=== PATIENT | male | born 1960 | race Caucasian/White ===

== ENCOUNTER 2017-05-03 15:09 | Inpatient (IN) ==
--- NOTE | 2017-05-03 16:19 | Emergency Department Note ---
Radha Dawson Hilary, am scribing for, and in the presence of, Tariq Donis MD 16: 00. Jewels Dawson James D, MD, personally performed the services described in this documentation, ascribed by Maria R Garcia in my presence, and it is both accurate and complete 618 . Arrival - Arrival Chief Complaint: Extremity Problem Stated Complaint: Both legs have blisters/can't walk ED Nursing Triage Note: c/o bilateral lower extremity pain and redness onset 2 weeks ago. Blisters noted to left lower leg. +pedal pulse right foot. Unable to palpate pulse left foot, + pulse left foot with doppler. Skin warm to touch to bilateral feet. Pain worse upon weight bearing. Mode of Arrival: Wheelchair Limitations: No Limitations Source: Patient, RN Notes Reviewed Time Seen by Provider: 05/03/17 15:46 - History of Present Illness HPI Narrative: Pt is a 57 y/o male presenting to the ED with c/o bilateral lower extremity pain and redness which onset 2 weeks ago. He confirms chronic SOB, cough and bilateral lower extremity pain but denies fever or chest pain. He reports being at [facility] this week and was told there was nothing more he could do for him. No other complaints or problems stated in the ED. Onset (ago): week(s) Consistency: constant Severity: severe Severity scale (1-10): 4 Quality: aching Allergies/Adverse Reactions: Allergies Allergy/AdvReac Type Severity Reaction Status Date / Time No Known Allergies Allergy Verified 05/03/17 15:26 Home Medications: Home Medications Medication Instructions Recorded Confirmed Type Digoxin Tab [Lanoxin Tab] 0.25 mg PO QAM 05/03/17 05/03/17 History Furosemide Tab [Lasix Tab] 40 mg PO BID DIURETIC 05/03/17 05/03/17 History Isosorbide Dinitrate 20 mg PO BID 05/03/17 05/03/17 History Lisinopril 40 mg PO DAILY 05/03/17 05/03/17 History Melatonin 10 mg PO BEDTIME 05/03/17 05/03/17 History Metoprolol Tartrate 100 mg PO BID W/MEALS 05/03/17 05/03/17 History Sitagliptin Phos/Metformin HCl 1 each PO BID 05/03/17 05/03/17 History [Janumet 50-1,000 mg Tablet] Warfarin [Coumadin] 5 mg PO BEDTIME 05/03/17 05/03/17 History dilTIAZem HCl [Diltiazem ER (24 360 mg PO DAILY 05/03/17 05/03/17 History hr)] Review of System - Review of System 12 point system: reviewed and no additional remarkable complaints except as stated - Review of System Constitutional: Absent: fever Cardiovascular: Absent: chest pain Gastrointestinal: Absent: abdominal pain Musculoskeletal: Present: leg pain Medical,Surgical,& Family Hx - Medical History Cardio: History of: Cardiac Dysrhythmia (a-fib), CHF, Hypertension Neurology: History of: Peripheral Neuropathy Endocrine: History of: Diabetes Mellitus (IDDM), Dyslipidemia Respiratory: History of: COPD - Surgical History Abdominal Surgeries: Surgical HX of: Hernia Repair - Social History Smoking Status: Current every day smoker Frequency of Alcohol Use: None Type of Drug Use: None Exam Physical Examination: GENERAL: This is a morbidly obese chronically ill-appearing white male in no apparent distress. VITAL SIGNS: Temperature: 97.3 Pulse: 62 Respiratory: 22 Blood Pressure: 127/ 69 O2 Sat: 96 HEENT: Head is normocephalic and atraumatic. Pupils are equally round and reactive to light. Extraocular movement are intact. Oropharynx is benign with moist mucous membranes. NECK: Neck is soft and supple without tenderness. There are no masses. There is no lymphadenopathy. LUNGS: Lungs are clear to auscultation bilaterally. Chest rises symmetrically. There is no chest wall tenderness. CV: Heart is regular rate and rhythm without murmurs, rubs, or gallops. ABDOMEN: Abdomen is soft, non-tender to palpation. There are no abnormal masses palpated. There is no organomegaly. Bowel sounds are present and active. SKIN: Skin is warm and dry. No rash. EXTREMITIES: Patient has full range of motion. There is 3+ pitting pedal edema with weeping vesicles of the pretibia areas, bilaterally. NEUROLOGIC: Awake, alert, and oriented x4. Cranial nerves II through XII are grossly intact. There are no motorsensory deficits. PSYCHIATRIC: Normal affect. Normal mood. Vital Signs: Vital Signs Temperature 97.3 F L 05/03/17 15:34 Pulse Rate 62 05/03/17 15:34 Respiratory Rate 22 05/03/17 15:34 Blood Pressure 127/69 05/03/17 15:34 O2 Sat by Pulse Oximetry 96 05/03/17 15:17 Course Course Narrative: Patient is obviously chronically ill and has been told repeatedly to discontinue cigarette smoking. The patient has also undergone polysomnogram and states that he could not get the machine because "my clinic could not afford it". Patient has recently been hospitalized at [facility] and was told that there was nothing else that can be done for him. The patient is also seen a doctor in [place] who apparently told him the same thing. - Consultations Consultation #1: Discussed with hospitalist. Patient will be seen by them in the emergency department. Time: 17:21 Results - Labs CBC & BMP: 05/03/17 16:16 05/03/17 16:16 Lab Results: I have reviewed the patients labs Labs: Laboratory Tests 05/03/17 05/03/17 16:16 16:55 ABG pH 7.469 H ABG pCO2 38.4 ABG pO2 74.2 L ABG HCO3 27.3 H ABG Total CO2 28.4 H ABG O2 Saturation 95.9 B-Natriuretic Peptide 91 - Diagnostic Findings Procedure: Chest x-ray: image reviewed by me (Cardiomegaly) Disposition Clinical Impression: Obstructive sleep apnea, Lower extremity edema, Nicotine addiction, Medical non -compliance, Skin ulcer of multiple sites of lower extremity, limited to breakdown of skin Case discussed with: patient Disposition: Still a Patient Condition: Stable Time of Disposition: 17:21
[2017-05-03 16:23] LABS: Basophils # 0.1 10*3/uL (0.0-0.2); Basophils % 1.2 % (0.0-0.8); Eosinophils # 0.3 10*3/uL (0.0-0.87); Eosinophils % 2.3 % (0.00-10.9); Hematocrit 44.1 VOL% (42.0-52.0); Hemoglobin 15.1 GM/DL (14.0-18.0); Immature Granulocytes % 0.7 %; Immature Granulocytes Absolute 0.08 #; Lymphocytes # 2.9 10*3/uL (1.4-4.0); Lymphocytes % 26.8 % (21.2-54.2); Mean Corpuscular HGB Conc 34.2 GM/DL (32-36); Mean Corpuscular Hemoglobin 28 PG (27-34); Mean Corpuscular Volume 80.8 FL (87-102); Mean Platelet Volume 10.8 FL (9.6-12.0); Monocytes # 0.7 10*3/uL (0.11-0.8); Monocytes % 6.8 % (1.7-12.7); Neutrophils # 6.7 10*3/uL (1.4-7.4); Neutrophils % 62.2 % (38.7-73.9); Platelet Count 213 T/CUMM (130-400); Red Blood Count 5.46 MC/CUMM (3.8-5.5); Red Cell Distribution Width 17.1 % (9.3-17.3); White Blood Count 10.8 T/CUMM (4-12)
--- NOTE | 2017-05-03 16:24 | XRay Report ---
2 view chest May 03, 2017 at 1610 hours Indication: Shortness of breath Comparison: Not available Findings: Heart size is enlarged. Low lung volumes. Faint central interstitial opacities, may represent atelectasis given poor inspiratory effort. No acute osseous abnormalities. Visualized upper abdomen demonstrates no acute pathology. Impression: Vague central interstitial opacities, representing atelectasis given poor inspiratory effort. Early interstitial edema not excluded. PROCEDURE INTERPRETED AT [facility] DEPARTMENT OF RADIOLOGY Final Report Signed by: Brandon Lomax
[2017-05-03 16:46] LABS: Albumin 3.2 G/DL (3.4-5.0); Bilirubin,Total 0.4 MG/DL (0.2-1.0); Calcium 9.1 MG/DL (8.5-10.1); Osmolality,Calculated 280.7 MOS/KG (273-304); Potassium 4.4 MMOL/L (3.5-5.1); Total Protein 7.4 G/DL (6.4-8.3)
[2017-05-03 17:07] LABS: ABG Base Excess 3.5 MMOL/L (-2.5-2.5); ABG HCO3 27.3 MMOL/L (20-26); ABG Oxygen Saturation 95.9 % (95-100); ABG PCO2 38.4 MM HG (35-48); ABG PH 7.469 (7.35-7.45); ABG PO2 74.2 MM HG (80-95); ABG TCO2 28.4 MMOL/L (23-27); Allen Test Positive; Pt O2 Delivery Device Room Air
--- NOTE | 2017-05-03 18:09 | Hospitalist History & Physical ---
Assessment and Plan - Time spent with patient Time spent with patient: Greater than 30 minutes (1) Blister of lower extremity without infection Status: Acute Assessment and plan: 57-year-old morbidly obese white male with congestive heart failure, diabetes, hypertension, A. fib on Coumadin, chronic lower extremity edema, untreated JOSE A admitted by the hospitalist service with shortness of breath, pulmonary hypertension, and bilateral lower extremity edema with cellulitis and open wounds. Patient will be admitted to a monitored bed and will begin diuresis. Consult Dr. Cronin in the morning for sleep medicine evaluation. Will restart patient's home medications and started him on sliding scale insulin for diabetes management. Will consult wound care nurse in the morning for wound management. Dr. Ladd has seen and examined patient and further recommendations to follow. Current Visit: Yes (2) Diabetes Status: Acute Current Visit: Yes (3) Hypertension Status: Acute Current Visit: Yes (4) A-fib Status: Acute Current Visit: Yes (5) Chronic anticoagulation Status: Acute Current Visit: Yes (6) Congestive heart failure Status: Acute Current Visit: Yes (7) Lower extremity edema Status: Acute Current Visit: Yes (8) Medical non-compliance Status: Acute Current Visit: Yes (9) Nicotine addiction Status: Acute Current Visit: Yes (10) Obstructive sleep apnea Status: Acute Current Visit: Yes History of Present Illness Chief complaint: Lower extremity pain and edema History of present illness: Mr. Montelongo is a 57 year old white male with history of diabetes, hypertension, A. fib on Coumadin, tobacco abuse, CHF, untreated JOSE A and CAD status post stents presenting to the ED with a 1 month history of progressive bilateral lower extremity swelling and pain. Patient states he has always had swelling in his legs with redness but a proximally 1 month ago it seemed to worsen. He was admitted to [facility] for 2 weeks for antibiotics and was recently released. Patient states the swelling worsened along with the redness and pain and he developed blisters that have popped. Patient also states he was admitted to [facility] in the past year where her heart cath with stents were done. They told him at that time he needed a heart bypass but would not do it due to his chronic smoking. Patient sees Dr. 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 Upon exam patient has conversational dyspnea with pitting edema to the knees of bilateral lower extremities with erythema and open blistering. He is afebrile vital signs are stable and his labs are relatively normal. Chest x-ray shows vague interstitial opacities with atelectasis and early interstitial edema. After discussion with Dr. Lino the ED physician and Dr. Ladd the admitting hospitalist, it was agreed patient would be admitted for further evaluation and treatment. Home Medications Medication Instructions Recorded Confirmed Type Digoxin Tab [Lanoxin Tab] 0.25 mg PO QAM 05/03/17 05/03/17 History Furosemide Tab [Lasix Tab] 40 mg PO BID DIURETIC 05/03/17 05/03/17 History Isosorbide Dinitrate 20 mg PO BID 05/03/17 05/03/17 History Lisinopril 40 mg PO DAILY 05/03/17 05/03/17 History Melatonin 10 mg PO BEDTIME 05/03/17 05/03/17 History Metoprolol Tartrate 100 mg PO BID W/MEALS 05/03/17 05/03/17 History Sitagliptin Phos/Metformin HCl 1 each PO BID 05/03/17 05/03/17 History [Janumet 50-1,000 mg Tablet] Warfarin [Coumadin] 5 mg PO BEDTIME 05/03/17 05/03/17 History dilTIAZem HCl [Diltiazem ER (24 360 mg PO DAILY 05/03/17 05/03/17 History hr)] Allergies Allergy/AdvReac Type Severity Reaction Status Date / Time No Known Allergies Allergy Verified 05/03/17 15:26 Medical,Surgical,& Family Hx - Medical History Cardio: History of: Cardiac Dysrhythmia (a-fib), CHF, Hypertension Neurology: History of: Peripheral Neuropathy Endocrine: History of: Diabetes Mellitus (IDDM), Dyslipidemia Respiratory: History of: COPD - Surgical History Cardiac Surgeries: Sugical HX of: Cardiac Catheterization Abdominal Surgeries: Surgical HX of: Hernia Repair - Family History Family History: Reports;: Family Heart Disease - Social History Smoking Status: Current every day smoker Frequency of Alcohol Use: None Type of Drug Use: None Marital Status: Legally Lives With:: Alone Functional capacity: independent ambulation 12 point system: reviewed and no additional remarkable complaints except as stated Exam - Constitutional Vitals: Period Temp Pulse Resp BP Sys/Pierre Pulse Ox Last 24 Hr 97.3 F-97.3 F 62-62 22-22 127-127/69-69 96 Exam: Constitutional System: No distress. [No] tremulousness. Head: Normocephalic, atraumatic. Ears, Nose and Throat System: No evidence of Otitis or Mastoiditis. No epistaxis or discharge Eyes System: Pupils equal, round, and reactive. Extraocular muscles intact. Neck: Supple, without adenopathy, [No] jugular venous distention. No thyromegaly , neck mass, or prior surgery apparent. Respiratory System: Chest [clear] to auscultation. Cardiovascular System: Heart with [regular] rate and rhythm. [No] murmur. GI System: Abdomen [soft], [non]tender, obese. [Normo]active bowel sounds present. Musculoskeletal System: limbs with +4 pitting edema to the knees, erythema, open draining blisters bilateral. Doppler distal pulses. Neurological System: [No discernable] sensory deficit. [No] aphasia Psychiatric System: Conversation is [rational] Results - Labs CBC & BMP: 05/03/17 16:16 05/03/17 16:16 Lab Results: I have reviewed the past 24 hour labs - Diagnostic Findings Procedure: Chest x-ray: report reviewed by me (Vague central interstitial opacities, representing atelectasis given poor inspiratory effort. Early interstitial edema not excluded)
[2017-05-03 18:30] LABS: INR 2.4
[2017-05-03 18:35] LABS: PT Patient Result 26.7 SECS
[2017-05-03] MEDS ORDERED: GLUCAGON 1 MG VIAL IM PRN (18:59)
[2017-05-03] MEDS ORDERED: ONDANSETRON 4 MG/2 ML VIAL IV PRN (18:59)
[2017-05-03] MEDS ORDERED: DEXTROSE 50% 25 GM/50 ML SYRINGE IV PRN (18:59)
[2017-05-03 19:01] LABS: Free T4 (Free Thyroxine) 0.99 NG/DL (0.76-1.46); Thyroid Stimulating Hormone 1.57 uIU/ml (0.358-3.74)
[2017-05-03] MEDS: FUROSEMIDE 40 MG/4 ML VIAL IV SCH (21:05)
[2017-05-03] MEDS: ISOSORBIDE DINITRATE 20 MG TABLET PO SCH (21:33)
[2017-05-03] MEDS: MELATONIN 3 MG TABLET PO SCH (21:33)
[2017-05-03] MEDS: INSULIN LISPRO 100 UNIT/ML SUBCUT SCH (21:33)
[2017-05-03] MEDS: sitaGLIPtin 25 MG TABLET PO SCH (21:34)
[2017-05-03] MEDS: metFORMIN 500 MG TABLET PO SCH (21:34)
[2017-05-03] MEDS: WARFARIN 5 MG TABLET PO SCH (21:35)
[2017-05-04] MEDS: FUROSEMIDE 40 MG/4 ML VIAL IV SCH ×4 (03:08→20:32)
[2017-05-04 04:16] LABS: Basophils # 0.1 10*3/uL (0.0-0.2); Basophils % 1.6 % (0.0-0.8); Eosinophils # 0.4 10*3/uL (0.0-0.87); Eosinophils % 4.3 % (0.00-10.9); Hematocrit 45.9 VOL% (42.0-52.0); Hemoglobin 15.4 GM/DL (14.0-18.0); Immature Granulocytes % 0.7 %; Immature Granulocytes Absolute 0.06 #; Lymphocytes # 2.9 10*3/uL (1.4-4.0); Lymphocytes % 34.4 % (21.2-54.2); Mean Corpuscular HGB Conc 33.6 GM/DL (32-36); Mean Corpuscular Hemoglobin 27 PG (27-34); Mean Corpuscular Volume 81.5 FL (87-102); Mean Platelet Volume 11.1 FL (9.6-12.0); Monocytes # 0.6 10*3/uL (0.11-0.8); Monocytes % 7.5 % (1.7-12.7); Neutrophils # 4.3 10*3/uL (1.4-7.4); Neutrophils % 51.5 % (38.7-73.9); Platelet Count 220 T/CUMM (130-400); Red Blood Count 5.63 MC/CUMM (3.8-5.5); Red Cell Distribution Width 17.9 % (9.3-17.3); White Blood Count 8.3 T/CUMM (4-12)
[2017-05-04 04:36] LABS: Hemoglobin A1C 8.1 % (4.2-6.3)
[2017-05-04 04:51] LABS: Calcium 8.9 MG/DL (8.5-10.1); Osmolality,Calculated 276.7 MOS/KG (273-304); Potassium 3.8 MMOL/L (3.5-5.1); Risk Ratio 7.53; VLDL CHOLESTEROL 90.4 MG/DL
--- NOTE | 2017-05-04 06:58 | EKG Report ---
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
[2017-05-04] MEDS ORDERED: POTASSIUM CHLORIDE RIDER 10 MEQ in PREMIX 1 EACH IV PRN (07:51)
[2017-05-04] MEDS ORDERED: MAGNESIUM SULF RIDER 4 GM in PREMIX 1 EACH IV PRN (07:51)
[2017-05-04] MEDS ORDERED: MAGNESIUM SULF RIDER 2 GM in PREMIX 1 EACH IV PRN (07:51)
[2017-05-04 08:13] LABS: Apearance,Urine CLEAR (Clear); Bilirubin,Urine Negative (Negative); Blood, Urine Negative (Negative); Glucose,Urine (UA) Negative (Negative); Ketones,Urine Negative (Negative); Mucus,Urine Occasional /LPF (Occasional); Nitrite,Urine Negative (Negative); Protein,Urine 30 MG/DL; RBC,Urine <1 /HPF (0-4); Squamous Epithelial Cell,Urine Occasional /HPF (0-10); Urine Color Yellow (Yellow); Urine Urobilinogen < 2.0 EU/DL (0.2-1.0); WBC,Urine <1 /HPF (0-6)
--- NOTE | 2017-05-04 08:55 | Hospitalist Progress Note ---
<Jackie Delucada - Last Filed: 05/04/17 08:52> Assessment and Plan (1) Chronic anticoagulation Status: Acute Assessment and plan: The patient is chronically coagulated with warfarin. No INR ordered for this morning, we will order stat INR and adjust Coumadin accordingly. Current Visit: Yes (2) Lower extremity edema Status: Acute Assessment and plan: The wounds to the bilateral lower extremities are chronic in nature. We will obtain a surgery consultation for recommendations for care. In addition, we will obtain wound culture and sent for analysis. Current Visit: Yes (3) Obstructive sleep apnea Status: Acute Assessment and plan: Sleep medicine consultation has been requested. Current Visit: Yes (4) Skin ulcer of multiple sites of lower extremity, limited to breakdown of skin Status: Acute Assessment and plan: We will obtain wound culture and consult surgery for further evaluation. We will continue empiric antibiotic as previously ordered. Current Visit: Yes (5) Hyperlipidemia Status: Acute Assessment and plan: Lipid panel obtained at the time of admission reported gross elevations in the patient's cholesterol panel including triglycerides at 452, cholesterol 226, and HDL cholesterol at 30. The patient reported that he had previously been on a lipid-lowering agent however he had run out of his medication. We will start pravastatin 40 mg nightly. Current Visit: Yes Hospitalist: Subjective Interval history: Patient seen and examined; chart reviewed. No significant overnight events reported per staff. Patient reported insomnia on last night. States "I just could not get it together" Exam - Constitutional Vitals: Period Temp Pulse Resp BP Sys/Pierre Pulse Ox Last 24 Hr 96.4 F-97.8 F 62-88 18-24 127-183/69-88 93-97 General appearance: no acute distress, over weight - Head Head exam: Present: normal inspection, normocephalic, atraumatic - Eye Eye exam: Present: EOMI. Absent: conjunctival injection Pupils: Present: NAT, normal accommodation - ENT ENT exam: Present: normal exam, normal external ear exam, normal oropharynx - Neck Neck exam: Present: normal inspection. Absent: lymphadenopathy, meningismus, tenderness, thyromegaly - Respiratory Respiratory exam: Present: clear to auscultation bilaterally. Absent: rales, rhonchi, stridor, wheezes - Cardiovascular Cardiovascular exam: Present: regular rate and rhythm. Absent: carotid bruit, diastolic murmur, gallop, JVD, rubs, systolic murmur - GI/Abdominal GI/Abdominal exam: Present: normal bowel sounds, soft - Extremities Exam Extremities exam: Present: edema (+4 pitting edema noted to bilateral lower extremities), other (Multiple open areas with serous colored fluid drainage appreciated.) - Back Exam Back exam: Present: normal inspection - Neurological Exam Neurological exam: Present: alert, oriented X3 - Psychiatric Psychiatric exam: Present: normal affect - Skin Skin exam: Present: normal color, warm, dry Results - Labs CBC & BMP: 05/04/17 03:30 05/04/17 03:30 Lab Results: I have reviewed the past 24 hour labs Quality Measures - VTE Contraindication to Pharmacological VTE Prophylaxis: Already on Theraputic Agent , No Prophylaxis Needed <Jayden Smith - Last Filed: 05/04/17 10:04> Hospitalist: Subjective Interval history: Patient was admitted to the hospital last night with bilateral lower extremities cellulitis and weeping vesicles. He will be treated with IV antibiotics. Wound Care and Surgery have been consulted. I, Jayden Smith MD have examined the patient and agree with the assessment and plans. Exam - Constitutional Vitals: Period Temp Pulse Resp BP Sys/Pierre Pulse Ox Last 24 Hr 96.4 F-97.8 F 62-92 18-24 127-183/69-88 93-97 Results - Labs CBC & BMP: 05/04/17 03:30 05/04/17 03:30
[2017-05-04] MEDS: sitaGLIPtin 25 MG TABLET PO SCH ×2 (09:34→20:33)
[2017-05-04] MEDS: DIGOXIN 0.25 MG TABLET PO SCH (09:35)
[2017-05-04] MEDS: LISINOPRIL 20 MG TABLET PO SCH (09:35)
[2017-05-04] MEDS: DILTIAZEM CD 180 MG CAPSULE PO SCH (09:35)
[2017-05-04] MEDS: ISOSORBIDE DINITRATE 20 MG TABLET PO SCH ×2 (09:36→20:33)
[2017-05-04] MEDS: METOPROLOL TARTRATE 100 MG TABLET PO SCH ×2 (09:36→17:16)
[2017-05-04] MEDS: metFORMIN 500 MG TABLET PO SCH ×2 (09:36→20:33)
[2017-05-04] MEDS: INSULIN LISPRO 100 UNIT/ML SUBCUT SCH ×4 (09:37→20:32)
[2017-05-04 10:12] LABS: INR 2.5
[2017-05-04 10:17] LABS: PT Patient Result 28.3 SECS
--- NOTE | 2017-05-04 12:43 | General Surgery Consult Note ---
Assessment and Plan - Time spent with patient Time spent with patient: Less than 30 minutes (1) Cellulitis Status: Acute Assessment and plan: The patient appears to have bilateral lower extremity cellulitis in the setting of chronic stasis dermatitis secondary to chronic edema of his lower extremities. It does not appear to involve an underlying abscess. This needs to be treated with antibiotics and compression therapy to hopefully limit the edema of his lower legs to allow the cellulitis to clear. This can be difficult to clear up because of the chronic changes of the skin and soft tissues of his lower leg. We can try culturing some of the fluid from the knee the bulla which appear to be limited to the epidermis. Current Visit: Yes Qualifiers: Site of cellulitis of extremity: lower extremity Laterality: unspecified laterality History of Present Illness Chief complaint: Infection both legs History of present illness: Mr. Montelongo is a 57 year old male Who for several months has had lower extremity edema and over the last month he has had swelling pain and erythema of both of his lower extremities. He is not having severe pain. He states that his legs have not really gotten better in the last couple of weeks despite the fact that he was hospitalized at [facility] for 2 weeks on IV antibiotics. I do not have these records and do not know what antibiotic they were using. The patient gives history of subjective fever but he has not had any here. He has had some blistering of several of these areas on both of his lower extremities and drained clear fluid. He has not had pus. Home Medications Medication Instructions Recorded Confirmed Type Digoxin Tab [Lanoxin Tab] 0.25 mg PO QAM 05/03/17 05/03/17 History Furosemide Tab [Lasix Tab] 40 mg PO BID DIURETIC 05/03/17 05/03/17 History Isosorbide Dinitrate 40 mg PO BID 05/03/17 05/03/17 History Lisinopril 40 mg PO DAILY 05/03/17 05/03/17 History Melatonin 10 mg PO BEDTIME 05/03/17 05/03/17 History Metoprolol Tartrate 100 mg PO BID W/MEALS 05/03/17 05/03/17 History Sitagliptin Phos/Metformin HCl 1 each PO BID 05/03/17 05/03/17 History [Janumet 50-1,000 mg Tablet] Warfarin [Coumadin] 5 mg PO BEDTIME 05/03/17 05/03/17 History dilTIAZem HCl [Diltiazem ER (24 360 mg PO DAILY 05/03/17 05/03/17 History hr)] Allergies Allergy/AdvReac Type Severity Reaction Status Date / Time No Known Allergies Allergy Verified 05/03/17 15:26 Medical,Surgical,& Family Hx - Medical History Cardio: History of: Cardiac Dysrhythmia (a-fib), CHF, Hypertension Neurology: History of: Peripheral Neuropathy Endocrine: History of: Diabetes Mellitus (IDDM), Dyslipidemia Respiratory: History of: Asthma, COPD - Surgical History Cardiac Surgeries: Sugical HX of: Cardiac Catheterization Abdominal Surgeries: Surgical HX of: Hernia Repair - Family History Family History: Reports;: Family Heart Disease - Social History Smoking Status: Current every day smoker Frequency of Alcohol Use: None Type of Drug Use: None - Constitutional Constitutional: Present: anorexia, chills, fever(s) - Cardiovascular Cardiovascular: Absent: chest pain at rest, chest pain with activity - Respiratory Respiratory: Present: dyspnea, dyspnea on exertion. Absent: hemoptysis - Gastrointestinal Gastrointestinal: Absent: abdominal pain - Musculoskeletal Musculoskeletal: Present: back pain - Neurological Neurological: Absent: focal weakness, syncope Exam - Constitutional Vitals: Period Temp Pulse Resp BP Sys/Pierre Pulse Ox Last 24 Hr 96.4 F-97.8 F 62-94 18-24 127-183/69-88 92-97 General appearance: no acute distress, morbidly obese - Head Head exam: Present: normocephalic - Eye Eye exam: Absent: scleral icterus - ENT Mouth exam: Present: normal voice - Neck Neck exam: Present: trachea midline - Respiratory Respiratory exam: Absent: accessory muscle use - GI/Abdominal GI/Abdominal exam: Present: soft. Absent: distended, tenderness - Extremities Exam Extremities exam: Present: edema, other (He has erythema and chronic skin change with stasis dermatitis of both of his lower extremities between the mid lower leg and his ankle. There are several small areas of epidermal lysis without purulence.). Absent: calf tenderness Quality Measures - VTE Contraindication to Pharmacological VTE Prophylaxis: Already on Theraputic Agent , No Prophylaxis Needed Results - Labs CBC & BMP: 05/04/17 03:30 05/04/17 03:30 Lab Results: I have reviewed the past 24 hour labs
[2017-05-04] MEDS: VANCOMYCIN INJ 2,250 MG in SODIUM CHLORIDE 0.9% 500 ML IV SCH (13:28)
--- NOTE | 2017-05-04 15:05 | Sleep Medicine Consult ---
Assessment and Plan (1) Obstructive sleep apnea Status: Chronic Assessment and plan: This patient does have a history of obstructive sleep apnea by previous evaluation in [facility]. We will need to confirm diagnosis and I am going to obtain home sleep testing on him tonight while hospitalized. Hopefully we can secure diagnosis that will allow us to prescribe CPAP for him. We will follow-up on those results tomorrow and schedule him for follow-up after initiation of treatment. Thank you for this consult. Current Visit: Yes (2) Hypertension Status: Chronic Assessment and plan: The prevalence rate for obstructive sleep apnea patients with hypertension is 35 %. That rate can be as high as 80% in patients who require 4 or more medications for blood pressure control. Current Visit: Yes (3) Diabetes Status: Chronic Assessment and plan: The prevalence rate for obstructive sleep apnea in patients with type 2 diabetes can be as high as 86%. Those patients with moderate to severe obstructive sleep apnea are at a greater risk for diabetic nephropathy and neuropathy. Compliance with CPAP therapy for these patients can lead to improvement in glycemic control and improvement in insulin sensitivity. Current Visit: Yes (4) A-fib Status: Chronic Assessment and plan: The prevalence for JOSE A in these patients is as high as 80% and treating the underlying sleep apnea can improve management of A. fib. Current Visit: Yes (5) Congestive heart failure Status: Acute Assessment and plan: Untreated sleep apnea can be a contributing factor to CHF exacerbations whether diastolic or systolic in origin. Current Visit: Yes History of Present Illness Chief complaint: Sleep apnea History of present illness: Mr. Montelongo is a 57 year old male with multiple medical problems admitted with congestive heart failure, atrial fib, and questionable diabetic leg ulcer. Sleep medicine was consulted to evaluate him. He apparently had been diagnosed with obstructive sleep apnea many years ago in [place], [place]. He was unable to afford CPAP at that time. He continues to have issues with snoring, abnormal breathing during sleep, frequent awakenings secondary to shortness of breath, nocturia, and witnessed apneas. He states that he knows his sleep apnea still severe but he just never has been able to be treated. He has an irregular sleep time. He basically has a chair to bathroom existence. He sits and sleeps in his chair and gets up to go to the bathroom multiple times. He awakens from sleep short of breath. He easily falls asleep while watching television. He currently lives in [place]. Home Medications Medication Instructions Recorded Confirmed Type Digoxin Tab [Lanoxin Tab] 0.25 mg PO QAM 05/03/17 05/03/17 History Furosemide Tab [Lasix Tab] 40 mg PO BID DIURETIC 05/03/17 05/03/17 History Isosorbide Dinitrate 40 mg PO BID 05/03/17 05/03/17 History Lisinopril 40 mg PO DAILY 05/03/17 05/03/17 History Melatonin 10 mg PO BEDTIME 05/03/17 05/03/17 History Metoprolol Tartrate 100 mg PO BID W/MEALS 05/03/17 05/03/17 History Sitagliptin Phos/Metformin HCl 1 each PO BID 05/03/17 05/03/17 History [Janumet 50-1,000 mg Tablet] Warfarin [Coumadin] 5 mg PO BEDTIME 05/03/17 05/03/17 History dilTIAZem HCl [Diltiazem ER (24 360 mg PO DAILY 05/03/17 05/03/17 History hr)] Allergies Allergy/AdvReac Type Severity Reaction Status Date / Time No Known Allergies Allergy Verified 05/03/17 15:26 Review of systems: Other than for his sleep-related symptoms, he does have issues with lower extremity swelling. He is unable to lie down in the bed due to dyspnea. Exam (Pulmonay) H&P - Constitutional Vitals: Period Temp Pulse Resp BP Sys/Pierre Pulse Ox Last 24 Hr 96.4 F-97.8 F 62-94 18-24 127-183/69-88 92-97 Exam: Patient is alert and oriented and pleasant. Pupils equal round reactive to light and accommodation. Extraocular movements intact. Oropharynx with a class IV Mallampati exam with dry oral mucosa. Neck is supple without adenopathy or thyromegaly. No supraclavicular adenopathy is noted. Chest with symmetrical breath sounds without focal wheeze, rhonchi, or rales. Cardiac exam reveals a regular rhythm without murmur or gallop. Abdomen obese nontender without palpable organomegaly or mass. Extremities with chronic venous insufficiency changes and trace edema. Neurologically, he is grossly intact. He answered all questions appropriately and moves all extremities with good strength. Medical,Surgical,& Family Hx - Medical History Cardio: History of: Cardiac Dysrhythmia (a-fib), CHF, Hypertension Neurology: History of: Peripheral Neuropathy Endocrine: History of: Diabetes Mellitus (IDDM), Dyslipidemia Respiratory: History of: Asthma, COPD - Surgical History Cardiac Surgeries: Sugical HX of: Cardiac Catheterization Abdominal Surgeries: Surgical HX of: Hernia Repair - Family History Family History: Reports;: Family Heart Disease - Social History Smoking Status: Current every day smoker Frequency of Alcohol Use: None Type of Drug Use: None Results - Labs CBC & BMP: 05/04/17 03:30 05/04/17 03:30 Lab Results: I have reviewed the past 24 hour labs Labs: TSH was within normal limits. Serum bicarb was only mildly elevated. Quality Measures - VTE Contraindication to Pharmacological VTE Prophylaxis: Already on Theraputic Agent , No Prophylaxis Needed
--- NOTE | 2017-05-04 20:08 | Cardiology Consult Note ---
I, Mayra Caballero RN, am scribing for, and in the presence of, Joshua Marte MD 20:07. Assessment and Plan - Time spent with patient Time spent with patient: Greater than 30 minutes (Due to assessment, planning, documentation, medication review) (1) Lower extremity edema Status: Acute Assessment and plan: Patient's A. fib rate is controlled His lower extremity edema and redness and weeping to me seems more consistent with venous disease of the legs and cellulitis. Differential diagnosis would include right heart failure, left heart failure, some intra-abdominal abnormality, low albumin, hypothyroidism. My plan/recommendation: Check echo/Doppler Consult Dr. Cronin regarding sleep apnea Sleep propped up if cannot afford the CPAP Continue Coumadin to help prevent blood clots Check BNP Check albumin Check TSH if not done Elevate legs above the level of heart 10 minutes twice a day, if can Agree with Lasix Prognosis is guarded if he is unable to use CPAP, lose some weight, and get more active. However, I do not think any of these will happen. Thank you for allowing me to participate in this patient's care Current Visit: Yes (2) A-fib Status: Chronic Current Visit: Yes (3) Chronic anticoagulation Status: Chronic Current Visit: Yes (4) Diabetes Status: Chronic Current Visit: Yes (5) Hyperlipidemia Status: Chronic Current Visit: Yes (6) Hypertension Status: Chronic Current Visit: Yes (7) Nicotine addiction Status: Chronic Current Visit: Yes (8) Obstructive sleep apnea Status: Chronic Current Visit: Yes (9) Skin ulcer of multiple sites of lower extremity, limited to breakdown of skin Status: Acute Current Visit: Yes History of Present Illness - Data of Consult Patient: new to practice Consult date: 05/04/17 Requesting Physician: Raymond Deluca - Consult Narrative Reason for consult: CHF 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 Steven at [place] Mr. Montelongo is a 57 year old male with a history of CAD, A. fib, hypertension, peripheral neuropathy, IDDM, COPD, and JOSE A. He reports he was diagnosed with sleep apnea several years ago but never got a CPAP machine because he cannot afford it. He is anticoagulated on warfarin for his atrial fibrillation. He reports having heart cath with stents in [place] several years ago. He told the admitting physician he had been admitted to [facility] and [facility] within the past year where he had heart cath with stents. He did not mention this to me. He has also had hernia repair and removal of salivary glands. He was orphaned as a child and does not know his family, he only knows his grandmother was diabetic and heart disease. He is a current everyday smoker, was smoking 2 packs a day, he is down to 2 cigars a day now. He presented to the emergency department [facility] yesterday because of a one half month history of progressive bilateral lower extremity edema, redness, and pain. He was treated [facility] with antibiotics and was recently released. After discharge from [facility], the edema and redness worsened and he developed blisters that have now burst. He reports having chest pain sometimes at night that he describes as an ache on the right side of his chest. He says the pain usually lasts for 2 minutes and usually goes away on its own. He rates it a 5 on a scale of 1-10. He has shortness of breath at rest, dyspnea on exertion, and orthopnea. He said these are not necessarily associated with the chest pain. His chest pain is not reproducible with palpation. His blood pressure was elevated last night, but his home medications been restarted this morning. Blood pressure this morning 137/79. Troponin was negative 1. He has been started on Lasix 40 mg IV every 6 hours. Potassium this morning was 3.8, this is been replaced per protocol. His triglycerides are elevated at 452 and cholesterol at 226, HDL is low at 30. Pravastatin 40 mg nightly has been started. BNP was 91. EKGs on admission showed atrial fibrillation with heart rates in the 60s. INR is 2.5. Chest x- ray showed vague central interstitial opacities. He is currently pain-free except for his lower extremities. Bilateral lower extremities noted with pitting edema as well as redness and open sores. He is not short of breath at this time. 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 CC: Jayden Smith - Home Medications and Allergies Home Medications: Home Medications Medication Instructions Recorded Confirmed Type Digoxin Tab [Lanoxin Tab] 0.25 mg PO QAM 05/03/17 05/03/17 History Furosemide Tab [Lasix Tab] 40 mg PO BID DIURETIC 05/03/17 05/03/17 History Isosorbide Dinitrate 40 mg PO BID 05/03/17 05/03/17 History Lisinopril 40 mg PO DAILY 05/03/17 05/03/17 History Melatonin 10 mg PO BEDTIME 05/03/17 05/03/17 History Metoprolol Tartrate 100 mg PO BID W/MEALS 05/03/17 05/03/17 History Sitagliptin Phos/Metformin HCl 1 each PO BID 05/03/17 05/03/17 History [Janumet 50-1,000 mg Tablet] Warfarin [Coumadin] 5 mg PO BEDTIME 05/03/17 05/03/17 History dilTIAZem HCl [Diltiazem ER (24 360 mg PO DAILY 05/03/17 05/03/17 History hr)] Allergies/Adverse Reactions: Allergies Allergy/AdvReac Type Severity Reaction Status Date / Time No Known Allergies Allergy Verified 05/03/17 15:26 - Constitutional Constitutional: Present: as per HPI - EENT Eyes: Present: requires corrective lense Ears: Present: decreased hearing. Absent: tinnitus Nose, mouth and throat: Absent: epistaxis, headache(s), neck pain - Cardiovascular Cardiovascular: Present: chest pain at rest, dyspnea, dyspnea on exertion, edema , orthopnea. Absent: diaphoresis, radiating jaw, neck or arm pain, lightheadedness, palpitations - Respiratory Respiratory: Present: cough, dyspnea, dyspnea on exertion. Absent: hemoptysis, wheezing - Gastrointestinal Gastrointestinal: Absent: abdominal pain, constipation, diarrhea, hematemesis, hematochezia, melena, nausea, vomiting - Genitourinary Genitourinary: Absent: dysuria, hematuria - Musculoskeletal Musculoskeletal: Present: limited range of motion, muscle weakness. Absent: back pain - Neurological Neurological: Present: abnormal gait. Absent: confusion, dizziness, frequent falls, headache(s) - Psychiatric Psychiatric: Absent: anxiety, depression - Endocrine Endocrine: Present: fatigue - Hematologic/Lymphatic Hematologic/Lymphatic: Present: easy bruising. Absent: easy bleeding Medical,Surgical,& Family Hx - Medical History Cardio: History of: Cardiac Dysrhythmia (a-fib), CAD, Hypertension Neurology: History of: Peripheral Neuropathy Endocrine: History of: Diabetes Mellitus (IDDM), Dyslipidemia Respiratory: History of: Asthma, COPD - Surgical History Cardiac Surgeries: Sugical HX of: Cardiac Catheterization Abdominal Surgeries: Surgical HX of: Hernia Repair Additional Surgical History: Removal of salivary glands - Family History Family History: Reports;: Family Diabetes (Grandmother), Family Heart Disease ( Grandmother) - Social History Smoking Status: Current every day smoker Have you smoked in the last 12 months: Yes Time spent discussing smoking cessation with patient: 3 to 10 minutes Frequency of Alcohol Use: None Type of Drug Use: None Marital Status: Single Lives With:: Alone Functional capacity: uses cane/walker Physical Examination Vital Signs Temp Pulse Resp BP Pulse Ox 97.3 F L 62 22 127/69 96 05/03/17 15:17 05/03/17 15:17 05/03/17 15:17 05/03/17 15:17 05/03/17 15:17 General: Present: Appears Well, No Apparent Distress HEENT: Present: PERRL, Mucus Membranes Moist Neck: Present: Supple Neck, Midline Trachea, No Bruit Cardiac: Present: Irregularly Regular, No Murmur Lungs: Present: Normal Breath Sounds, No Wheeze, Rales, Rhonchi Neuro: Absent: Resting Tremor, Essential Tremor Abdomen: Present: Soft, Active Bowel Sounds, Non-Tender. Absent: Distended Skin: Present: Other (Bilateral lower extremities below the knee with redness and open draining blisters) Musculoskeletal: Present: Decreased Range of Motion, Pain in Joint Gait: Present: Poor Gait Extremities: Present: Normal Upper Extr. Pulses, +4 Edema (Bilateral lower extremities). Absent: Normal Gait, Normal Lower Extr. Pulses (Diminished pulses bilaterally) Result/EKG - Labs CBC & BMP: 05/04/17 03:30 05/04/17 03:30 Lab Results: I have reviewed the past 24 hour labs Labs: Laboratory Results - last 24 hr 05/03/17 05/03/17 05/03/17 16:16 16:16 16:16 WBC 10.8 RBC 5.46 Hgb 15.1 Hct 44.1 MCV 80.8 L MCH 28 MCHC 34.2 RDW 17.1 Plt Count 213 MPV 10.8 Neut % (Auto) 62.2 Lymph % (Auto) 26.8 [place] % (Auto) 6.8 Eos % (Auto) 2.3 Baso % (Auto) 1.2 H Neut # (Auto) 6.7 Lymph # (Auto) 2.9 [place] # (Auto) 0.7 Eos # (Auto) 0.3 Baso # (Auto) 0.1 Immature Gran % 0.7 Nucleated RBC % 0.0 Immature Gran # 0.08 Nucleated RBCs # 0.00 Immature Plt Fraction 0.0 INR PT Patient/Control Mix ABG pH ABG pCO2 ABG pO2 ABG HCO3 ABG Total CO2 ABG O2 Saturation ABG Base Excess FiO2 Sodium 138 Potassium 4.4 Chloride 101 Carbon Dioxide 29 Anion Gap 12.4 BUN 14 Creatinine 0.90 GFR Calculation 143 BUN/Creatinine Ratio 15.00 Glucose 186 H POC Glucose Hemoglobin A1c Calculated Osmolality 280.7 Calcium 9.1 Total Bilirubin 0.40 AST 20 ALT 19 Alkaline Phosphatase 82 Troponin I B-Natriuretic Peptide 91 Total Protein 7.4 Albumin 3.2 L Globulin 4.2 H Albumin/Globulin Ratio 0.7 L Triglycerides Cholesterol LDL Cholesterol VLDL Cholesterol HDL Cholesterol Heart Disease Risk Ratio Free T4 TSH 3rd Generation Urine Color Urine Appearance Urine pH Ur Specific Clark Urine Protein Urine Glucose (UA) Urine Ketones Urine Blood Urine Nitrate Urine Bilirubin Urine Urobilinogen Urine Leukocytes Urine RBC Urine WBC Ur Squamous Epith Cells Urine Mucus Ur Culture Indicated? Digoxin 05/03/17 05/03/17 05/03/17 16:18 16:18 16:18 WBC RBC Hgb Hct MCV MCH MCHC RDW Plt Count MPV Neut % (Auto) Lymph % (Auto) Gal[place] % (Auto) Eos % (Auto) Baso % (Auto) Neut # (Auto) Lymph # (Auto) [place] # (Auto) Eos # (Auto) Baso # (Auto) Immature Gran % Nucleated RBC % Immature Gran # Nucleated RBCs # Immature Plt Fraction INR 2.4 PT Patient/Control Mix 26.7 ABG pH ABG pCO2 ABG pO2 ABG HCO3 ABG Total CO2 ABG O2 Saturation ABG Base Excess FiO2 Sodium Potassium Chloride Carbon Dioxide Anion Gap BUN Creatinine GFR Calculation BUN/Creatinine Ratio Glucose POC Glucose Hemoglobin A1c Calculated Osmolality Calcium Total Bilirubin AST ALT Alkaline Phosphatase Troponin I < 0.015 B-Natriuretic Peptide Total Protein Albumin Globulin Albumin/Globulin Ratio Triglycerides Cholesterol LDL Cholesterol VLDL Cholesterol HDL Cholesterol Heart Disease Risk Ratio Free T4 0.99 TSH 3rd Generation 1.570 Urine Color Urine Appearance Urine pH Ur Specific Clark Urine Protein Urine Glucose (UA) Urine Ketones Urine Blood Urine Nitrate Urine Bilirubin Urine Urobilinogen Urine Leukocytes Urine RBC Urine WBC Ur Squamous Epith Cells Urine Mucus Ur Culture Indicated? Digoxin 0905/03/17 05/03/17 16:55 18:25 21:21 WBC RBC Hgb Hct MCV MCH MCHC RDW Plt Count MPV Neut % (Auto) Lymph % (Auto) Galax % (Auto) Eos % (Auto) Baso % (Auto) Neut # (Auto) Lymph # (Auto) [place] # (Auto) Eos # (Auto) Baso # (Auto) Immature Gran % Nucleated RBC % Immature Gran # Nucleated RBCs # Immature Plt Fraction INR PT Patient/Control Mix ABG pH 7.469 H ABG pCO2 38.4 ABG pO2 74.2 L ABG HCO3 27.3 H ABG Total CO2 28.4 H ABG O2 Saturation 95.9 ABG Base Excess 3.5 H FiO2 21.00 Sodium Potassium Chloride Carbon Dioxide Anion Gap BUN Creatinine GFR Calculation BUN/Creatinine Ratio Glucose POC Glucose 127 H 163 H Hemoglobin A1c Calculated Osmolality Calcium Total Bilirubin AST ALT Alkaline Phosphatase Troponin I B-Natriuretic Peptide Total Protein Albumin Globulin Albumin/Globulin Ratio Triglycerides Cholesterol LDL Cholesterol VLDL Cholesterol HDL Cholesterol Heart Disease Risk Ratio Free T4 TSH 3rd Generation Urine Color Urine Appearance Urine pH Ur Specific Clark Urine Protein Urine Glucose (UA) Urine Ketones Urine Blood Urine Nitrate Urine Bilirubin Urine Urobilinogen Urine Leukocytes Urine RBC Urine WBC Ur Squamous Epith Cells Urine Mucus Ur Culture Indicated? Digoxin 05/04/17 05/04/17 05/04/17 03:30 03:30 03:30 WBC 8.3 RBC 5.63 H Hgb 15.4 Hct 45.9 MCV 81.5 L MCH 27 MCHC 33.6 RDW 17.9 H Plt Count 220 MPV 11.1 Neut % (Auto) 51.5 Lymph % (Auto) 34.4 [place]ax % (Auto) 7.5 Eos % (Auto) 4.3 Baso % (Auto) 1.6 H Neut # (Auto) 4.3 Lymph # (Auto) 2.9 [place] # (Auto) 0.6 Eos # (Auto) 0.4 Baso # (Auto) 0.1 Immature Gran % 0.7 Nucleated RBC % 0.0 Immature Gran # 0.06 Nucleated RBCs # 0.00 Immature Plt Fraction 0.0 INR PT Patient/Control Mix ABG pH ABG pCO2 ABG pO2 ABG HCO3 ABG Total CO2 ABG O2 Saturation ABG Base Excess FiO2 Sodium 138 Potassium 3.8 Chloride 100 Carbon Dioxide 31 Anion Gap 10.8 BUN 11 Creatinine 0.80 GFR Calculation 150 BUN/Creatinine Ratio 13.00 Glucose 149 H POC Glucose Hemoglobin A1c 8.1 H Calculated Osmolality 276.7 Calcium 8.9 Total Bilirubin AST ALT Alkaline Phosphatase Troponin I B-Natriuretic Peptide Total Protein Albumin Globulin Albumin/Globulin Ratio Triglycerides 452 H Cholesterol 226 H LDL Cholesterol 134.0 VLDL Cholesterol 90.4 HDL Cholesterol 30 L Heart Disease Risk Ratio 7.53 Free T4 TSH 3rd Generation Urine Color Urine Appearance Urine pH Ur Specific Clark Urine Protein Urine Glucose (UA) Urine Ketones Urine Blood Urine Nitrate Urine Bilirubin Urine Urobilinogen Urine Leukocytes Urine RBC Urine WBC Ur Squamous Epith Cells Urine Mucus Ur Culture Indicated? Digoxin 0.80 L 05/04/17 05/04/17 05/04/17 07:00 07:09 09:28 WBC RBC Hgb Hct MCV MCH MCHC RDW Plt Count MPV Neut % (Auto) Lymph % (Auto) [place] % (Auto) Eos % (Auto) Baso % (Auto) Neut # (Auto) Lymph # (Auto) [place] # (Auto) Eos # (Auto) Baso # (Auto) Immature Gran % Nucleated RBC % Immature Gran # Nucleated RBCs # Immature Plt Fraction INR 2.5 PT Patient/Control Mix 28.3 ABG pH ABG pCO2 ABG pO2 ABG HCO3 ABG Total CO2 ABG O2 Saturation ABG Base Excess FiO2 Sodium Potassium Chloride Carbon Dioxide Anion Gap BUN Creatinine GFR Calculation BUN/Creatinine Ratio Glucose POC Glucose 174 H Hemoglobin A1c Calculated Osmolality Calcium Total Bilirubin AST ALT Alkaline Phosphatase Troponin I B-Natriuretic Peptide Total Protein Albumin Globulin Albumin/Globulin Ratio Triglycerides Cholesterol LDL Cholesterol VLDL Cholesterol HDL Cholesterol Heart Disease Risk Ratio Free T4 TSH 3rd Generation Urine Color Yellow Urine Appearance Clear Urine pH 5.0 Ur Specific Clark 1.010 Urine Protein 30 Urine Glucose (UA) Negative Urine Ketones Negative Urine Blood Negative Urine Nitrate Negative Urine Bilirubin Negative Urine Urobilinogen < 2.0 H Urine Leukocytes Negative Urine RBC <1 Urine WBC <1 Ur Squamous Epith Cells Occasional Urine Mucus Occasional Ur Culture Indicated? Not indicated Digoxin - Diagnostic Findings Procedure: Chest x-ray: report reviewed by me - EKG EKG results: interpreted by me EKG shows: atrial fibrillation Quality Measures - VTE Contraindication to Pharmacological VTE Prophylaxis: Already on Theraputic Agent , No Prophylaxis Needed IRosanna Dale, MD, personally performed the services described in this documentation, ascribed by Caballero,Mayra, RN in my presence, and it is both accurate and complete .
[2017-05-04] MEDS: WARFARIN 5 MG TABLET PO SCH (20:32)
[2017-05-04] MEDS: MELATONIN 3 MG TABLET PO SCH (20:33)
[2017-05-04] MEDS: PRAVASTATIN 40 MG TABLET PO SCH (20:35)
[2017-05-05] MEDS: FUROSEMIDE 40 MG/4 ML VIAL IV SCH ×4 (00:29→18:08)
[2017-05-05] MEDS: VANCOMYCIN INJ 2,250 MG in SODIUM CHLORIDE 0.9% 500 ML IV SCH ×2 (00:29→13:34)
[2017-05-05 06:35] LABS: Basophils # 0.1 10*3/uL (0.0-0.2); Basophils % 1.3 % (0.0-0.8); Eosinophils # 0.4 10*3/uL (0.0-0.87); Hematocrit 43.8 VOL% (42.0-52.0); Hemoglobin 14.7 GM/DL (14.0-18.0); Immature Granulocytes % 0.8 %; Immature Granulocytes Absolute 0.08 #; Lymphocytes # 2.6 10*3/uL (1.4-4.0); Lymphocytes % 25.3 % (21.2-54.2); Mean Corpuscular HGB Conc 33.6 GM/DL (32-36); Mean Corpuscular Hemoglobin 28 PG (27-34); Mean Corpuscular Volume 82.2 FL (87-102); Mean Platelet Volume 10.6 FL (9.6-12.0); Monocytes # 0.7 10*3/uL (0.11-0.8); Monocytes % 7.1 % (1.7-12.7); Neutrophils # 6.2 10*3/uL (1.4-7.4); Neutrophils % 61.5 % (38.7-73.9); Platelet Count 202 T/CUMM (130-400); Red Blood Count 5.33 MC/CUMM (3.8-5.5); Red Cell Distribution Width 16.9 % (9.3-17.3); White Blood Count 10.1 T/CUMM (4-12)
[2017-05-05 06:55] LABS: INR 2.6
[2017-05-05 07:01] LABS: PT Patient Result 29.8 SECS
[2017-05-05 07:03] LABS: Calcium 8.1 MG/DL (8.5-10.1); Osmolality,Calculated 279.8 MOS/KG (273-304); Potassium 4.1 MMOL/L (3.5-5.1)
[2017-05-05 07:06] LABS: Bilirubin,Total 0.7 MG/DL (0.2-1.0); Calcium 8.2 MG/DL (8.5-10.1); Magnesium 1.5 MG/DL (1.8-2.4); Osmolality,Calculated 281.7 MOS/KG (273-304); Phosphorous 3.9 MG/DL (2.5-4.9); Potassium 4.2 MMOL/L (3.5-5.1); Total Protein 6.7 G/DL (6.4-8.3)
[2017-05-05] MEDS ORDERED: MAGNESIUM SULF RIDER 4 GM in PREMIX 1 EACH IV PRN (07:29)
[2017-05-05] MEDS: INSULIN LISPRO 100 UNIT/ML SUBCUT SCH ×4 (08:44→20:35)
[2017-05-05] MEDS: DIGOXIN 0.25 MG TABLET PO SCH (08:45)
[2017-05-05] MEDS: LISINOPRIL 20 MG TABLET PO SCH (08:46)
[2017-05-05] MEDS: sitaGLIPtin 25 MG TABLET PO SCH ×2 (08:46→20:34)
[2017-05-05] MEDS: ISOSORBIDE DINITRATE 20 MG TABLET PO SCH ×2 (08:46→20:34)
[2017-05-05] MEDS: DILTIAZEM CD 180 MG CAPSULE PO SCH (08:46)
[2017-05-05] MEDS: metFORMIN 500 MG TABLET PO SCH ×2 (08:47→20:34)
[2017-05-05] MEDS: METOPROLOL TARTRATE 100 MG TABLET PO SCH ×2 (08:47→17:05)
--- NOTE | 2017-05-05 09:00 | Hospitalist Progress Note ---
<Jackie Delucada - Last Filed: 05/05/17 08:58> Assessment and Plan (1) Chronic anticoagulation Status: Chronic Assessment and plan: The patient is chronically coagulated with warfarin. No INR ordered for this morning, we will order stat INR and adjust Coumadin accordingly. 05/05-INR noted at 2.5 on yesterday and 2.6 today. Pharmacy has been consulted to assist in the management of the patient's anticoagulation. We will recheck INR in a.m. Current Visit: Yes (2) Lower extremity edema Status: Acute Assessment and plan: The wounds to the bilateral lower extremities are chronic in nature. We will obtain a surgery consultation for recommendations for care. In addition, we will obtain wound culture and sent for analysis. 05/05-compression dressings applied to the bilateral lower extremities yesterday per surgery recommendation. We appreciate the input. We will continue compression dressings as ordered. Current Visit: Yes (3) Obstructive sleep apnea Status: Chronic Assessment and plan: Sleep medicine consultation has been requested. 05/05-patient was seen and evaluated by sleep medicine on yesterday. Sleep study was scheduled overnight. We will await sleep study results and proposed recommendations per sleep medicine. Current Visit: Yes (4) Skin ulcer of multiple sites of lower extremity, limited to breakdown of skin Status: Acute Assessment and plan: We will obtain wound culture and consult surgery for further evaluation. We will continue empiric antibiotic as previously ordered. 05/05-patient was seen and evaluated by surgery on yesterday. Bilateral compression dressings were applied. We will continue empiric antibiotic coverage and await culture sensitivity report. Current Visit: Yes (5) Hyperlipidemia Status: Chronic Assessment and plan: Lipid panel obtained at the time of admission reported gross elevations in the patient's cholesterol panel including triglycerides at 452, cholesterol 226, and HDL cholesterol at 30. The patient reported that he had previously been on a lipid-lowering agent however he had run out of his medication. We will start pravastatin 40 mg nightly. Current Visit: Yes Hospitalist: Subjective Interval history: Patient seen and examined; chart reviewed. No significant overnight events reported per staff. The patient was seen and evaluated by sleep medicine on yesterday. We will await sleep study results for further recommendations. Exam - Constitutional Vitals: Period Temp Pulse Resp BP Sys/Pierre Pulse Ox Last 24 Hr 96.2 F-97.4 F 70-94 18-24 107-138/58-89 84-97 General appearance: no acute distress, morbidly obese - Head Head exam: Present: normal inspection, normocephalic, atraumatic - Eye Eye exam: Present: EOMI. Absent: conjunctival injection Pupils: Present: NAT, normal accommodation - ENT ENT exam: Present: normal exam, normal external ear exam, normal oropharynx - Neck Neck exam: Present: normal inspection. Absent: lymphadenopathy, meningismus, tenderness, thyromegaly - Respiratory Respiratory exam: Present: clear to auscultation bilaterally. Absent: rales, rhonchi, stridor, wheezes - Cardiovascular Cardiovascular exam: Present: regular rate and rhythm. Absent: carotid bruit, diastolic murmur, gallop, JVD, rubs, systolic murmur - GI/Abdominal GI/Abdominal exam: Present: normal bowel sounds, soft - Extremities Exam Extremities exam: Present: normal inspection, edema (+2 edema noted to bilateral lower extreme), other (Compression dressings noted to bilateral lower extremities) - Back Exam Back exam: Present: normal inspection - Neurological Exam Neurological exam: Present: alert, oriented X3, CN II-XII intact - Psychiatric Psychiatric exam: Present: normal affect, normal mood - Skin Skin exam: Present: normal color, warm, dry Results - Labs CBC & BMP: 05/05/17 05:41 05/05/17 05:41 Lab Results: I have reviewed the past 24 hour labs Quality Measures - VTE Contraindication to Pharmacological VTE Prophylaxis: Already on Theraputic Agent , No Prophylaxis Needed <Jayden Smith - Last Filed: 05/05/17 09:30> Hospitalist: Subjective Interval history: Patient was seen in consultation yesterday by wound care and general surgery. He continues on empirical antibiotics with local care to the cellulitis. I will continue his present antibiotics and make appropriate changes as necessary when sensitivities become available. Exam - Constitutional Vitals: Period Temp Pulse Resp BP Sys/Pierre Pulse Ox Last 24 Hr 96.2 F-97.4 F 70-94 18-24 107-138/58-89 84-97 Results - Labs CBC & BMP: 05/05/17 05:41 05/05/17 05:41
--- NOTE | 2017-05-05 12:24 | Sleep Medicine Progress Note ---
Assessment and Plan (1) Obstructive sleep apnea Status: Chronic Assessment and plan: Patient does have severe sleep apnea with an apnea popping index of 58. We will initiateCPAP therapy tonight with auto titration from 5-20 cm and follow- up results. Current Visit: Yes (2) Hypertension Status: Chronic Current Visit: Yes (3) Diabetes Status: Chronic Current Visit: Yes (4) A-fib Status: Chronic Current Visit: Yes (5) Congestive heart failure Status: Acute Current Visit: Yes Sleep Medicine Subjective Interval history: Mr. Montelongo underwent home sleep testing last night while sitting in his bedside recliner. He had evidence of severe sleep apnea with an overall respiratory event index of 58. He had O2 desaturation to 74% and had an average O2 sat of 89%. He did have a component of central sleep apnea as well as what appear to be obstructive respiratory events. He most likely has a significant obstructive component to his sleep apnea. We will go ahead and initiate auto titration CPAP therapy tonight and follow up his response. I think he has potential for great benefit from therapy. Exam (Progress Note) - Constitutional Vitals: Period Temp Pulse Resp BP Sys/Pierre Pulse Ox Last 24 Hr 96.2 F-97.4 F 64-84 18-24 107-138/56-89 84-97 Exam: He is alert and responsive in no acute distress. Oropharynx with a class IV Mallampati exam. Neck is supple without adenopathy. Chest with good air movement and no focal wheeze or rhonchi. Cardiac exam reveals a regular rhythm without murmur or gallop. Abdomen obese nontender extremities with clean dry dressings on his lower extremities. Neurologically, he is grossly intact. Results - Labs CBC & BMP: 05/05/17 05:41 05/05/17 05:41 Lab Results: I have reviewed the past 24 hour labs
[2017-05-05] MEDS: oxyCODONE/ACETAMINOPHEN 5-325 MG TABLET PO PRN ×2 (12:30→20:34)
--- NOTE | 2017-05-05 17:59 | ECHO Report ---
Andrew Montelongo 05/05/2017 Exam Date: 08:49 Referring Physician: Christine Torrez Technologist: CEDRIC Age: 57 Ht (in): 71 Wt (lb): 333 MExam Location: [facility] [place] Gender: Echo [id number]: A fib, HTN, hyperlipidemia, chronicIndications:anticoagulation, DM, JOSE A, lower ext. edema BP: 11 / 67 HR: 79 SinusRhythm: Technically difficult studyTechnical Quality: IMPRESSIONS Mildly increased left ventricular cavity size. Mild concentric left ventricular hypertrophy with diastolic dysfunction. Left ventricular ejection fraction is estimated at > 55 %. Mildly increased right ventricular size. The right atrium is mildly enlarged. The left atrium is mildly enlarged. Mildly thickened mitral valve with mild mitral regurgitation. Trace tricuspid valve regurgitation. Tricuspid regurgitation velocities suggest a PAP of 16.6 mmHg + RAP. MEASUREMENTS (Male / Female) Normal Values 2D ECHO LV Diastolic Diameter PLAX 5.4 cm 4.2 - 5.9 / 3.9 - 5.3 cm LV Systolic Diameter PLAX 3.9 cm IVS Diastolic Thickness 1.4 cm 0.6 - 1.0 / 0.6 - 0.9 cm LVPW Diastolic Thickness 1.2 cm 0.6 - 1.0 / 0.6 - 0.9 cm RV Internal Dim ED PLAX 3.0 cm Aortic Root Diameter 3.3 cm LA Systolic Diameter LX 4.5 cm 3.0 - 4.0 / 2.7 - 3.8 cm DOPPLER TR Peak Velocity 204.0 cm/s TR Peak Gradient 16.6 mmHg FINDINGS Left Ventricle Mildly increased left ventricular cavity size. Mild concentric left ventricular hypertrophy with diastolic dysfunction. Left ventricular ejection fraction is estimated at > 55 %. Right Ventricle Mildly increased right ventricular size. Right Atrium The right atrium is mildly enlarged. Left Atrium The left atrium is mildly enlarged. Mitral Valve Mildly thickened mitral valve with mild mitral regurgitation. Aortic Valve The aortic valve is trileaflet and has normal motion. Tricuspid Valve Morphologically normal tricuspid valve. Trace tricuspid valve regurgitation. Tricuspid regurgitation velocities suggest a PAP of 16.6 mmHg + RAP. Pulmonic Valve Pulmonic valve not well visualized. Pericardium No pericardial effusion. Aorta Normal size aortic root and proximal ascending aorta. Joshua Marte MD (Electronically Signed) 05 May 2017 Final Date: 17:58
--- NOTE | 2017-05-05 19:52 | Cardiology Progress Note ---
I, Mayra Caballero RN, am scribing for, and in the presence of, Joshua Marte MD 19:52. Assessment and Plan (1) A-fib Status: Chronic Assessment and plan: Initial assessment and plan May 04, 2017: Patient's A. fib rate is controlled His lower extremity edema and redness and weeping to me seems more consistent with venous disease of the legs and cellulitis. Differential diagnosis would include right heart failure, left heart failure, some intra-abdominal abnormality, low albumin, hypothyroidism. My plan/recommendation: Check echo/Doppler Consult Dr. Cronin regarding sleep apnea Sleep propped up if cannot afford the CPAP Continue Coumadin to help prevent blood clots Check BNP Check albumin Check TSH if not done Elevate legs above the level of heart 10 minutes twice a day, if can Agree with Lasix Prognosis is guarded if he is unable to use CPAP, lose some weight, and get more active. However, I do not think any of these will happen. Assessment and plan May 05, 2017: Edema continues A surgeon and started wraps of his legs His echo today revealed good LVEF and not much pulmonary hypertension It was suggest that the edema of his legs is not due to right heart failure, left heart failure but most likely due to his untreated obstructive sleep apnea , his obesity, venous insufficiency of the legs, and low albumin. We will try to "fix what we can fix" Continue diuresis Agree with CPAP Elevate legs Prognosis remains guarded. Current Visit: Yes (2) Chronic anticoagulation Status: Chronic Current Visit: Yes (3) Diabetes Status: Chronic Current Visit: Yes (4) Hyperlipidemia Status: Chronic Current Visit: Yes (5) Hypertension Status: Chronic Current Visit: Yes (6) Lower extremity edema Status: Acute Current Visit: Yes (7) Nicotine addiction Status: Chronic Current Visit: Yes (8) Obstructive sleep apnea Status: Chronic Current Visit: Yes (9) Skin ulcer of multiple sites of lower extremity, limited to breakdown of skin Status: Acute Current Visit: Yes Cardiology - PN: Subj Interval history: Cash Posting Representative: Dr. Steven at [place] Summary: Mr. Montelongo is a 57 year old male with a history of CAD, A. fib, hypertension, peripheral neuropathy, IDDM, COPD, and JOSE A. He reports he was diagnosed with sleep apnea several years ago but never got a CPAP machine because he cannot afford it. He is anticoagulated on warfarin for his atrial fibrillation. He reports having heart cath with stents in [place] several years ago. He told the admitting physician he had been admitted to [facility] and [facility] within the past year where he had heart cath with stents. He did not mention this to me. He has also had hernia repair and removal of salivary glands. He was orphaned as a child and does not know his family history, he only knows his grandmother was diabetic and heart disease. He is a current everyday smoker, was smoking 2 packs a day, he is down to 2 cigars a day now. He presented to the emergency department [facility] May 03 because of a one half month history of progressive bilateral lower extremity edema, redness, and pain. He was treated [facility] with antibiotics and was recently released. After discharge from [facility], the edema and redness worsened and he developed blisters that have now burst. He reports having chest pain sometimes at night that he describes as an ache on the right side of his chest. He has shortness of breath at rest, dyspnea on exertion, and orthopnea. He said these are not necessarily associated with the chest pain. Troponin was negative 1. He has been started on Lasix 40 mg IV every 6 hours. Chest x-ray showed vague central interstitial opacities. May 05, 2017: Mr. Montelongo was seen this morning sitting up in chair. His bilateral lower extremities have been dressed. He denies any chest pain or shortness of breath at this time. Vital signs were stable throughout the night. monitoring manager currently shows atrial fibrillation with heart rates in the 70s. INR this morning is 2.6. Potassium was replaced yesterday, this morning it is 4.1. His magnesium is low at 1.5, this is being replaced intravenously. Preliminary culture from his right leg grew out gram-negative rods and gram-positive cocci. He is on IV vancomycin. He had sleep study evaluation done last night, we will await these results. An echocardiogram has been ordered, this will be reviewed after completed. Exam (Progress Note) - Constitutional Vitals: Period Temp Pulse Resp BP Sys/Pierre Pulse Ox Last 24 Hr 96.2 F-97.4 F 70-94 18-24 107-138/58-89 84-97 Exam: General: Present: Appears Well, No Apparent Distress HEENT: Present: PERRL, Mucus Membranes Moist Neck: Present: Supple Neck, Midline Trachea, No Bruit Cardiac: Present: Irregularly Regular, No Murmur Lungs: Present: Normal Breath Sounds, No Wheeze, Rales, Rhonchi Neuro: Absent: Resting Tremor, Essential Tremor Abdomen: Present: Soft, Active Bowel Sounds, Non-Tender. Absent: Distended Skin: Present: Warm, dry Musculoskeletal: Present: Decreased Range of Motion, Pain in Joint Gait: Present: Poor Gait Extremities: Present: Normal Upper Extr. Pulses, unable to assess lower extremities due to dressings Result/EKG - Labs CBC & BMP: 05/05/17 05:41 05/05/17 05:41 Lab Results: I have reviewed the past 24 hour labs Labs: Laboratory Results - last 24 hr 05/04/17 05/04/17 05/04/17 11:08 15:18 20:10 WBC RBC Hgb Hct MCV MCH MCHC RDW Plt Count MPV Neut % (Auto) Lymph % (Auto) Owen % (Auto) Eos % (Auto) Baso % (Auto) Neut # (Auto) Lymph # (Auto) Owen # (Auto) Eos # (Auto) Baso # (Auto) Immature Gran % Nucleated RBC % Immature Gran # Nucleated RBCs # Immature Plt Fraction INR PT Patient/Control Mix Sodium Potassium Chloride Carbon Dioxide Anion Gap BUN Creatinine GFR Calculation BUN/Creatinine Ratio Glucose POC Glucose 206 H 173 H 195 H Calculated Osmolality Calcium Phosphorus Magnesium Total Bilirubin AST ALT Alkaline Phosphatase Total Protein Albumin Globulin Albumin/Globulin Ratio Digoxin 05/05/17 05/05/17 05/05/17 05:41 05:41 05:41 WBC 10.1 RBC 5.33 Hgb 14.7 Hct 43.8 MCV 82.2 L MCH 28 MCHC 33.6 RDW 16.9 Plt Count 202 MPV 10.6 Neut % (Auto) 61.5 Lymph % (Auto) 25.3 Owen % (Auto) 7.1 Eos % (Auto) 4.0 Baso % (Auto) 1.3 H Neut # (Auto) 6.2 Lymph # (Auto) 2.6 Owen # (Auto) 0.7 Eos # (Auto) 0.4 Baso # (Auto) 0.1 Immature Gran % 0.8 Nucleated RBC % 0.0 Immature Gran # 0.08 Nucleated RBCs # 0.00 Immature Plt Fraction 0.0 INR 2.6 PT Patient/Control Mix 29.8 Sodium Potassium Chloride Carbon Dioxide Anion Gap BUN Creatinine GFR Calculation BUN/Creatinine Ratio Glucose POC Glucose Calculated Osmolality Calcium Phosphorus Magnesium Total Bilirubin AST ALT Alkaline Phosphatase Total Protein Albumin Globulin Albumin/Globulin Ratio Digoxin 0.90 05/05/17 05/05/17 05/05/17 05:41 05:41 07:06 WBC RBC Hgb Hct MCV MCH MCHC RDW Plt Count MPV Neut % (Auto) Lymph % (Auto) Owen % (Auto) Eos % (Auto) Baso % (Auto) Neut # (Auto) Lymph # (Auto) Owen # (Auto) Eos # (Auto) Baso # (Auto) Immature Gran % Nucleated RBC % Immature Gran # Nucleated RBCs # Immature Plt Fraction INR PT Patient/Control Mix Sodium 138 137 Potassium 4.2 4.1 Chloride 100 100 Carbon Dioxide 32 32 Anion Gap 10.2 9.1 BUN 21 H 21 H Creatinine 1.10 1.20 GFR Calculation 112 101 BUN/Creatinine Ratio 19.00 17.00 Glucose 177 H 174 H POC Glucose 170 H Calculated Osmolality 281.7 279.8 Calcium 8.2 L 8.1 L Phosphorus 3.9 Magnesium 1.5 L Total Bilirubin 0.70 AST 10 ALT 18 Alkaline Phosphatase 77 Total Protein 6.7 Albumin 3.0 L Globulin 3.7 H Albumin/Globulin Ratio 0.8 L Digoxin - Diagnostic Findings Procedure: Chest x-ray: report reviewed by me - EKG EKG results: interpreted by me EKG shows: atrial fibrillation Quality Measures - VTE Contraindication to Pharmacological VTE Prophylaxis: Already on Theraputic Agent , No Prophylaxis Needed IRosanna Dale, MD, personally performed the services described in this documentation, ascribed by Mayra Caballero RN in my presence, and it is both accurate and complete [id number] .
[2017-05-05] MEDS: MELATONIN 3 MG TABLET PO SCH (20:34)
[2017-05-05] MEDS: PRAVASTATIN 40 MG TABLET PO SCH (20:34)
[2017-05-05] MEDS: WARFARIN 5 MG TABLET PO SCH (20:35)
[2017-05-06] MEDS: oxyCODONE/ACETAMINOPHEN 5-325 MG TABLET PO PRN ×4 (00:21→20:42)
[2017-05-06] MEDS: VANCOMYCIN INJ 2,250 MG in SODIUM CHLORIDE 0.9% 500 ML IV SCH ×2 (00:22→11:33)
[2017-05-06] MEDS: FUROSEMIDE 40 MG/4 ML VIAL IV SCH ×4 (00:22→18:20)
[2017-05-06] MEDS: ACETAMINOPHEN 325 MG TABLET PO PRN ×2 (03:15→22:59)
[2017-05-06 07:07] LABS: Basophils # 0.1 10*3/uL (0.0-0.2); Basophils % 1.1 % (0.0-0.8); Eosinophils # 0.4 10*3/uL (0.0-0.87); Eosinophils % 3.6 % (0.00-10.9); Hematocrit 42.8 VOL% (42.0-52.0); Hemoglobin 14.1 GM/DL (14.0-18.0); Immature Granulocytes % 0.7 %; Immature Granulocytes Absolute 0.07 #; Lymphocytes # 2.9 10*3/uL (1.4-4.0); Lymphocytes % 28.3 % (21.2-54.2); Mean Corpuscular HGB Conc 32.9 GM/DL (32-36); Mean Corpuscular Hemoglobin 28 PG (27-34); Mean Corpuscular Volume 83.4 FL (87-102); Monocytes # 0.8 10*3/uL (0.11-0.8); Monocytes % 7.4 % (1.7-12.7); Neutrophils % 58.9 % (38.7-73.9); Platelet Count 220 T/CUMM (130-400); Red Blood Count 5.13 MC/CUMM (3.8-5.5); Red Cell Distribution Width 16.9 % (9.3-17.3); White Blood Count 10.2 T/CUMM (4-12)
[2017-05-06 08:52] LABS: Calcium 8.4 MG/DL (8.5-10.1); Osmolality,Calculated 280.8 MOS/KG (273-304); Potassium 4.6 MMOL/L (3.5-5.1)
[2017-05-06 09:07] LABS: Albumin 3.1 G/DL (3.4-5.0); Bilirubin,Total 0.4 MG/DL (0.2-1.0); Calcium 8.3 MG/DL (8.5-10.1); Magnesium 1.9 MG/DL (1.8-2.4); Osmolality,Calculated 283.7 MOS/KG (273-304); Phosphorous 3.8 MG/DL (2.5-4.9); Potassium 4.6 MMOL/L (3.5-5.1); Total Protein 6.8 G/DL (6.4-8.3)
[2017-05-06] MEDS: INSULIN LISPRO 100 UNIT/ML SUBCUT SCH ×4 (09:22→21:21)
[2017-05-06] MEDS: METOPROLOL TARTRATE 100 MG TABLET PO SCH ×2 (09:23→17:36)
[2017-05-06] MEDS: DILTIAZEM CD 180 MG CAPSULE PO SCH (09:23)
[2017-05-06] MEDS: metFORMIN 500 MG TABLET PO SCH ×2 (09:25→20:43)
[2017-05-06] MEDS: ISOSORBIDE DINITRATE 20 MG TABLET PO SCH ×2 (09:25→20:43)
[2017-05-06] MEDS: DIGOXIN 0.25 MG TABLET PO SCH (09:26)
[2017-05-06] MEDS: sitaGLIPtin 25 MG TABLET PO SCH ×2 (09:26→20:42)
[2017-05-06] MEDS: LISINOPRIL 20 MG TABLET PO SCH (09:27)
--- NOTE | 2017-05-06 09:35 | Hospitalist Progress Note ---
<Raymond Deluca - Last Filed: 05/06/17 09:27> Assessment and Plan (1) Chronic anticoagulation Status: Chronic Assessment and plan: The patient is chronically coagulated with warfarin. No INR ordered for this morning, we will order stat INR and adjust Coumadin accordingly. 05/05-INR noted at 2.5 on yesterday and 2.6 today. Pharmacy has been consulted to assist in the management of the patient's anticoagulation. We will recheck INR in a.m. 05/06-INR not available. We will order stat INR. Pharmacy to manage Coumadin. Current Visit: Yes (2) Lower extremity edema Status: Acute Assessment and plan: The wounds to the bilateral lower extremities are chronic in nature. We will obtain a surgery consultation for recommendations for care. In addition, we will obtain wound culture and sent for analysis. 05/05-compression dressings applied to the bilateral lower extremities yesterday per surgery recommendation. We appreciate the input. We will continue compression dressings as ordered. 05/06-continue compression dressings to bilateral lower extremities per surgery recommendation. Current Visit: Yes (3) Obstructive sleep apnea Status: Chronic Assessment and plan: Sleep medicine consultation has been requested. 05/05-patient was seen and evaluated by sleep medicine on yesterday. Sleep study was scheduled overnight. We will await sleep study results and proposed recommendations per sleep medicine. Current Visit: Yes (4) Skin ulcer of multiple sites of lower extremity, limited to breakdown of skin Status: Acute Assessment and plan: We will obtain wound culture and consult surgery for further evaluation. We will continue empiric antibiotic as previously ordered. 05/05-patient was seen and evaluated by surgery on yesterday. Bilateral compression dressings were applied. We will continue empiric antibiotic coverage and await culture sensitivity report. 05/06-culture sensitivity report significant for gram-negative rods and gram- positive cocci. We will consult infectious disease to evaluate and assist in the management of the patient's antibiotic regimen. Current Visit: Yes (5) Hyperlipidemia Status: Chronic Assessment and plan: Lipid panel obtained at the time of admission reported gross elevations in the patient's cholesterol panel including triglycerides at 452, cholesterol 226, and HDL cholesterol at 30. The patient reported that he had previously been on a lipid-lowering agent however he had run out of his medication. We will start pravastatin 40 mg nightly. Current Visit: Yes Hospitalist: Subjective Interval history: Patient seen and examined; chart reviewed. No significant overnight events reported. Sleep study was significant for apnea popping index at 58. In addition, wound cultures were significant for the presence of gram-negative rods and gram-positive cocci. We will consult infectious disease today to assist in antibiotic management. Exam - Constitutional Vitals: Period Temp Pulse Resp BP Sys/Pierre Pulse Ox Last 24 Hr 97 F-98.8 F 57-78 20-24 96-125/56-77 92-99 General appearance: no acute distress, over weight - Head Head exam: Present: normal inspection, normocephalic, atraumatic - Eye Eye exam: Present: EOMI. Absent: conjunctival injection Pupils: Present: NAT, normal accommodation - ENT ENT exam: Present: normal exam, normal external ear exam, normal oropharynx - Neck Neck exam: Present: normal inspection. Absent: lymphadenopathy, meningismus, tenderness, thyromegaly - Respiratory Respiratory exam: Present: clear to auscultation bilaterally. Absent: rales, rhonchi, stridor, wheezes - Cardiovascular Cardiovascular exam: Present: regular rate and rhythm. Absent: carotid bruit, diastolic murmur, gallop, JVD, rubs, systolic murmur - GI/Abdominal GI/Abdominal exam: Present: normal bowel sounds, soft - Extremities Exam Extremities exam: Present: normal inspection, normal capillary refill, full ROM , edema (+2 edema noted to bilateral lower extremities; compression dressings intact.) - Back Exam Back exam: Present: normal inspection - Neurological Exam Neurological exam: Present: alert, oriented X3, CN II-XII intact - Psychiatric Psychiatric exam: Present: normal affect - Skin Skin exam: Present: normal color, warm, dry Results - Labs CBC & BMP: 05/06/17 05:43 05/06/17 05:43 Lab Results: I have reviewed the past 24 hour labs Quality Measures - VTE Contraindication to Pharmacological VTE Prophylaxis: Already on Theraputic Agent , No Prophylaxis Needed <Jayden Smith - Last Filed: 05/06/17 09:49> Hospitalist: Subjective Interval history: Patient appears stable today. Sleep apnea study demonstrated evidence of severe sleep apnea for which he is being treated with CPAP. He is presently on intravenous antibiotics and receiving wound care to his lower extremities. I am attempting to make arrangements for outpatient wound care, home intravenous antibiotics, and a CPAP machine on discharge. As soon as these arrangements have been finalized, he will be discharged. Exam - Constitutional Vitals: Period Temp Pulse Resp BP Sys/Pierre Pulse Ox Last 24 Hr 97 F-98.8 F 57-78 20-24 96-125/56-77 92-99 Results - Labs CBC & BMP: 05/06/17 05:43 05/06/17 05:43
--- NOTE | 2017-05-06 10:00 | General Surgery Progress Note ---
Assessment and Plan (1) Cellulitis Status: Acute Assessment and plan: The patient appears to have bilateral lower extremity cellulitis in the setting of chronic stasis dermatitis secondary to chronic edema of his lower extremities. It does not appear to involve an underlying abscess. This needs to be treated with antibiotics and compression therapy to hopefully limit the edema of his lower legs to allow the cellulitis to clear. This can be difficult to clear up because of the chronic changes of the skin and soft tissues of his lower leg. We can try culturing some of the fluid from the knee the bulla which appear to be limited to the epidermis. 05/06: Overall I think he has a little bit less edema and erythema. I debrided away the bullous areas that he had before and this is really unchanged. There was not purulent material and the bulla. His cultures are growing multiple organisms. I do not see evidence of abscess to drain. I will get an opinion from Dr. Chavez from wound care to see if he has any other ideas managing this for the long-term. This is going to be a challenge to prevent infections in the future. A lot of his skin change appears to be chronic and not acute. Current Visit: Yes Qualifiers: Site of cellulitis of extremity: lower extremity Laterality: unspecified laterality Subjective Patient reports: Present: feels better, pain is less. Absent: fever Exam - Constitutional Vitals: Period Temp Pulse Resp BP Sys/Pierre Pulse Ox Last 24 Hr 97 F-98.8 F 57-78 20-24 96-125/56-77 92-99 General appearance: no acute distress, morbidly obese - Respiratory Respiratory exam: Absent: accessory muscle use - Extremities Exam Extremities exam: Present: edema, other (Decreased erythema). Absent: calf tenderness Results - Labs CBC & BMP: 05/06/17 05:43 05/06/17 05:43 Lab Results: I have reviewed the past 24 hour labs Quality Measures - VTE Contraindication to Pharmacological VTE Prophylaxis: Already on Theraputic Agent , No Prophylaxis Needed
[2017-05-06 10:46] LABS: PT Patient Result 34.1 SECS
--- NOTE | 2017-05-06 12:22 | Infectious Disease Consult ---
Assessment and Plan (1) Cellulitis Status: Acute Assessment and plan: Cellulitis to both lower extremities which is a result of skin breaks from chronic severe edema. He has shallow ulcerations on both legs. Recommendations: 1. Given the worsening renal function since admission I am going to discontinue vancomycin and instead given linezolid 600 mg p.o. twice a day 2. Add Zosyn for the gram-negative, in case of a resistant organism since the patient has been in and out of hospital 3. Blood cultures for completeness sake 4. Follow cultures and adjust antibiotics accordingly Thank you very much for the consult. Will follow. Current Visit: Yes Qualifiers: Site of cellulitis of extremity: lower extremity Laterality: unspecified laterality (2) Congestive heart failure Status: Acute Current Visit: Yes (3) A-fib Status: Chronic Current Visit: Yes (4) Diabetes Status: Chronic Current Visit: Yes (5) Hyperlipidemia Status: Chronic Current Visit: Yes (6) Hypertension Status: Chronic Current Visit: Yes (7) Obstructive sleep apnea Status: Chronic Current Visit: Yes (8) Acute renal insufficiency Status: Acute Assessment and plan: Because probably multifactorial including diuresis and vancomycin. I am stopping the vancomycin. Continue to monitor and adjust antibiotics further if necessary. Current Visit: Yes History of Present Illness Chief complaint: Bilateral lower extremity cellulitis History of present illness: Mr. Montelongo is a 57 year old male who is morbidly obese and has multiple comorbidities including CHF with chronic edema both legs. He says he has had worsening edema for the past month with increasing redness and pain in the legs. When the pain became unbearable he decided to come to the hospital for medical attention. He said this is the first time he is having cellulitis this year, he had 2 episodes of cellulitis last year. He has been in and out of hospital this year because of competitions related to the CHF. He also has sleep apnea. On admission he was noted to have significant redness of the leg some draining wounds. Culture positive for 2 different organisms. I am asked to assist with antibiotic management. Home Medications Medication Instructions Recorded Confirmed Type Digoxin Tab [Lanoxin Tab] 0.25 mg PO QAM 05/03/17 05/03/17 History Furosemide Tab [Lasix Tab] 40 mg PO BID DIURETIC 05/03/17 05/03/17 History Isosorbide Dinitrate 40 mg PO BID 05/03/17 05/03/17 History Lisinopril 40 mg PO DAILY 05/03/17 05/03/17 History Melatonin 10 mg PO BEDTIME 05/03/17 05/03/17 History Metoprolol Tartrate 100 mg PO BID W/MEALS 05/03/17 05/03/17 History Sitagliptin Phos/Metformin HCl 1 each PO BID 05/03/17 05/03/17 History [Janumet 50-1,000 mg Tablet] Warfarin [Coumadin] 5 mg PO BEDTIME 05/03/17 05/03/17 History dilTIAZem HCl [Diltiazem ER (24 360 mg PO DAILY 05/03/17 05/03/17 History hr)] Allergies Allergy/AdvReac Type Severity Reaction Status Date / Time No Known Allergies Allergy Verified 05/03/17 15:26 12 point system: reviewed and no additional remarkable complaints except as stated (Per HPI) Medical,Surgical,& Family Hx - Medical History Cardio: History of: Cardiac Dysrhythmia (a-fib), CHF, CAD, Hypertension Neurology: History of: Peripheral Neuropathy Endocrine: History of: Diabetes Mellitus (IDDM), Dyslipidemia Respiratory: History of: Asthma, COPD - Surgical History Cardiac Surgeries: Sugical HX of: Cardiac Catheterization Abdominal Surgeries: Surgical HX of: Hernia Repair - Family History Family History: Reports;: Family Diabetes (Grandmother), Family Heart Disease ( Grandmother) - Social History Smoking Status: Current every day smoker Frequency of Alcohol Use: None Type of Drug Use: None Infectious Disease Exam H&P - Constitutional Vitals: Vital Signs Temp Pulse Resp BP Pulse Ox 97.6 F 73 18 124/71 93 L 05/06/17 12:00 05/06/17 12:00 05/06/17 12:00 05/06/17 12:00 05/06/17 12:00 Intake and Output 05/05/17 05/06/17 05/06/17 23:59 07:59 15:59 Intake Total 500 / 500 500 / 500 Balance 500 / 500 500 / 500 Intake: IV 500 / 500 500 / 500 Vancomycin Inj 1,000 mg 500 / 500 500 / 500 In Ns 500 ml @ 250 mls/hr IV Q12H DARIUSZ Rx#: [id number] Other: Voiding Method Toilet Toilet # Voids 3 3 # Bowel Movements 1 Weight 152.77 kg Patient Weight 09/08/17 23:59 Weight 152.77 kg Exam: General: Patient relatively comfortable sitting in chair HEENT: Mucous membranes pink and moist, anicteric acyanotic, NAT, no oral exudates Neck: Supple, no thyroid gland enlargement Respiratory system: Breath sounds vesicular, no crepitations or wheezes Cardiovascular: Normal S1 and S2, no murmurs appreciated Abdomen: Normal bowel sounds, soft nontender throughout, no organomegaly or mass Genitourinary: No CVA tenderness Extremities: Severe pitting edema both legs, blistering and weeping of the skin , shallow ulceration to the lateral aspect of right leg distally with sloughing material, there is significant edema both legs extending to the feet with hyperemia Skin: No rash Reports - Labs CBC & BMP: 05/06/17 05:43 05/06/17 05:43 Labs: Laboratory Results - last 24 hr 05/05/17 05/05/17 05/06/17 15:33 20:12 05:43 WBC RBC Hgb Hct MCV MCH MCHC RDW Plt Count MPV Neut % (Auto) Lymph % (Auto) [place] % (Auto) Eos % (Auto) Baso % (Auto) Neut # (Auto) Lymph # (Auto) [place] # (Auto) Eos # (Auto) Baso # (Auto) Immature Gran % Nucleated RBC % Immature Gran # Nucleated RBCs # Immature Plt Fraction INR PT Patient/Control Mix Sodium 137 Potassium 4.6 Chloride 100 Carbon Dioxide 30 Anion Gap 11.6 BUN 25 H Creatinine 1.30 GFR Calculation 92 BUN/Creatinine Ratio 19.00 Glucose 171 H POC Glucose 160 H 211 H Calculated Osmolality 280.8 Calcium 8.4 L Phosphorus Magnesium 2.0 Total Bilirubin AST ALT Alkaline Phosphatase Total Protein Albumin Globulin Albumin/Globulin Ratio 05/06/17 05/06/17 05/06/17 05:43 05:43 07:17 WBC 10.2 RBC 5.13 Hgb 14.1 Hct 42.8 MCV 83.4 L MCH 28 MCHC 32.9 RDW 16.9 Plt Count 220 MPV 11.0 Neut % (Auto) 58.9 Lymph % (Auto) 28.3 [place] % (Auto) 7.4 Eos % (Auto) 3.6 Baso % (Auto) 1.1 H Neut # (Auto) 6.0 Lymph # (Auto) 2.9 [place] # (Auto) 0.8 Eos # (Auto) 0.4 Baso # (Auto) 0.1 Immature Gran % 0.7 Nucleated RBC % 0.0 Immature Gran # 0.07 Nucleated RBCs # 0.00 Immature Plt Fraction 0.0 INR PT Patient/Control Mix Sodium 138 Potassium 4.6 Chloride 100 Carbon Dioxide 33 H Anion Gap 9.6 BUN 26 H Creatinine 1.40 H GFR Calculation 84 BUN/Creatinine Ratio 18.00 Glucose 168 H POC Glucose 170 H Calculated Osmolality 283.7 Calcium 8.3 L Phosphorus 3.8 Magnesium 1.9 Total Bilirubin 0.40 AST 10 ALT 20 Alkaline Phosphatase 84 Total Protein 6.8 Albumin 3.1 L Globulin 3.7 H Albumin/Globulin Ratio 0.8 L 05/06/17 05/06/17 10:12 11:33 WBC RBC Hgb Hct MCV MCH MCHC RDW Plt Count MPV Neut % (Auto) Lymph % (Auto) [place] % (Auto) Eos % (Auto) Baso % (Auto) Neut # (Auto) Lymph # (Auto) [place] # (Auto) Eos # (Auto) Baso # (Auto) Immature Gran % Nucleated RBC % Immature Gran # Nucleated RBCs # Immature Plt Fraction INR 3.0 PT Patient/Control Mix 34.1 Sodium Potassium Chloride Carbon Dioxide Anion Gap BUN Creatinine GFR Calculation BUN/Creatinine Ratio Glucose POC Glucose 238 H Calculated Osmolality Calcium Phosphorus Magnesium Total Bilirubin AST ALT Alkaline Phosphatase Total Protein Albumin Globulin Albumin/Globulin Ratio - Reports Microbiology: Microbiology 05/05/17 15:00 Wound Culture - Preliminary Leg - Left Lower Gram Negative Rods Gram Positive Cocci 05/04/17 09:45 Abscess Culture - Preliminary Leg - Right Gram Negative Rods Gram Positive Cocci
--- NOTE | 2017-05-06 12:34 | General Surgery Consult Note ---
Assessment and Plan - Time spent with patient Time spent with patient: Greater than 30 minutes (1) Cellulitis Status: Acute Assessment and plan: Impression: Cellulitis of both lower extremities right greater than left secondary to chronic his edema and blistering. Plan: We will continue present antibiotics at this point time as well as local wound care Current Visit: Yes Qualifiers: Site of cellulitis of extremity: lower extremity Laterality: unspecified laterality (2) Chronic venous insufficiency Status: Acute Assessment and plan: Impression: Chronic venous stasis insufficiency with ulceration and blistering and cellulitis Plan: Good wound care with compressive therapy. Current Visit: Yes (3) Obesity Status: Acute Assessment and plan: Impression: Obesity complicating his present cardiopulmonary and leg problems Current Visit: Yes Qualifiers: Obesity type: due to excess calories Obesity classification: adult class 3 (BMI >= 40) (4) Obstructive sleep apnea Status: Chronic Assessment and plan: Impression: Obstructive pulmonary disease Plan: Try to improve the general pulmonary function as this and his obesity is causing him to set up a great deal with the legs hanging down aggravating the presents stasis disease of his lower extremities. Have spoken to him encouraged him the importance of keeping it up at this time. Current Visit: Yes (5) Diabetes Status: Chronic Assessment and plan: Impression: Diabetes adult onset Plan medical management Current Visit: Yes (6) Congestive heart failure Status: Acute Assessment and plan: Impression: History of congestive heart failure. Plan: Medical management Current Visit: Yes History of Present Illness Chief complaint: Cellulitis with blistering and ulceration in both lower extremities. History of present illness: Mr. Montelongo is a 57 year old male white obese who has been admitted for cellulitis of the lower extremities. He has had significant swelling and erythematous changes of both lower extremities with chronic venous stasis changes and dermatitis associated with it. Patient has chronic obstructive pulmonary disease and he does sit up a lot with the legs hanging down creating a lot of problems with edematous changes present. These blisters and ulcerations are present on the dorsum of each leg at this time. There is an ulcer on the dorsum of the right leg laterally that had some fluid underneath it that opened up and cultured at this time. We were asked to see him see if we can add and improve his status at this point. We did see him he was sitting up the legs hanging down and a dressing was not very firm more secure at this point. Will try to modify his wound care and his activities and get him some physical therapy and try to get him into some fair wraps and attempt to give him some long-term chronic improvement. Home Medications Medication Instructions Recorded Confirmed Type Digoxin Tab [Lanoxin Tab] 0.25 mg PO QAM 05/03/17 05/03/17 History Furosemide Tab [Lasix Tab] 40 mg PO BID DIURETIC 05/03/17 05/03/17 History Isosorbide Dinitrate 40 mg PO BID 05/03/17 05/03/17 History Lisinopril 40 mg PO DAILY 05/03/17 05/03/17 History Melatonin 10 mg PO BEDTIME 05/03/17 05/03/17 History Metoprolol Tartrate 100 mg PO BID W/MEALS 05/03/17 05/03/17 History Sitagliptin Phos/Metformin HCl 1 each PO BID 05/03/17 05/03/17 History [Janumet 50-1,000 mg Tablet] Warfarin [Coumadin] 5 mg PO BEDTIME 05/03/17 05/03/17 History dilTIAZem HCl [Diltiazem ER (24 360 mg PO DAILY 05/03/17 05/03/17 History hr)] Allergies Allergy/AdvReac Type Severity Reaction Status Date / Time No Known Allergies Allergy Verified 05/03/17 15:26 Medical,Surgical,& Family Hx - Medical History Cardio: History of: Cardiac Dysrhythmia (a-fib), CHF, CAD, Hypertension Neurology: History of: Peripheral Neuropathy Endocrine: History of: Diabetes Mellitus (IDDM), Dyslipidemia Respiratory: History of: Asthma, COPD - Surgical History Cardiac Surgeries: Sugical HX of: Cardiac Catheterization Abdominal Surgeries: Surgical HX of: Hernia Repair - Family History Family History: Reports;: Family Diabetes (Grandmother), Family Heart Disease ( Grandmother) - Social History Smoking Status: Current every day smoker Frequency of Alcohol Use: None Type of Drug Use: None 12 point system: reviewed and no additional remarkable complaints except as stated Exam - Constitutional Vitals: Period Temp Pulse Resp BP Sys/Pierre Pulse Ox Last 24 Hr 97 F-98.8 F 57-78 18-24 96-125/59-77 93-99 General appearance: mild distress - Head Head exam: Present: normal inspection - ENT ENT exam: Present: normal exam - Neck Neck exam: Present: normal inspection - Respiratory Respiratory exam: Present: rales, rhonchi - Cardiovascular Cardiovascular exam: Present: RRR - GI/Abdominal GI/Abdominal exam: Present: hypoactive bowel sounds, soft, other (There are rotund and obese with large panniculus). Absent: tenderness - Extremities Exam Extremities exam: Present: edema (Extensive 4+ pitting edema both lower extremities with blister), other (There is erythematous changes on the two thirds of the dorsum of both legs at this time with continued swelling of the ankles and the feet. There is an ulcer on the dorsum of the left leg that is going to be 4 cm x 3.5 cm with us know the one on the medial aspect of the leg the skin to be 2 x 2.5 cm in size. The right leg has ulcers on the lateral aspect of the leg on the upper part it is difficult to measure because is still some loose skin there and some drainage but seems to be about 2 x 1.5 cm in size. There is another ulcer on the dorsum of the pretibial area on the right skin are measured 2 x 3 cm in size. They are fairly superficial with granulating base is present at this time.) - Back Exam Back exam: Present: normal inspection - Neurological Exam Neurological exam: Present: alert, oriented X3, altered - Skin Skin exam: Present: normal color, warm Quality Measures - VTE Contraindication to Pharmacological VTE Prophylaxis: Already on Theraputic Agent , No Prophylaxis Needed Results - Labs CBC & BMP: 05/06/17 05:43 05/06/17 05:43 Lab Results: I have reviewed the past 24 hour labs
[2017-05-06] MEDS ORDERED: CHLORHEXIDINE 4% SOLN 118 ML BOTTLE TOP ONE (12:46)
--- NOTE | 2017-05-06 12:47 | Sleep Medicine Progress Note ---
Assessment and Plan (1) Obstructive sleep apnea Status: Chronic Assessment and plan: Continue with auto titration CPAP with follow-up in the sleep clinic for compliance after discharge. Current Visit: Yes (2) Hypertension Status: Chronic Current Visit: Yes (3) Diabetes Status: Chronic Current Visit: Yes (4) A-fib Status: Chronic Current Visit: Yes (5) Congestive heart failure Status: Acute Current Visit: Yes Sleep Medicine Subjective Interval history: Patient is sleep with CPAP auto titration last night but for less than 2 hours. He did have good results when he did use it. As long as he is here in the hospital, we will continue to utilize auto titration CPAP for his severe obstructive sleep apnea. We will have a prescription written for him to be set up with CPAP after discharge and he will be scheduled for follow-up in the sleep clinic. Thank you for this consult. Exam (Progress Note) - Constitutional Vitals: Period Temp Pulse Resp BP Sys/Pierre Pulse Ox Last 24 Hr 97 F-98.8 F 57-78 18-24 96-125/59-77 93-99 Exam: He is alert and responsive in no acute distress. Oropharynx with a class IV Mallampati exam. Neck is supple without adenopathy. Chest with good air movement and no focal wheeze or rhonchi. Cardiac exam reveals a regular rhythm without murmur or gallop. Abdomen obese nontender extremities with clean dry dressings on his lower extremities. Neurologically, he is grossly intact. Results - Labs CBC & BMP: 05/06/17 05:43 05/06/17 05:43 Lab Results: I have reviewed the past 24 hour labs
[2017-05-06] MEDS: PIPERACILLIN/TAZOBACTAM 3,375 MG in SODIUM CHLORIDE 0.9% 100 ML IV SCH (16:32)
[2017-05-06] MEDS: SKIN HEALING OINT (AQUAPHOR) 50 GM TUBE TOP PRN (16:34)
--- NOTE | 2017-05-06 18:21 | Cardiology Progress Note ---
I, Mayra Caballero RN, am scribing for, and in the presence of, Joshua Marte MD 18:21. Assessment and Plan (1) A-fib Status: Chronic Assessment and plan: Initial assessment and plan May 04, 2017: Patient's A. fib rate is controlled His lower extremity edema and redness and weeping to me seems more consistent with venous disease of the legs and cellulitis. Differential diagnosis would include right heart failure, left heart failure, some intra-abdominal abnormality, low albumin, hypothyroidism. My plan/recommendation: Check echo/Doppler Consult Dr. Cronin regarding sleep apnea Sleep propped up if cannot afford the CPAP Continue Coumadin to help prevent blood clots Check BNP Check albumin Check TSH if not done Elevate legs above the level of heart 10 minutes twice a day, if can Agree with Lasix Prognosis is guarded if he is unable to use CPAP, lose some weight, and get more active. However, I do not think any of these will happen. Assessment and plan May 05, 2017: Edema continues A surgeon and started wraps of his legs His echo today revealed good LVEF and not much pulmonary hypertension It was suggest that the edema of his legs is not due to right heart failure, left heart failure but most likely due to his untreated obstructive sleep apnea , his obesity, venous insufficiency of the legs, and low albumin. We will try to "fix what we can fix" Continue diuresis Agree with CPAP Elevate legs Prognosis remains guarded. Assessment and plan May 06, 2017: The swelling of the legs is not much better, per patient I agree with infectious disease to cover her cellulitis with antibiotics Continue diuresis Creatinine is increasing, we need to continue to watch that finding as he may be getting slightly intravascularly depleted. I encouraged him to continue to use his CPAP while in the hospital and afterwards. Current Visit: Yes (2) Chronic anticoagulation Status: Chronic Current Visit: Yes (3) Diabetes Status: Chronic Current Visit: Yes (4) Hyperlipidemia Status: Chronic Current Visit: Yes (5) Hypertension Status: Chronic Current Visit: Yes (6) Lower extremity edema Status: Acute Current Visit: Yes (7) Nicotine addiction Status: Chronic Current Visit: Yes (8) Obstructive sleep apnea Status: Chronic Current Visit: Yes (9) Skin ulcer of multiple sites of lower extremity, limited to breakdown of skin Status: Acute Current Visit: Yes Cardiology - PN: Subj Interval history: Corporate Legal Intern: Dr. Steven at [facility] Summary: Mr. Montelongo is a 57 year old male with a history of CAD, A. fib, hypertension, peripheral neuropathy, IDDM, COPD, and JOSE A. He reports he was diagnosed with sleep apnea several years ago but never got a CPAP machine because he cannot afford it. He is anticoagulated on warfarin for his atrial fibrillation. He reports having heart cath with stents in [place] several years ago. He told the admitting physician he had been admitted to [facility] and [facility] within the past year where he had heart cath with stents. He did not mention this to me. He has also had hernia repair and removal of salivary glands. He was orphaned as a child and does not know his family history, he only knows his grandmother was diabetic and heart disease. He is a current everyday smoker, was smoking 2 packs a day, he is down to 2 cigars a day now. He presented to the emergency department [facility] May 03 because of a one half month history of progressive bilateral lower extremity edema, redness, and pain. He was treated [facility] with antibiotics and was recently released. After discharge from [facility], the edema and redness worsened and he developed blisters that have now burst. He reports having chest pain sometimes at night that he describes as an ache on the right side of his chest. He has shortness of breath at rest, dyspnea on exertion, and orthopnea. He said these are not necessarily associated with the chest pain. Troponin was negative 1. He has been started on Lasix 40 mg IV every 6 hours. Chest x-ray showed vague central interstitial opacities. May 05, 2017: Mr. Montelongo was seen this morning sitting up in chair. His bilateral lower extremities have been dressed. He denies any chest pain or shortness of breath at this time. Vital signs were stable throughout the night. senior graduate advisor currently shows atrial fibrillation with heart rates in the 70s. INR this morning is 2.6. Potassium was replaced yesterday, this morning it is 4.1. His magnesium is low at 1.5, this is being replaced intravenously. Preliminary culture from his right leg grew out gram-negative rods and gram-positive cocci. He is on IV vancomycin. He had sleep study evaluation done last night, we will await these results. An echocardiogram has been ordered, this will be reviewed after completed. May 06, 2017: Mr. galloway is seen this morning without complaint of chest pain or shortness of breath. He does continue to have pain to his lower extremities. Bilateral lower extremities have dressings. He reports he slept under CPAP last night and tolerated this well. Vital signs been stable throughout the night. His magnesium was replaced intravenously yesterday, this morning magnesium is 1.9. His kidney function is slowly rising, this morning his BUN is 26 and creatinine is 1.4. senior graduate advisor currently shows atrial fibrillation with heart rates in the 110s during the night he did have periods where his heart rates were in the 50s and 60s. Echocardiogram with ejection fraction greater than 55%. Exam (Progress Note) - Constitutional Vitals: Period Temp Pulse Resp BP Sys/Pierre Pulse Ox Last 24 Hr 97 F-98.8 F 57-78 20-24 96-125/56-77 92-99 Exam: General: Present: Appears Well, No Apparent Distress HEENT: Present: PERRL, Mucus Membranes Moist Neck: Present: Supple Neck, Midline Trachea, No Bruit Cardiac: Present: Irregularly Regular, No Murmur Lungs: Present: Normal Breath Sounds, No Wheeze, Rales, Rhonchi Neuro: Absent: Resting Tremor, Essential Tremor Abdomen: Present: Soft, Active Bowel Sounds, Non-Tender. Absent: Distended Skin: Present: Warm, dry Musculoskeletal: Present: Decreased Range of Motion, Pain in Joint Gait: Present: Poor Gait Extremities: Present: Normal Upper Extr. Pulses, unable to assess lower extremities due to dressings Result/EKG - Labs CBC & BMP: 05/06/17 05:43 05/06/17 05:43 Lab Results: I have reviewed the past 24 hour labs Labs: Laboratory Results - last 24 hr 05/05/17 05/05/17 05/05/17 11:11 15:33 20:12 WBC RBC Hgb Hct MCV MCH MCHC RDW Plt Count MPV Neut % (Auto) Lymph % (Auto) Stearns % (Auto) Eos % (Auto) Baso % (Auto) Neut # (Auto) Lymph # (Auto) Stearns # (Auto) Eos # (Auto) Baso # (Auto) Immature Gran % Nucleated RBC % Immature Gran # Nucleated RBCs # Immature Plt Fraction Sodium Potassium Chloride Carbon Dioxide Anion Gap BUN Creatinine GFR Calculation BUN/Creatinine Ratio Glucose POC Glucose 215 H 160 H 211 H Calculated Osmolality Calcium Phosphorus Magnesium Total Bilirubin AST ALT Alkaline Phosphatase Total Protein Albumin Globulin Albumin/Globulin Ratio 05/06/17 05/06/17 05/06/17 05:43 05:43 05:43 WBC 10.2 RBC 5.13 Hgb 14.1 Hct 42.8 MCV 83.4 L MCH 28 MCHC 32.9 RDW 16.9 Plt Count 220 MPV 11.0 Neut % (Auto) 58.9 Lymph % (Auto) 28.3 Stearns % (Auto) 7.4 Eos % (Auto) 3.6 Baso % (Auto) 1.1 H Neut # (Auto) 6.0 Lymph # (Auto) 2.9 Stearns # (Auto) 0.8 Eos # (Auto) 0.4 Baso # (Auto) 0.1 Immature Gran % 0.7 Nucleated RBC % 0.0 Immature Gran # 0.07 Nucleated RBCs # 0.00 Immature Plt Fraction 0.0 Sodium 137 138 Potassium 4.6 4.6 Chloride 100 100 Carbon Dioxide 30 33 H Anion Gap 11.6 9.6 BUN 25 H 26 H Creatinine 1.30 1.40 H GFR Calculation 92 84 BUN/Creatinine Ratio 19.00 18.00 Glucose 171 H 168 H POC Glucose Calculated Osmolality 280.8 283.7 Calcium 8.4 L 8.3 L Phosphorus 3.8 Magnesium 2.0 1.9 Total Bilirubin 0.40 AST 10 ALT 20 Alkaline Phosphatase 84 Total Protein 6.8 Albumin 3.1 L Globulin 3.7 H Albumin/Globulin Ratio 0.8 L 05/06/17 07:17 WBC RBC Hgb Hct MCV MCH MCHC RDW Plt Count MPV Neut % (Auto) Lymph % (Auto) Stearns % (Auto) Eos % (Auto) Baso % (Auto) Neut # (Auto) Lymph # (Auto) Stearns # (Auto) Eos # (Auto) Baso # (Auto) Immature Gran % Nucleated RBC % Immature Gran # Nucleated RBCs # Immature Plt Fraction Sodium Potassium Chloride Carbon Dioxide Anion Gap BUN Creatinine GFR Calculation BUN/Creatinine Ratio Glucose POC Glucose 170 H Calculated Osmolality Calcium Phosphorus Magnesium Total Bilirubin AST ALT Alkaline Phosphatase Total Protein Albumin Globulin Albumin/Globulin Ratio - Diagnostic Findings Procedure: Chest x-ray: report reviewed by me - EKG EKG results: interpreted by me EKG shows: atrial fibrillation Quality Measures - VTE Contraindication to Pharmacological VTE Prophylaxis: Already on Theraputic Agent , No Prophylaxis Needed IRosanna Dale, MD, personally performed the services described in this documentation, ascribed by Mayra Caballero RN in my presence, and it is both accurate and complete 821 .
[2017-05-06] MEDS: PRAVASTATIN 40 MG TABLET PO SCH (20:42)
[2017-05-06] MEDS: MELATONIN 3 MG TABLET PO SCH (20:42)
[2017-05-06] MEDS: LINEZOLID 600 MG TABLET PO SCH (20:42)
[2017-05-06] MEDS: WARFARIN 5 MG TABLET PO SCH (20:43)
[2017-05-06] MEDS: MUPIROCIN 2% OINT 22 GM TUBE TOP SCH (20:47)
[2017-05-07] MEDS: FUROSEMIDE 40 MG/4 ML VIAL IV SCH ×4 (01:12→18:37)
[2017-05-07] MEDS: PIPERACILLIN/TAZOBACTAM 3,375 MG in SODIUM CHLORIDE 0.9% 100 ML IV SCH ×3 (01:12→17:28)
[2017-05-07] MEDS: oxyCODONE/ACETAMINOPHEN 5-325 MG TABLET PO PRN ×4 (02:08→20:46)
[2017-05-07 06:29] LABS: INR 3.2
[2017-05-07 06:45] LABS: Albumin 3.2 G/DL (3.4-5.0); Bilirubin,Total 1.3 MG/DL (0.2-1.0); Calcium 8.8 MG/DL (8.5-10.1); Magnesium 1.9 MG/DL (1.8-2.4); Osmolality,Calculated 279.8 MOS/KG (273-304); Phosphorous 3.2 MG/DL (2.5-4.9); Potassium 4.2 MMOL/L (3.5-5.1); Total Protein 7.2 G/DL (6.4-8.3)
[2017-05-07] MEDS: INSULIN LISPRO 100 UNIT/ML SUBCUT SCH ×4 (08:24→20:46)
[2017-05-07] MEDS: DILTIAZEM CD 180 MG CAPSULE PO SCH (08:25)
[2017-05-07] MEDS: METOPROLOL TARTRATE 100 MG TABLET PO SCH ×2 (08:25→17:27)
[2017-05-07] MEDS: LISINOPRIL 20 MG TABLET PO SCH (08:27)
[2017-05-07] MEDS: metFORMIN 500 MG TABLET PO SCH ×2 (08:27→20:45)
[2017-05-07] MEDS: DIGOXIN 0.25 MG TABLET PO SCH (08:28)
[2017-05-07] MEDS: ISOSORBIDE DINITRATE 20 MG TABLET PO SCH ×2 (08:28→20:45)
[2017-05-07] MEDS: sitaGLIPtin 25 MG TABLET PO SCH ×2 (08:28→20:45)
[2017-05-07] MEDS: LINEZOLID 600 MG TABLET PO SCH ×2 (08:29→20:46)
--- NOTE | 2017-05-07 10:51 | General Surgery Progress Note ---
Assessment and Plan (1) Cellulitis Status: Acute Assessment and plan: The patient appears to have bilateral lower extremity cellulitis in the setting of chronic stasis dermatitis secondary to chronic edema of his lower extremities. It does not appear to involve an underlying abscess. This needs to be treated with antibiotics and compression therapy to hopefully limit the edema of his lower legs to allow the cellulitis to clear. This can be difficult to clear up because of the chronic changes of the skin and soft tissues of his lower leg. We can try culturing some of the fluid from the knee the bulla which appear to be limited to the epidermis. 05/06: Overall I think he has a little bit less edema and erythema. I debrided away the bullous areas that he had before and this is really unchanged. There was not purulent material and the bulla. His cultures are growing multiple organisms. I do not see evidence of abscess to drain. I will get an opinion from Dr. Chavez from wound care to see if he has any other ideas managing this for the long-term. This is going to be a challenge to prevent infections in the future. A lot of his skin change appears to be chronic and not acute. 05/07: He seems to have a bit less edema with compressive therapy. Dr. Chavez has seen him and has changed the compression to Covan dressings. I defer to Dr. Hickman's judgment on this since he is a physician specialist. I feel that this will be a slow process to resolve. It will never completely resolved since he has such chronic changes of his skin. Current Visit: Yes Qualifiers: Site of cellulitis of extremity: lower extremity Laterality: unspecified laterality Subjective Patient reports: Present: feels better. Absent: still having pain, fever Exam - Constitutional Vitals: Period Temp Pulse Resp BP Sys/Pierre Pulse Ox Last 24 Hr 97.2 F-98.3 F 52-73 16-22 100-124/55-71 90-98 General appearance: no acute distress, morbidly obese - Respiratory Respiratory exam: Absent: accessory muscle use - Extremities Exam Extremities exam: Present: edema. Absent: calf tenderness Results - Labs CBC & BMP: 05/06/17 05:43 05/07/17 05:32 Quality Measures - VTE Contraindication to Pharmacological VTE Prophylaxis: Already on Theraputic Agent , No Prophylaxis Needed
--- NOTE | 2017-05-07 12:41 | Hospitalist Progress Note ---
Assessment and Plan (1) Obstructive sleep apnea Status: Chronic Assessment and plan: He is undergoing evaluation by sleep medicine. He will need to undergo a sleep study post discharge. Current Visit: Yes (2) Skin ulcer of multiple sites of lower extremity, limited to breakdown of skin Status: Acute Assessment and plan: He underwent debridement yesterday. The nurses report there are no remaining blisters of his lower extremities. Current Visit: Yes (3) Cellulitis Status: Acute Assessment and plan: He has been seen in consultation by infectious disease. He is presently being treated with intravenous linezolid and Zosyn. Current Visit: Yes Qualifiers: Site of cellulitis of extremity: lower extremity Laterality: unspecified laterality (4) Acute renal insufficiency Status: Acute Assessment and plan: His BUN and creatinine have decreased to 22 and 1.2. His acute renal failure appears resolved. Current Visit: Yes (5) Chronic venous insufficiency Status: Acute Current Visit: Yes Hospitalist: Subjective Interval history: Patient has been seen in consultation by infectious diseases, general surgery, sleep medicine, and wound care. He underwent debridement of the lower extremities. His antibiotics were changed by infectious disease to linezolid and Zosyn. Exam - Constitutional Vitals: Period Temp Pulse Resp BP Sys/Pierre Pulse Ox Last 24 Hr 97.2 F-98.3 F 52-68 16-22 100-118/55-71 90-98 General appearance: no acute distress - Head Head exam: Present: normal inspection - Neck Neck exam: Present: normal inspection - Respiratory Respiratory exam: Present: clear to auscultation bilaterally - Cardiovascular Cardiovascular exam: Present: regular rate and rhythm - GI/Abdominal GI/Abdominal exam: Present: normal bowel sounds, soft, other (Nontender with no palpable masses or hepatosplenomegaly.) - Extremities Exam Extremities exam: Present: other (Both legs are wrapped with Nico bandages at the present time. The nurses report that, following the debridement, they look significantly improved.) - Neurological Exam Neurological exam: Present: alert, oriented X3 - Skin Skin exam: Present: normal color, warm, intact Results - Labs CBC & BMP: 05/06/17 05:43 05/07/17 05:32 Quality Measures - VTE Contraindication to Pharmacological VTE Prophylaxis: Already on Theraputic Agent , No Prophylaxis Needed
--- NOTE | 2017-05-07 14:41 | Cardiology Progress Note ---
Assessment and Plan (1) A-fib Status: Chronic Assessment and plan: Initial assessment and plan May 04, 2017: Patient's A. fib rate is controlled His lower extremity edema and redness and weeping to me seems more consistent with venous disease of the legs and cellulitis. Differential diagnosis would include right heart failure, left heart failure, some intra-abdominal abnormality, low albumin, hypothyroidism. My plan/recommendation: Check echo/Doppler Consult Dr. Cronin regarding sleep apnea Sleep propped up if cannot afford the CPAP Continue Coumadin to help prevent blood clots Check BNP Check albumin Check TSH if not done Elevate legs above the level of heart 10 minutes twice a day, if can Agree with Lasix Prognosis is guarded if he is unable to use CPAP, lose some weight, and get more active. However, I do not think any of these will happen. Assessment and plan May 05, 2017: Edema continues A surgeon and started wraps of his legs His echo today revealed good LVEF and not much pulmonary hypertension It was suggest that the edema of his legs is not due to right heart failure, left heart failure but most likely due to his untreated obstructive sleep apnea , his obesity, venous insufficiency of the legs, and low albumin. We will try to "fix what we can fix" Continue diuresis Agree with CPAP Elevate legs Prognosis remains guarded. Assessment and plan May 06, 2017: The swelling of the legs is not much better, per patient I agree with infectious disease to cover her cellulitis with antibiotics Continue diuresis Creatinine is increasing, we need to continue to watch that finding as he may be getting slightly intravascularly depleted. I encouraged him to continue to use his CPAP while in the hospital and afterwards. 05/07/17 Edema of the legs is being addressed-predominately venous disease and cellulitis Low heart rate on monitor at night is noted. We will discontinue the digoxin. He is on metoprolol and Cardizem CD which may be adequate to control his heart rate I conferred care with his nurse Current Visit: Yes (2) Chronic anticoagulation Status: Chronic Current Visit: Yes (3) Diabetes Status: Chronic Current Visit: Yes (4) Hyperlipidemia Status: Chronic Current Visit: Yes (5) Hypertension Status: Chronic Current Visit: Yes (6) Lower extremity edema Status: Acute Assessment and plan: Patient's A. fib rate is controlled His lower extremity edema and redness and weeping to me seems more consistent with venous disease of the legs and cellulitis. Differential diagnosis would include right heart failure, left heart failure, some intra-abdominal abnormality, low albumin, hypothyroidism. My plan/recommendation: Check echo/Doppler Consult Dr. Cronin regarding sleep apnea Sleep propped up if cannot afford the CPAP Continue Coumadin to help prevent blood clots Check BNP Check albumin Check TSH if not done Elevate legs above the level of heart 10 minutes twice a day, if can Agree with Lasix Prognosis is guarded if he is unable to use CPAP, lose some weight, and get more active. However, I do not think any of these will happen. Thank you for allowing me to participate in this patient's care Current Visit: Yes (7) Nicotine addiction Status: Chronic Current Visit: Yes (8) Obstructive sleep apnea Status: Chronic Current Visit: Yes (9) Skin ulcer of multiple sites of lower extremity, limited to breakdown of skin Status: Acute Current Visit: Yes Cardiology - PN: Subj Interval history: No chest pain or shortness of breath. Edema of the legs being treated. Exam (Progress Note) - Constitutional Vitals: Period Temp Pulse Resp BP Sys/Pierre Pulse Ox Last 24 Hr 97.2 F-98.3 F 52-70 16-22 100-118/55-71 90-98 Exam: General: Present: Appears Well, No Apparent Distress HEENT: Present: PERRL, Mucus Membranes Moist Neck: Present: Supple Neck, Midline Trachea, No Bruit Cardiac: Present: Irregularly Regular, No Murmur Lungs: Present: Normal Breath Sounds, No Wheeze, Rales, Rhonchi Neuro: Absent: Resting Tremor, Essential Tremor Abdomen: Present: Soft, Active Bowel Sounds, Non-Tender. Absent: Distended Skin: Present: Warm, dry Musculoskeletal: Present: Decreased Range of Motion, Pain in Joint Gait: Present: Poor Gait Extremities: Present: Normal Upper Extr. Pulses, unable to assess lower extremities due to dressings Result/EKG - Labs CBC & BMP: 05/06/17 05:43 05/07/17 05:32 Labs: Laboratory Results - last 24 hr 05/06/17 05/06/17 05/07/17 16:38 19:46 05:32 INR 3.2 PT Patient/Control Mix 37.0 Sodium Potassium Chloride Carbon Dioxide Anion Gap BUN Creatinine GFR Calculation BUN/Creatinine Ratio Glucose POC Glucose 171 H 177 H Calculated Osmolality Calcium Phosphorus Magnesium Total Bilirubin AST ALT Alkaline Phosphatase Total Protein Albumin Globulin Albumin/Globulin Ratio 05/07/17 05/07/17 05/07/17 05:32 07:39 12:28 INR PT Patient/Control Mix Sodium 137 Potassium 4.2 Chloride 100 Carbon Dioxide 30 Anion Gap 11.2 BUN 22 H Creatinine 1.20 GFR Calculation 101 BUN/Creatinine Ratio 18.00 Glucose 165 H POC Glucose 178 H 225 H Calculated Osmolality 279.8 Calcium 8.8 Phosphorus 3.2 Magnesium 1.9 Total Bilirubin 1.30 H AST 15 ALT 21 Alkaline Phosphatase 85 Total Protein 7.2 Albumin 3.2 L Globulin 4.0 H Albumin/Globulin Ratio 0.8 L - EKG EKG shows: bradycardia (On monitoring, while he is asleep, his heart rate drops to about 40 bpm. During the day, it is 60-70 bpm) Quality Measures - VTE Contraindication to Pharmacological VTE Prophylaxis: Already on Theraputic Agent , No Prophylaxis Needed
[2017-05-07] MEDS: MUPIROCIN 2% OINT 22 GM TUBE TOP SCH ×2 (14:42→20:47)
[2017-05-07] MEDS: SKIN HEALING OINT (AQUAPHOR) 50 GM TUBE TOP PRN (14:43)
[2017-05-07] MEDS: MELATONIN 3 MG TABLET PO SCH (20:45)
[2017-05-07] MEDS: PRAVASTATIN 40 MG TABLET PO SCH (20:46)
[2017-05-08] MEDS: PIPERACILLIN/TAZOBACTAM 3,375 MG in SODIUM CHLORIDE 0.9% 100 ML IV SCH ×3 (00:55→17:07)
[2017-05-08] MEDS: FUROSEMIDE 40 MG/4 ML VIAL IV SCH ×4 (00:55→18:34)
[2017-05-08] MEDS: oxyCODONE/ACETAMINOPHEN 5-325 MG TABLET PO PRN ×4 (05:42→20:24)
[2017-05-08 07:16] LABS: INR 3.2
[2017-05-08 07:27] LABS: Albumin 3.1 G/DL (3.4-5.0); Bilirubin,Total 0.7 MG/DL (0.2-1.0); Calcium 8.5 MG/DL (8.5-10.1); Osmolality,Calculated 279.8 MOS/KG (273-304); Potassium 4.2 MMOL/L (3.5-5.1); Total Protein 6.8 G/DL (6.4-8.3)
--- NOTE | 2017-05-08 08:39 | Hospitalist Progress Note ---
<Jackie Delucada - Last Filed: 05/08/17 08:36> Assessment and Plan (1) Chronic anticoagulation Status: Chronic Assessment and plan: The patient is chronically coagulated with warfarin. No INR ordered for this morning, we will order stat INR and adjust Coumadin accordingly. 05/05-INR noted at 2.5 on yesterday and 2.6 today. Pharmacy has been consulted to assist in the management of the patient's anticoagulation. We will recheck INR in a.m. 05/06-INR not available. We will order stat INR. Pharmacy to manage Coumadin. 05/07-INR noted at 3.2. Pharmacy to manage Coumadin. 05/08-PT/INR noted at 32/37.0. Pharmacy to manage Coumadin. Current Visit: Yes (2) Lower extremity edema Status: Acute Assessment and plan: The wounds to the bilateral lower extremities are chronic in nature. We will obtain a surgery consultation for recommendations for care. In addition, we will obtain wound culture and sent for analysis. 05/05-compression dressings applied to the bilateral lower extremities yesterday per surgery recommendation. We appreciate the input. We will continue compression dressings as ordered. 05/06-continue compression dressings to bilateral lower extremities per surgery recommendation. 05/08-continue compression dressings to bilateral lower extremities per surgery recommendation. Current Visit: Yes (3) Obstructive sleep apnea Status: Chronic Assessment and plan: Sleep medicine consultation has been requested. 05/05-patient was seen and evaluated by sleep medicine on yesterday. Sleep study was scheduled overnight. We will await sleep study results and proposed recommendations per sleep medicine. Current Visit: Yes (4) Skin ulcer of multiple sites of lower extremity, limited to breakdown of skin Status: Acute Assessment and plan: We will obtain wound culture and consult surgery for further evaluation. We will continue empiric antibiotic as previously ordered. 05/05-patient was seen and evaluated by surgery on yesterday. Bilateral compression dressings were applied. We will continue empiric antibiotic coverage and await culture sensitivity report. 05/06-culture sensitivity report significant for gram-negative rods and gram- positive cocci. We will consult infectious disease to evaluate and assist in the management of the patient's antibiotic regimen. Current Visit: Yes (5) Hyperlipidemia Status: Chronic Assessment and plan: Lipid panel obtained at the time of admission reported gross elevations in the patient's cholesterol panel including triglycerides at 452, cholesterol 226, and HDL cholesterol at 30. The patient reported that he had previously been on a lipid-lowering agent however he had run out of his medication. We will start pravastatin 40 mg nightly. Current Visit: Yes (6) Cellulitis Status: Acute Assessment and plan: Wound culture of the bilateral lower extremities significant for Klebsiella pneumoniae, gram-positive cocci, Staphylococcus hemolyticus. Infectious disease has been consulted and is managing antibiotic therapy. Current Visit: Yes Qualifiers: Site of cellulitis of extremity: lower extremity Laterality: unspecified laterality Hospitalist: Subjective Interval history: Patient seen and examined; chart review. No significant overnight events reported per staff. Patient reports the overwhelming urge to smoke this morning. Discussed in great detail the merits associated with small cessitation ; will order nicotine patch for remaining portion of the admission. Exam - Constitutional Vitals: Period Temp Pulse Resp BP Sys/Pierre Pulse Ox Last 24 Hr 96.5 F-97.8 F 52-70 16-20 105-133/56-73 93-98 General appearance: morbidly obese - Head Head exam: Present: normal inspection, normocephalic, atraumatic - Eye Eye exam: Present: EOMI. Absent: conjunctival injection Pupils: Present: NAT, normal accommodation - ENT ENT exam: Present: normal exam, normal external ear exam, normal oropharynx - Neck Neck exam: Present: normal inspection. Absent: lymphadenopathy, meningismus, tenderness, thyromegaly - Respiratory Respiratory exam: Present: clear to auscultation bilaterally. Absent: rales, rhonchi, stridor, wheezes - Cardiovascular Cardiovascular exam: Present: regular rate and rhythm. Absent: carotid bruit, diastolic murmur, gallop, JVD, rubs, systolic murmur - GI/Abdominal GI/Abdominal exam: Present: normal bowel sounds, soft - Extremities Exam Extremities exam: Present: edema (+3 edema noted to bilateral lower extreme) - Back Exam Back exam: Present: normal inspection - Neurological Exam Neurological exam: Present: alert, oriented X3, CN II-XII intact - Psychiatric Psychiatric exam: Present: normal affect, normal mood - Skin Skin exam: Present: normal color, warm, dry Results - Labs CBC & BMP: 05/06/17 05:43 05/08/17 06:10 Lab Results: I have reviewed the past 24 hour labs Quality Measures - VTE Contraindication to Pharmacological VTE Prophylaxis: Already on Theraputic Agent , No Prophylaxis Needed <Jayden Smith - Last Filed: 05/08/17 09:46> Assessment and Plan (1) Obstructive sleep apnea Status: Chronic Current Visit: Yes (2) Skin ulcer of multiple sites of lower extremity, limited to breakdown of skin Status: Acute Current Visit: Yes (3) Cellulitis Status: Acute Current Visit: Yes Qualifiers: Site of cellulitis of extremity: lower extremity Laterality: unspecified laterality (4) Acute renal insufficiency Status: Acute Current Visit: Yes (5) Chronic venous insufficiency Status: Acute Current Visit: Yes Hospitalist: Subjective Interval history: Patient is doing well. He continues on intravenous antibiotics and local wound care for his lower extremities. I have consulted case management to arrange for outpatient wound care and antibiotics. Exam - Constitutional Vitals: Period Temp Pulse Resp BP Sys/Pierre Pulse Ox Last 24 Hr 96.5 F-97.8 F 52-74 16-20 105-133/56-73 93-98 Results - Labs CBC & BMP: 05/06/17 05:43 05/08/17 06:10
[2017-05-08] MEDS: INSULIN LISPRO 100 UNIT/ML SUBCUT SCH ×4 (08:48→21:26)
[2017-05-08] MEDS: METOPROLOL TARTRATE 100 MG TABLET PO SCH ×2 (08:49→17:07)
[2017-05-08] MEDS: MUPIROCIN 2% OINT 22 GM TUBE TOP SCH ×2 (08:49→21:27)
[2017-05-08] MEDS: SKIN HEALING OINT (AQUAPHOR) 50 GM TUBE TOP PRN (08:49)
[2017-05-08] MEDS: metFORMIN 500 MG TABLET PO SCH ×2 (08:50→21:25)
[2017-05-08] MEDS: DILTIAZEM CD 180 MG CAPSULE PO SCH (08:50)
[2017-05-08] MEDS: LISINOPRIL 20 MG TABLET PO SCH (08:51)
[2017-05-08] MEDS: sitaGLIPtin 25 MG TABLET PO SCH ×2 (08:51→21:25)
[2017-05-08] MEDS: ISOSORBIDE DINITRATE 20 MG TABLET PO SCH ×2 (08:51→21:25)
[2017-05-08] MEDS: LINEZOLID 600 MG TABLET PO SCH ×2 (08:53→21:26)
--- NOTE | 2017-05-08 14:25 | Cardiology Progress Note ---
Assessment and Plan (1) A-fib Status: Chronic Assessment and plan: Initial assessment and plan May 04, 2017: Patient's A. fib rate is controlled His lower extremity edema and redness and weeping to me seems more consistent with venous disease of the legs and cellulitis. Differential diagnosis would include right heart failure, left heart failure, some intra-abdominal abnormality, low albumin, hypothyroidism. My plan/recommendation: Check echo/Doppler Consult Dr. Cronin regarding sleep apnea Sleep propped up if cannot afford the CPAP Continue Coumadin to help prevent blood clots Check BNP Check albumin Check TSH if not done Elevate legs above the level of heart 10 minutes twice a day, if can Agree with Lasix Prognosis is guarded if he is unable to use CPAP, lose some weight, and get more active. However, I do not think any of these will happen. Assessment and plan May 05, 2017: Edema continues A surgeon and started wraps of his legs His echo today revealed good LVEF and not much pulmonary hypertension It was suggest that the edema of his legs is not due to right heart failure, left heart failure but most likely due to his untreated obstructive sleep apnea , his obesity, venous insufficiency of the legs, and low albumin. We will try to "fix what we can fix" Continue diuresis Agree with CPAP Elevate legs Prognosis remains guarded. Assessment and plan May 06, 2017: The swelling of the legs is not much better, per patient I agree with infectious disease to cover her cellulitis with antibiotics Continue diuresis Creatinine is increasing, we need to continue to watch that finding as he may be getting slightly intravascularly depleted. I encouraged him to continue to use his CPAP while in the hospital and afterwards. 05/07/17 Edema of the legs is being addressed-predominately venous disease and cellulitis Low heart rate on monitor at night is noted. We will discontinue the digoxin. He is on metoprolol and Cardizem CD which may be adequate to control his heart rate I conferred care with his nurse 05/08/17: Assessment/plan/recommendation: Heart rate seems better off the digoxin Edema of the legs continues He says he did not use his CPAP last night. I encouraged him to use it each night while asleep He complains of leg pain. Maybe it is her neuropathy. Maybe it is mechanical related to his weight are as positioned in the chair. He might consider a trial of Lyrica or gabapentin or consulting pain specialist. Current Visit: Yes (2) Chronic anticoagulation Status: Chronic Current Visit: Yes (3) Diabetes Status: Chronic Current Visit: Yes (4) Hyperlipidemia Status: Chronic Current Visit: Yes (5) Hypertension Status: Chronic Current Visit: Yes (6) Lower extremity edema Status: Acute Assessment and plan: Patient's A. fib rate is controlled His lower extremity edema and redness and weeping to me seems more consistent with venous disease of the legs and cellulitis. Differential diagnosis would include right heart failure, left heart failure, some intra-abdominal abnormality, low albumin, hypothyroidism. My plan/recommendation: Check echo/Doppler Consult Dr. Cronin regarding sleep apnea Sleep propped up if cannot afford the CPAP Continue Coumadin to help prevent blood clots Check BNP Check albumin Check TSH if not done Elevate legs above the level of heart 10 minutes twice a day, if can Agree with Lasix Prognosis is guarded if he is unable to use CPAP, lose some weight, and get more active. However, I do not think any of these will happen. Thank you for allowing me to participate in this patient's care Current Visit: Yes (7) Nicotine addiction Status: Chronic Current Visit: Yes (8) Obstructive sleep apnea Status: Chronic Current Visit: Yes (9) Skin ulcer of multiple sites of lower extremity, limited to breakdown of skin Status: Acute Current Visit: Yes Cardiology - PN: Subj Interval history: No chest pain or shortness of breath. Leg edema continues. Exam (Progress Note) - Constitutional Vitals: Period Temp Pulse Resp BP Sys/Pierre Pulse Ox Last 24 Hr 96.5 F-97.8 F 52-74 16-20 111-133/63-73 92-98 Exam: General: Present: Appears Well, No Apparent Distress HEENT: Present: PERRL, Mucus Membranes Moist Neck: Present: Supple Neck, Midline Trachea, No Bruit Cardiac: Present: Irregularly Regular, No Murmur Lungs: Present: Normal Breath Sounds, No Wheeze, Rales, Rhonchi Neuro: Absent: Resting Tremor, Essential Tremor Abdomen: Present: Soft, Active Bowel Sounds, Non-Tender. Absent: Distended Skin: Present: Warm, dry Musculoskeletal: Present: Decreased Range of Motion, Pain in Joint Gait: Present: Poor Gait Extremities: Present: Normal Upper Extr. Pulses, unable to assess lower extremities due to dressings Result/EKG - Labs CBC & BMP: 05/06/17 05:43 05/08/17 06:10 Lab Results: I have reviewed the past 24 hour labs Labs: Laboratory Results - last 24 hr 05/07/17 05/07/17 05/08/17 15:13 19:47 06:10 INR PT Patient/Control Mix Sodium 137 Potassium 4.2 Chloride 102 Carbon Dioxide 29 Anion Gap 10.2 BUN 19 H Creatinine 1.10 GFR Calculation 113 BUN/Creatinine Ratio 17.00 Glucose 192 H POC Glucose 171 H 185 H Calculated Osmolality 279.8 Calcium 8.5 Total Bilirubin 0.70 AST 9 ALT 21 Alkaline Phosphatase 82 Total Protein 6.8 Albumin 3.1 L Globulin 3.7 H Albumin/Globulin Ratio 0.8 L 05/08/17 05/08/17 05/08/17 06:10 07:44 11:27 INR 3.2 PT Patient/Control Mix 37.0 Sodium Potassium Chloride Carbon Dioxide Anion Gap BUN Creatinine GFR Calculation BUN/Creatinine Ratio Glucose POC Glucose 179 H 176 H Calculated Osmolality Calcium Total Bilirubin AST ALT Alkaline Phosphatase Total Protein Albumin Globulin Albumin/Globulin Ratio - EKG EKG results: interpreted by me Quality Measures - VTE Contraindication to Pharmacological VTE Prophylaxis: Already on Theraputic Agent , No Prophylaxis Needed
[2017-05-08] MEDS ORDERED: WARFARIN 4 MG TABLET PO SCH (18:00)
[2017-05-08] MEDS: MELATONIN 3 MG TABLET PO SCH (21:25)
[2017-05-08] MEDS: PRAVASTATIN 40 MG TABLET PO SCH (21:26)
[2017-05-09] MEDS: FUROSEMIDE 40 MG/4 ML VIAL IV SCH ×3 (00:55→14:30)
[2017-05-09] MEDS: PIPERACILLIN/TAZOBACTAM 3,375 MG in SODIUM CHLORIDE 0.9% 100 ML IV SCH ×2 (01:03→09:59)
[2017-05-09] MEDS: oxyCODONE/ACETAMINOPHEN 5-325 MG TABLET PO PRN ×2 (01:04→05:04)
[2017-05-09 06:09] LABS: INR 2.4
[2017-05-09 06:14] LABS: PT Patient Result 26.8 SECS
[2017-05-09 06:51] LABS: Albumin 3.3 G/DL (3.4-5.0); Bilirubin,Total 0.7 MG/DL (0.2-1.0); Calcium 8.7 MG/DL (8.5-10.1); Osmolality,Calculated 280.7 MOS/KG (273-304); Potassium 4.1 MMOL/L (3.5-5.1)
[2017-05-09] MEDS: LISINOPRIL 20 MG TABLET PO SCH (09:57)
[2017-05-09] MEDS: sitaGLIPtin 25 MG TABLET PO SCH (09:58)
[2017-05-09] MEDS: LINEZOLID 600 MG TABLET PO SCH (09:58)
[2017-05-09] MEDS: metFORMIN 500 MG TABLET PO SCH (09:58)
[2017-05-09] MEDS: DILTIAZEM CD 180 MG CAPSULE PO SCH (09:58)
[2017-05-09] MEDS: ISOSORBIDE DINITRATE 20 MG TABLET PO SCH (09:58)
--- NOTE | 2017-05-09 10:30 | Discharge Summary ---
Hospital Course - Hospital Course Hospital Course: Mr. Montelongo is a 57 year old white male with history of diabetes, hypertension, A. fib on Coumadin, tobacco abuse, CHF, untreated JOSE A and CAD status post stents presenting to the ED with a 1 month history of progressive bilateral lower extremity swelling and pain. Patient states he has always had swelling in his legs with redness but a proximally 1 month ago it seemed to worsen. He was admitted to [facility] for 2 weeks for antibiotics and was recently released. Patient states the swelling worsened along with the redness and pain and he developed blisters that have popped. Patient also states he was admitted to [facility] and [facility] in the past year where her heart cath with stents were done. They told him at that time he needed a heart bypass but would not do it due to his chronic smoking. Patient sees Dr. 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 Key at [facility] as his respiratory therapist. Upon exam patient has conversational dyspnea with pitting edema to the knees of bilateral lower extremities with erythema and open blistering. He is afebrile vital signs are stable and his labs are relatively normal. Chest x-ray shows vague interstitial opacities with atelectasis and early interstitial edema. Mr. Montelongo was admitted to the hospital with cellulitis and chronic lymphedema of both lower extremities. He was seen in consultation by surgery who performed debridement of some of the areas of blistering of his lower extremities. Cultures of his lower extremities demonstrated Klebsiella pneumonia, Staphylococcus epidermidis, and Staphylococcus hemolytic. He was treated in the hospital with linezolid and Zosyn. He was seen in consultation by wound care will continue treatment of his lower extremities during his hospitalization. At the time of his discharge she was stable with no complaints. Diagnosis - Discharge Diagnosis (1) Obstructive sleep apnea Status: Chronic (2) Skin ulcer of multiple sites of lower extremity, limited to breakdown of skin Status: Chronic (3) Cellulitis Status: Acute (4) Acute renal insufficiency Status: Acute (5) Chronic venous insufficiency Status: Chronic (6) Lymphedema of both lower extremities Status: Chronic (7) Obesity Status: Chronic Discharge Plan - Discharge Data Disposition: Home Health Service Condition at Discharge: Stable Discharge Diet: advance to your usual diet Activity: resume usual activities as tolerated Wound / Dressing Care Instructions: Clean and wrap both lower extremities - Discharge Medications New Linezolid Tab [Zyvox Tab] 600 mg PO Q12HR #28 tablet Pravastatin [Pravachol] 40 mg PO BEDTIME tablet Warfarin [Coumadin] 4 mg PO DAILY@1800 #30 tablet metFORMIN [Glucophage] 1,000 mg PO BID tablet sitaGLIPtin [Januvia] 50 mg PO BID tablet Ciprofloxacin Tab [Cipro Tab] 500 mg PO BID #28 tablet Skin Healing Oint (Aquaphor) [Aquaphor] 1 applic TOP PRN PRN #1 applic PRN Reason: Dry Skin Continue dilTIAZem HCl [Diltiazem ER (24 hr)] 360 mg PO DAILY Warfarin [Coumadin] 5 mg PO BEDTIME Isosorbide Dinitrate 40 mg PO BID Furosemide Tab [Lasix Tab] 40 mg PO BID DIURETIC Sitagliptin Phos/Metformin HCl [Janumet 50-1,000 mg Tablet] 1 each PO BID Metoprolol Tartrate 100 mg PO BID W/MEALS Digoxin Tab [Lanoxin Tab] 0.25 mg PO QAM Lisinopril 40 mg PO DAILY Melatonin 10 mg PO BEDTIME - Follow Up or Referral - Forms/Instructions Exam - Constitutional Vitals: Period Temp Pulse Resp BP Sys/Pierre Pulse Ox Last 24 Hr 96.5 F-98 F 58-91 16-20 121-149/54-76 94-97 Discharge Results Procedures and tests throughout hospitalization: Pending Orders 05/06/17 12:51 Blood Culture Stat 05/11/17 04:00 Prothrombin Time INR IN AM Labs on day of discharge: Labs from last 24 hours 05/09/17 05/09/17 05/09/17 07:30 05:03 05:03 INR 2.4 PT Patient/Control Mix 26.8 D Sodium 138 Potassium 4.1 Chloride 103 Carbon Dioxide 30 Anion Gap 9.1 BUN 20 H Creatinine 1.20 GFR Calculation 101 BUN/Creatinine Ratio 16.00 Glucose 146 H POC Glucose 174 H Calculated Osmolality 280.7 Calcium 8.7 Total Bilirubin 0.70 AST 13 ALT 23 Alkaline Phosphatase 86 Total Protein 7.0 Albumin 3.3 L Globulin 3.7 H Albumin/Globulin Ratio 0.8 L 05/08/17 05/08/17 05/08/17 20:23 15:32 11:27 INR PT Patient/Control Mix Sodium Potassium Chloride Carbon Dioxide Anion Gap BUN Creatinine GFR Calculation BUN/Creatinine Ratio Glucose POC Glucose 210 H 190 H 176 H Calculated Osmolality Calcium Total Bilirubin AST ALT Alkaline Phosphatase Total Protein Albumin Globulin Albumin/Globulin Ratio Preliminary micro results at discharge 05/06/17 12:51 Blood Culture - Preliminary Blood No growth at 1 day 05/06/17 12:51 Blood Culture - Preliminary Blood No growth at 1 day DS: Provider Date of admission: 05/03/17 17:30 Primary care physician: . No PCP Attending physician on admission: Hammad Ladd MD Consults: 05/03/17 18:59 Consult to Physician [CONS] Routine Comment: prob sleep apnea Consulting Provider: La Cronin Consult Notification Comment: ELOPOLDO IS NOT HERE TODAY PER [facility] Consult to Wound Care [facility] [CONS] Routine Reason for Wound Care: Wound Care Management Consult Comment: BLE edema w cellulitis and blistering 05/04/17 08:55 Consult to Physician [CONS] Routine Comment: Consulting Provider: Zeyad Stewart III. When should Consulting Provider be notified: Now Person Notified: UTE Date Notified: 05/04/17 Time Notified: 09:20 05/04/17 08:56 Consult to Physician [CONS] Routine Comment: Consulting Provider: Ute Higuera When should Consulting Provider be notified: Now Person Notified: BARBARA Date Notified: 05/04/17 Time Notified: 09:09 05/04/17 09:07 Consult to Pharmacy [CONS] Routine Reason for Pharmacy Consult: Other Comment: Coumadin mangement 05/04/17 10:05 Consult to Pharmacy [CONS] Routine Reason for Pharmacy Consult: Dose/Manage Vancomycin 05/05/17 10:39 Consult to Wound Care [facility] [CONS] Routine Reason for Wound Care: Wound Care Management 05/05/17 15:53 Consult to Case Mgmt/Social Srvs [CONS] Routine Reason for Case Mgmt/Social Srvs: Discharge Planning Consult Comment: Home IV antibiotics and wound care 05/06/17 09:20 Consult to Case Mgmt/Social Srvs [CONS] Routine Reason for Case Mgmt/Social Srvs: Discharge Planning Consult Comment: Home IV antibiotics, wound care, CPAP. Discharge as soon as arranged. 05/06/17 09:37 Consult to Physician [CONS] Routine Comment: Consulting Provider: Lyndsay Mahajan When should Consulting Provider be notified: Now 05/06/17 10:00 Consult to Physician [CONS] Routine Comment: Lower extremity cellulitis Consulting Provider: Amador Hickman When should Consulting Provider be notified: Now Person Notified: ELMIRA SIBLEY Date Notified: 05/06/17 Time Notified: 10:05 Consult Notification Comment: I CALLED ELMIRA ON HER CELL THE OFFICE WAS CLOSED 05/06/17 11:02 Consult to Physical Therapy [CONS] Routine Reason for Physical Therapy: Gait Training Consult Comment: Dr. Hickman wants him to walk with a walker and take one home. 05/06/17 11:03 Consult to Case Mgmt/Social Srvs [CONS] Routine Reason for Case Mgmt/Social Srvs: Discharge Planning Consult Comment: pt needs walker to go home with. 05/06/17 13:29 Consult to Case Mgmt/Social Srvs [CONS] Routine Reason for Case Mgmt/Social Srvs: Discharge Planning Consult Comment: farrow wraps for both legs and feet Discharging clinician: Jayden Smith
[2017-05-09] MEDS: INSULIN LISPRO 100 UNIT/ML SUBCUT SCH ×2 (10:37→11:34)
[2017-05-09] MEDS: METOPROLOL TARTRATE 100 MG TABLET PO SCH (10:38)
[2017-05-09] MEDS: MUPIROCIN 2% OINT 22 GM TUBE TOP SCH (10:38)
--- NOTE | 2017-05-09 11:26 | General Surgery Progress Note ---
Assessment and Plan - Time spent with patient Time spent with patient: Less than 30 minutes (1) Cellulitis Status: Acute Assessment and plan: Impression: Cellulitis of both lower extremities right greater than left secondary to chronic his edema and blistering. Plan: We will continue present antibiotics at this point time as well as local wound care 05/09/2017. Cellulitis of the lower extremities has pretty much cleared up even though we still have some ulcerations that are fairly superficial and still need to be dealt with. These wounds need continued care and daily dressing changes as well as compressive therapy or to keep this process under control. 2 the patient's pulmonary problems and obesity we will run into some problems with him taking care of these wounds as far as being able to do it himself. Will seek home health to see if they can help him somewhat with this and hopefully with the fair wraps and will give him an opportunity to get some compressive therapy in place a little bit easier than trying to wrap him. Patient is completely unable to wrap his legs himself and so we can run and some chronic problems. I have discussed with the patient about the fact that he should not try to sit the legs hanging down. He has some recliners and I have encouraged him that when he is home he needs to keep him up as much as possible try to keep the swelling under control. He states he is unable to get into bed because of his long problems that makes him a panicky whenever he gets his head down too far. I suspect would not have continued problems with his because of his obesity and his long problems with him probably completely continually and get him down. I will can do is encourage him explained to him what situation is what he must do to get better and whether not he can be able to comply that is unclear at this time. Current Visit: Yes Qualifiers: Site of cellulitis of extremity: lower extremity Laterality: unspecified laterality (2) Chronic venous insufficiency Status: Chronic Assessment and plan: Impression: Chronic venous stasis insufficiency with ulceration and blistering and cellulitis Plan: Good wound care with compressive therapy. Current Visit: Yes (3) Obesity Status: Acute Assessment and plan: Impression: Obesity complicating his present cardiopulmonary and leg problems Current Visit: Yes Qualifiers: Obesity type: due to excess calories Obesity classification: adult class 3 (BMI >= 40) (4) Obstructive sleep apnea Status: Chronic Assessment and plan: Impression: Obstructive pulmonary disease Plan: Try to improve the general pulmonary function as this and his obesity is causing him to set up a great deal with the legs hanging down aggravating the presents stasis disease of his lower extremities. Have spoken to him encouraged him the importance of keeping it up at this time. Current Visit: Yes (5) Diabetes Status: Chronic Assessment and plan: Impression: Diabetes adult onset Plan medical management Current Visit: Yes (6) Congestive heart failure Status: Acute Assessment and plan: Impression: History of congestive heart failure. Plan: Medical management Current Visit: Yes Subjective Patient reports: Present: feels better, afebrile Exam - Constitutional Vitals: Period Temp Pulse Resp BP Sys/Pierre Pulse Ox Last 24 Hr 96.5 F-98 F 58-91 16-20 121-149/54-76 94-97 General appearance: mild distress - Head Head exam: Present: normal inspection - ENT ENT exam: Present: normal exam - Neck Neck exam: Present: normal inspection - Respiratory Respiratory exam: Present: rales - Cardiovascular Cardiovascular exam: Present: RRR - GI/Abdominal GI/Abdominal exam: Present: hypoactive bowel sounds, soft - Extremities Exam Extremities exam: Present: other (Both lower extremities swelling is somewhat improved and the ulcers of both legs remained fairly superficial and clean. There remains some degree of drainage at this time.) - Back Exam Back exam: Present: normal inspection - Neurological Exam Neurological exam: Present: alert, oriented X3, CN II-XII intact - Skin Skin exam: Present: normal color, warm, dry Results - Labs CBC & BMP: 05/06/17 05:43 05/09/17 05:03 Lab Results: I have reviewed the past 24 hour labs Quality Measures - VTE Contraindication to Pharmacological VTE Prophylaxis: Already on Theraputic Agent , No Prophylaxis Needed Specialty Discharge - Follow Up or Referrals Follow up with: Amador Hickman MD [Physician] - 05/24/17 (At the wound healing center)
[2017-05-09 12:10] VITALS: BP 134/69
--- NOTE | 2017-05-09 13:20 | Infectious Disease Progress ---
Assessment and Plan (1) Cellulitis Status: Acute Assessment and plan: Cellulitis to both lower extremities which is a result of skin breaks from chronic severe edema. The cellulitis has significantly improved since 3 days ago. Recommendations: Based on the isolated organisms I agree with sending of the patient on oral linezolid with ciprofloxacin. Patient to continue wound care and leg elevation, along with optimization of his medical conditions including the CHF. Discussed with Dr. Smith Current Visit: Yes Qualifiers: Site of cellulitis of extremity: lower extremity Laterality: unspecified laterality (2) Congestive heart failure Status: Acute Current Visit: Yes (3) A-fib Status: Chronic Current Visit: Yes (4) Diabetes Status: Chronic Current Visit: Yes (5) Hyperlipidemia Status: Chronic Current Visit: Yes (6) Hypertension Status: Chronic Current Visit: Yes (7) Obstructive sleep apnea Status: Chronic Current Visit: Yes (8) Acute renal insufficiency Status: Acute Current Visit: Yes Infectious Disease - PN: Subj Interval history: Patient doing fairly okay, he admits that his legs are improved in terms of redness and pain. He has not had any fever or other problems over the weekend. Infectious Disease Exam (PN) - Constitutional Vitals: Temp Pulse Resp BP Pulse Ox 97.5 F L 81 20 134/69 95 05/09/17 12:00 05/09/17 12:00 05/09/17 12:00 05/09/17 12:00 05/09/17 12:00 General appearance: mild distress Exam: General appearance: no acute distress, sitting in chair with legs hanging down - Eye Eye exam: Present: EOMI. no icterus Pupils: Present: NAT - ENT ENT exam: no oral exudates - GI/Abdominal GI/Abdominal exam: normal bowel sounds, soft, non-tender, no organomegaly or mass - Extremities Exam Extremities exam: Still with severe bilateral lower extremity edema but this has improved since last Tuesday, the erythema has also decreased, shallow ulcers with bullae were deroofed. Serous drainage. - Skin Skin exam: no rash Results - Labs CBC & BMP: 05/06/17 05:43 05/09/17 05:03 Lab Results: I have reviewed the past 24 hour labs (Klebsiella, MRShemolyticus, and MRSE cultured from leg wounds) Quality Measures - VTE Contraindication to Pharmacological VTE Prophylaxis: Already on Theraputic Agent , No Prophylaxis Needed Specialty Discharge - Follow Up or Referrals Follow up with: Amador Hickman MD [Physician] - 06/14/17 8:30 am (At the wound healing center for any questions please call [phone])
== END 2017-05-09 14:00 | disposition home health service (06) | DRG 383 ==
LOC: N.ED 15:09 → N.EDINP 17:30 → SUATTDRO 17:30 → N.2E 18:08
PROVIDERS: ADMIT Hospitalist

== ENCOUNTER 2017-05-15 10:35 | Inpatient (IN) ==
[2017-05-15] MEDS ORDERED: CLINDAMYCIN INJ 900 MG in PREMIX 1 EACH IV STA (10:59)
[2017-05-15] MEDS ORDERED: methylPREDNISolone SOD SUC 125 MG/2 ML VIAL IV STA (10:59)
[2017-05-15] MEDS ORDERED: ONDANSETRON 4 MG/2 ML VIAL IV STA (10:59)
[2017-05-15] MEDS ORDERED: FUROSEMIDE 100 MG/10 ML VIAL IV STA (10:59)
[2017-05-15] MEDS ORDERED: KETOROLAC 30 MG/1 ML VIAL IV STA (10:59)
[2017-05-15] MEDS ORDERED: ALBUTEROL/IPRATROPIUM 3 ML NEB RESP TX STA (11:02)
--- NOTE | 2017-05-15 11:08 | Emergency Department Note ---
Arrival - Arrival Chief Complaint: Extremity Problem Stated Complaint: leg pain ED Nursing Triage Note: bilateral leg pain has swelling open sores and weeping fluid chronic leg pain having trouble healing and unable to walk without severe pain and shortness of breath Mode of Arrival: Stretcher Limitations: No Limitations Source: Patient Time Seen by Provider: 05/15/17 10:59 - History of Present Illness HPI Narrative: This 57-year-old white male presents with multiple problems much of which had span months and years. His most significant problem is worsening of his stasis dermatitis over the last month as well as increasing shortness of breath, persistent wheeze, and dry cough over the same timeframe. The patient likewise complains bitterly of advancing DJD of the knees which has been progressive over the past 5 years. Associated with these problems has been very labile blood sugars as well. As with any respiratory situation this patient also has complaints of intermittent chest pain retrosternally and does have a history of ischemic heart disease and congestive failure. Likewise in regard to his cardiac status he is treated for atrial fibrillation and is on chronic anticoagulation. Although he describes years of respiratory problems., He has never been diagnosed with asthma or any significant respiratory problem. The patient complains of significant dyspnea on exertion but is limited in any exertion because of the condition of his legs. At this time he denies chills, fever, nausea, or vomiting. Currently, the patient appears uncomfortable and audibly wheezing. Onset (ago): year(s) (Patient presents with years of problems.) Allergies/Adverse Reactions: Allergies Allergy/AdvReac Type Severity Reaction Status Date / Time No Known Allergies Allergy Verified 05/03/17 15:26 Home Medications: Home Medications Medication Instructions Recorded Confirmed Type Digoxin Tab [Lanoxin Tab] 0.25 mg PO QAM 05/03/17 05/15/17 History Isosorbide Dinitrate 40 mg PO BID 05/03/17 05/15/17 History Lisinopril 40 mg PO QAM 05/03/17 05/15/17 History Melatonin 10 mg PO BEDTIME 05/03/17 05/15/17 History Metoprolol Tartrate 100 mg PO BID W/MEALS 05/03/17 05/15/17 History Sitagliptin Phos/Metformin HCl 1 each PO BID 05/03/17 05/15/17 History [Janumet 50-1,000 mg Tablet] Warfarin [Coumadin] 5 mg PO SUTUTHSA 05/03/17 05/15/17 History dilTIAZem HCl [Diltiazem ER (24 360 mg PO QAM 05/03/17 05/15/17 History hr)] sitaGLIPtin [Januvia] 50 mg PO BID tablet 05/09/17 05/15/17 Rx Insulin Detemir [Levemir] 125 units SUBCUT QAM 05/15/17 05/15/17 History Lovastatin 20 mg PO BEDTIME 05/15/17 05/15/17 History Warfarin [Coumadin] 7.5 mg PO MOWEFR 05/15/17 05/15/17 History Medical,Surgical,& Family Hx - Medical History Cardio: History of: Cardiac Dysrhythmia (a-fib), CHF, CAD, Hypertension Neurology: History of: Peripheral Neuropathy Endocrine: History of: Diabetes Mellitus (IDDM), Dyslipidemia Respiratory: History of: Asthma, COPD - Surgical History Cardiac Surgeries: Sugical HX of: Cardiac Catheterization Abdominal Surgeries: Surgical HX of: Hernia Repair - Family History Family History: Reports;: Family Diabetes (Grandmother), Family Heart Disease ( Grandmother) - Social History Smoking Status: Current every day smoker Exam Physical Examination: GENERAL: Morbidly obese white male in no acute distress. HEENT: Normocephalic. No trauma. Moist mucous membranes. EOMI. PERRLA. ENT NML NECK: Supple. No adenopathy. CARDIAC: Iregular. No murmurs. Heart rate 93 CHEST: Diffuse anterior expiratory wheezing. No respiratory distress. O2 sat 98% ABDOMEN: Soft. Nontender. Active bowel sounds. EXTREMITIES: No trauma. Crepitation pain on range of motion of both knees. Bilateral stasis dermatitis with superficial cellulitis and early skin breakdown on the left ankle as well as significant calf tenderness and soft Homans sign bilaterally.. SKIN: No diaphoresis. No rash. NEURO: Alert. Neuro intact no focal deficits. Vital Signs: Vital Signs Temperature 98.0 F 05/15/17 10:43 Pulse Rate 95 H 05/15/17 11:08 Respiratory Rate 22 05/15/17 11:08 Blood Pressure 155/93 05/15/17 10:43 O2 Sat by Pulse Oximetry 98 05/15/17 11:08 Course Course Narrative: Upon checking upon the patient's response to medications the patient did not know who I was after after earlier during my interview and exam. This reason he underwent CT scanning. This was after he just had peed on the floor in the exam room. - Reevaluation(s) Reevaluation #1: Advised patient of wisdom of hospitalization to clear up his multiple problems and also address his significant elevation in ammonia - Consultations Consultation #1: Discussed with hospitalist service who will admit for further evaluation treatment. Results - Labs CBC & BMP: 05/15/17 11:35 05/15/17 11:35 Labs: I have reviewed the laboratory and noted the gross normality including the BMP; however, he does demonstrate a severely elevated ammonia. - Impressions EKG atrial fibrillation 94 with normal QRS duration. Right ventricular hypertrophy with nonspecific ST changes with no acute injury pattern noted evidence of old anterior septal ID noted. - Diagnostic Findings Procedure: Chest x-ray: image reviewed by me, report reviewed by me ( Cardiomegaly with pulmonary venous hypertension), CT: image reviewed by me, report reviewed by me (Head: Severe microvascular disease with evidence of old right MCA distribution infarct), Ultrasound: image reviewed by me, report reviewed by me (Bilateral ultrasound reveals no DVT.) Disposition Clinical Impression: Exacerbation asthma, Stasis cellulitis, Elevated ammonia, Morbid obesity Case discussed with: patient Disposition: Still a Patient Condition: Guarded Time of Disposition: 14:51
--- NOTE | 2017-05-15 11:26 | EKG Report ---
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
[2017-05-15] MEDS ORDERED: CLINDAMYCIN INJ 50 ML IV ONE (11:45)
[2017-05-15] MEDS ORDERED: ONDANSETRON 4 MG/2 ML VIAL ONE (11:45)
[2017-05-15] MEDS ORDERED: FUROSEMIDE 20 MG/2 ML VIAL ONE (11:45)
[2017-05-15] MEDS ORDERED: TERBUTALINE 1 MG/1 ML VIAL SUBCUT ONE (11:45)
[2017-05-15] MEDS ORDERED: FUROSEMIDE 40 MG/4 ML VIAL ONE (11:45)
[2017-05-15] MEDS ORDERED: KETOROLAC 30 MG/1 ML VIAL ONE (11:46)
[2017-05-15] MEDS ORDERED: methylPREDNISolone SOD SUC 125 MG/2 ML VIAL ONE (11:46)
[2017-05-15 11:48] LABS: Basophils # 0.1 10*3/uL (0.0-0.2); Basophils % 1.4 % (0.0-0.8); Eosinophils # 0.2 10*3/uL (0.0-0.87); Eosinophils % 2.2 % (0.00-10.9); Hematocrit 45.7 VOL% (42.0-52.0); Hemoglobin 15.3 GM/DL (14.0-18.0); Immature Granulocytes % 0.9 %; Immature Granulocytes Absolute 0.09 #; Mean Corpuscular HGB Conc 33.5 GM/DL (32-36); Mean Corpuscular Hemoglobin 28 PG (27-34); Mean Corpuscular Volume 82.8 FL (87-102); Monocytes # 0.6 10*3/uL (0.11-0.8); Monocytes % 6.1 % (1.7-12.7); Neutrophils # 6.6 10*3/uL (1.4-7.4); Neutrophils % 68.4 % (38.7-73.9); Platelet Count 214 T/CUMM (130-400); Red Blood Count 5.52 MC/CUMM (3.8-5.5); Red Cell Distribution Width 17.3 % (9.3-17.3); White Blood Count 9.6 T/CUMM (4-12)
--- NOTE | 2017-05-15 12:05 | XRay Report ---
2 view chest. Indication: Shortness of breath. The cardiac silhouette is enlarged. The pulmonary vasculature is prominent. There is mild blunting of the left costophrenic angle. Degenerative changes are present within the spinal column. Impression: Mild scarring at the left costophrenic angle. Cardiomegaly with venous congestion. PROCEDURE INTERPRETED AT [facility] DEPARTMENT OF RADIOLOGY Final Report Signed by: Dr. Mary Ortiz
[2017-05-15 12:09] LABS: Apearance,Urine CLEAR (Clear); Bilirubin,Urine Negative (Negative); Blood, Urine Negative (Negative); Glucose,Urine (UA) >=500 mg/dL (Negative); Ketones,Urine Negative (Negative); Mucus,Urine Occasional /LPF (Occasional); Nitrite,Urine Negative (Negative); Protein,Urine 100 MG/DL; RBC,Urine 1 /HPF (0-4); Squamous Epithelial Cell,Urine Occasional /HPF (0-10); Urine Color Yellow (Yellow); Urine Specific Gravity 1.014 (1.001-1.035); Urine Urobilinogen < 2.0 EU/DL (0.2-1.0); WBC,Urine <1 /HPF (0-6)
[2017-05-15 12:12] LABS: Alanine Aminotransferase 35 U/L (16-61); Albumin 3.4 G/DL (3.4-5.0); Alkaline Phosphatase 89 U/L (45-117); Aspartate Amino Transferase 12 U/L (0-37); Blood Urea Nitrogen 12 MG/DL (7-18); Calcium 9.3 MG/DL (8.5-10.1); Glucose 197 MG/DL (74-106); Osmolality,Calculated 283.4 MOS/KG (273-304); Potassium 4.4 MMOL/L (3.5-5.1); Sodium 140 MMOL/L (136-145); Total Protein 7.6 G/DL (6.4-8.3); Troponin I Only < 0.015 NG/ML (0.00-0.045)
--- NOTE | 2017-05-15 12:20 | Ultrasound Report ---
Bilateral lower extremity venous Doppler with bunch scale, Spectral Doppler and color-flow analysis performed and interpreted. Indication: Leg pain and swelling. Scanning over both common femoral veins, superficial femoral veins, greater saphenous veins and popliteal veins demonstrates normal compressibility, color flow, and augmentation. Impression: No evidence of DVT seen in either lower extremity. The Ultrasound images were captured and stored. PROCEDURE INTERPRETED AT [facility] DEPARTMENT OF RADIOLOGY Final Report Signed by: Dr. Mary Ortiz
[2017-05-15 12:22] LABS: INR 1.2; PT Patient Result 12.5 SECS; Partial Thromboplastin Time 31.5 SECS (0-40)
[2017-05-15] MEDS: TERBUTALINE 1 MG/1 ML VIAL SUBCUT SCH ×5 (12:25→18:28)
--- NOTE | 2017-05-15 13:58 | CT Report ---
CT of the head without contrast. Indication: Confusion. There is generalized prominence of the ventricles and sulci consistent with atrophy. There is calcific plaque within the vertebral arteries and intracranial internal carotid arteries. There is a remote infarct in the right MCA distribution. There are findings of low density in the periventricular white matter, moderately severe, most suggestive of chronic microvascular ischemia. No mass effect or midline shift. No evidence of acute hemorrhage. The calvarium is intact. There is mucosal thickening within the ethmoid sinuses. Impression: 1. Generalized atrophy. 2. Remote right MCA infarct. 3. Moderately severe findings of chronic microvascular ischemia. 4. Sinus disease. The CT exam was performed using one or more of the following dose reduction techniques: Automated exposure control, adjustment of the mA and/or kV according to patient size, or use of iterative reconstruction technique. PROCEDURE INTERPRETED AT [facility] DEPARTMENT OF RADIOLOGY Final Report Signed by: Dr. Mary Ortiz
[2017-05-15 14:37] LABS: ABG Base Excess -0.1 MMOL/L (-2.5-2.5); ABG HCO3 24.3 MMOL/L (20-26); ABG Oxygen Saturation 93.8 % (95-100); ABG PCO2 44.7 MM HG (35-48); ABG PH 7.367 (7.35-7.45); ABG PO2 70.7 MM HG (80-95)
[2017-05-15] MEDS ORDERED: LACTULOSE 20 GM/30 ML UDCUP PO STA (15:52)
[2017-05-15] MEDS ORDERED: METOPROLOL TARTRATE 5 MG/5 ML VIAL IV STA (16:07)
--- NOTE | 2017-05-15 16:16 | Hospitalist History & Physical ---
Assessment and Plan (1) Cellulitis Status: Acute Assessment and plan: Admit as inpatient. Consult wound care. Start IV antibiotics. Wound cultures. CBC daily. Blood cultures obtained. Current Visit: Yes Qualifiers: Site of cellulitis of extremity: lower extremity Laterality: unspecified laterality (2) Obesity Status: Chronic Current Visit: No (3) A-fib Status: Chronic Assessment and plan: EKG shows afib. Restart home meds. Pt. is on blood thinner. Check pt.inr in am. Current Visit: No (4) Diabetes Status: Acute Assessment and plan: Accuchecks achs. SSI. Current Visit: No (5) Medical non-compliance Status: Acute Current Visit: No (6) Congestive heart failure Status: Acute Assessment and plan: BNP 91 Current Visit: No History of Present Illness Chief complaint: leg pain History of present illness: Mr. Montelongo is a 57 year old white male with history of CHF, hypertension, CAD with stents, failure, diabetes, dyslipidemia, asthma, COPD, JOSE A, and peripheral neuropathy that comes into the ED today with complaints of bilateral leg pain and increasing shortness of breath on exertion. Pt. was recently discharged from our service on 05/09/17 after a 6 day stay for the same complaint. During that stay, patient was treated and evaluated by multiple services including infectious disease. Pt was discharged home with on linezolid and ciprofloxacin. Pt. states he felt better initially but then his legs "got bad". Pt. reports being seen by someone at a clinic and reports that home health was supposed to come but he never got a visit. Pt. denies fever, chills, or nausea/vomiting. Pt. does complain of increasing shortness of breath. On exam in ED, pt noted to have elevated ammonia level. Cardiomegaly with venous congestion revealed on CXR. Pt is also in afib and hypertensive. Pt.'s case was discussed with ER physician and Dr. Beltran hospitalist and the patient was accepted onto our service. Home meds have been reviewed and reconciled. Home Medications Medication Instructions Recorded Confirmed Type Digoxin Tab [Lanoxin Tab] 0.25 mg PO QAM 05/03/17 05/15/17 History Isosorbide Dinitrate 40 mg PO BID 05/03/17 05/15/17 History Lisinopril 40 mg PO QAM 05/03/17 05/15/17 History Melatonin 10 mg PO BEDTIME 05/03/17 05/15/17 History Metoprolol Tartrate 100 mg PO BID W/MEALS 05/03/17 05/15/17 History Sitagliptin Phos/Metformin HCl 1 each PO BID 05/03/17 05/15/17 History [Janumet 50-1,000 mg Tablet] Warfarin [Coumadin] 5 mg PO SUTUTHSA 05/03/17 05/15/17 History dilTIAZem HCl [Diltiazem ER (24 360 mg PO QAM 05/03/17 05/15/17 History hr)] sitaGLIPtin [Januvia] 50 mg PO BID tablet 05/09/17 05/15/17 Rx Insulin Detemir [Levemir] 125 units SUBCUT QAM 05/15/17 05/15/17 History Lovastatin 20 mg PO BEDTIME 05/15/17 05/15/17 History Warfarin [Coumadin] 7.5 mg PO MOWEFR 05/15/17 05/15/17 History Allergies Allergy/AdvReac Type Severity Reaction Status Date / Time No Known Allergies Allergy Verified 05/03/17 15:26 Medical,Surgical,& Family Hx - Medical History Cardio: History of: Cardiac Dysrhythmia (a-fib), CHF, CAD, Hypertension Neurology: History of: Peripheral Neuropathy Endocrine: History of: Diabetes Mellitus (IDDM), Dyslipidemia Respiratory: History of: Asthma, COPD - Surgical History Cardiac Surgeries: Sugical HX of: Cardiac Catheterization Abdominal Surgeries: Surgical HX of: Hernia Repair - Family History Family History: Reports;: Family Diabetes (Grandmother), Family Heart Disease ( Grandmother) - Social History Smoking Status: Current every day smoker Frequency of Alcohol Use: None Type of Drug Use: None Marital Status: Single Lives With:: Alone Functional capacity: uses cane/walker 12 point system: reviewed and no additional remarkable complaints except as stated Exam - Constitutional Vitals: Period Temp Pulse Resp BP Sys/Pierre Pulse Ox Last 24 Hr 98.0 F 93-98 19-22 155/93 96-98 General appearance: no acute distress, morbidly obese - Head Head exam: Present: normal inspection, normocephalic - Eye Eye exam: Present: EOMI Pupils: Present: NAT - ENT ENT exam: Present: normal exam - Respiratory Respiratory exam: Present: clear to auscultation bilaterally. Absent: wheezes - Cardiovascular Cardiovascular exam: Present: irregular rhythm - GI/Abdominal GI/Abdominal exam: Present: normal bowel sounds, soft. Absent: tenderness - Extremities Exam Extremities exam: Present: normal capillary refill, edema (BLE). Absent: calf tenderness - Neurological Exam Neurological exam: Present: alert, oriented X3 - Psychiatric Psychiatric exam: Present: normal affect, normal mood - Skin Skin exam: Present: normal color, warm, other (pt's skin to BLE is slightly reddened and warm to touch. He has bilateral blisters with weeping ) Results - Labs CBC & BMP: 05/15/17 11:35 05/15/17 11:35 Lab Results: I have reviewed the past 24 hour labs
[2017-05-15] MEDS ORDERED: LACTULOSE 20 GM/30 ML UDCUP ONE (16:29)
[2017-05-15] MEDS ORDERED: traMADol 50 MG TABLET ONE (16:30)
[2017-05-15] MEDS ORDERED: METOPROLOL TARTRATE 5 MG/5 ML VIAL IV ONE (16:30)
[2017-05-15] MEDS ORDERED: traMADol 50 MG TABLET PO STA (17:10)
[2017-05-15] MEDS ORDERED: ACETAMINOPHEN 325 MG TABLET PO PRN (17:48)
[2017-05-15] MEDS ORDERED: ONDANSETRON 4 MG/2 ML VIAL IV PRN (17:48)
[2017-05-15] MEDS: MEROPENEM 1,000 MG in SODIUM CHLORIDE 0.9% 100 ML IV SCH (18:43)
[2017-05-15] MEDS: METOPROLOL TARTRATE 100 MG TABLET PO SCH (18:43)
[2017-05-15] MEDS: WARFARIN 5 MG TABLET PO SCH (18:43)
[2017-05-15] MEDS: ISOSORBIDE DINITRATE 20 MG TABLET PO SCH (20:13)
[2017-05-15] MEDS: MELATONIN 3 MG TABLET PO SCH (20:14)
[2017-05-15] MEDS: LOVASTATIN 20 MG TABLET PO SCH (20:14)
[2017-05-15] MEDS: VANCOMYCIN INJ 2,000 MG in SODIUM CHLORIDE 0.9% 500 ML IV SCH (20:16)
[2017-05-16] MEDS: VANCOMYCIN INJ 2,000 MG in SODIUM CHLORIDE 0.9% 500 ML IV SCH ×2 (03:02→10:18)
[2017-05-16] MEDS: MEROPENEM 1,000 MG in SODIUM CHLORIDE 0.9% 100 ML IV SCH (05:13)
[2017-05-16 06:45] LABS: Basophils % 0.2 % (0.0-0.8); Hematocrit 40.3 VOL% (42.0-52.0); Hemoglobin 13.5 GM/DL (14.0-18.0); Immature Granulocytes % 1.1 %; Immature Granulocytes Absolute 0.09 #; Lymphocytes # 0.8 10*3/uL (1.4-4.0); Lymphocytes % 9.2 % (21.2-54.2); Mean Corpuscular HGB Conc 33.5 GM/DL (32-36); Mean Corpuscular Hemoglobin 28 PG (27-34); Mean Corpuscular Volume 83.1 FL (87-102); Mean Platelet Volume 10.2 FL (9.6-12.0); Monocytes # 0.5 10*3/uL (0.11-0.8); Monocytes % 5.5 % (1.7-12.7); Neutrophils # 7.2 10*3/uL (1.4-7.4); Platelet Count 207 T/CUMM (130-400); Red Blood Count 4.85 MC/CUMM (3.8-5.5); Red Cell Distribution Width 16.7 % (9.3-17.3); White Blood Count 8.5 T/CUMM (4-12)
[2017-05-16 07:31] LABS: Calcium 8.5 MG/DL (8.5-10.1); Magnesium 2.1 MG/DL (1.8-2.4); Potassium 4.8 MMOL/L (3.5-5.1); Risk Ratio 5.03; Thyroid Stimulating Hormone 0.338 uIU/ml (0.358-3.74); VLDL CHOLESTEROL 25.4 MG/DL
[2017-05-16 08:21] LABS: Albumin 2.8 G/DL (3.4-5.0); Bilirubin,Total 0.4 MG/DL (0.2-1.0); Calcium 8.3 MG/DL (8.5-10.1); Phosphorous 3.5 MG/DL (2.5-4.9); Potassium 4.8 MMOL/L (3.5-5.1); Total Protein 6.6 G/DL (6.4-8.3)
[2017-05-16] MEDS: ISOSORBIDE DINITRATE 20 MG TABLET PO SCH ×2 (09:07→20:40)
[2017-05-16] MEDS: PANTOPRAZOLE 40 MG TABLET PO SCH (09:08)
[2017-05-16] MEDS: LISINOPRIL 20 MG TABLET PO SCH (09:08)
[2017-05-16] MEDS: METOPROLOL TARTRATE 100 MG TABLET PO SCH ×2 (09:09→16:34)
[2017-05-16] MEDS: DILTIAZEM CD 180 MG CAPSULE PO SCH (09:09)
[2017-05-16] MEDS: DIGOXIN 0.25 MG TABLET PO SCH (09:10)
--- NOTE | 2017-05-16 09:18 | Hospitalist Progress Note ---
Assessment and Plan (1) Cellulitis Status: Acute Assessment and plan: Patient encouraged to keep lower extremities elevated at all times. Wound care has been consulted to evaluate and treat the chronic lower extremity wounds. We will continue IV antibiotic coverage as previously ordered. We will consult infectious disease to evaluate and treat. Current Visit: Yes Qualifiers: Site of cellulitis of extremity: lower extremity Laterality: unspecified laterality (2) Chronic anticoagulation Status: Chronic Assessment and plan: The patient is chronically anticoagulated with warfarin. PT and INR was noted at 1.2/12.5 on yesterday. We will obtain stat PT/INR. We will consult pharmacy to manage Coumadin therapy. Current Visit: No (3) Congestive heart failure Status: Acute Assessment and plan: Chest x-ray at the time of admission was significant for cardiomegaly with venous congestion. BNP on yesterday was noted at 91. Echocardiogram on 2016 reported normal left ventricular ejection fraction at greater than 55%. The patient was diuresed on yesterday. We will diurese today and recheck chest x-ray in a.m. Current Visit: No (4) Diabetes Status: Acute Assessment and plan: Hemoglobin A1c was noted at 8.5. Upon review of glucose levels overnight, the patient has remained consistently elevated. We will start Accu-Cheks with sliding scale coverage. Upon review of the patient's medical record, the patient had been previously receiving Levemir 125 units daily. We will start Levemir 50 units twice daily. We will monitor blood glucose levels closely. Current Visit: No Hospitalist: Subjective Interval history: Patient seen and examined; chart reviewed. No significant overnight events reported per staff. Sleep medicine consultation has been requested for recommendations regarding CPAP use for Exam - Constitutional Vitals: Period Temp Pulse Resp BP Sys/Pierre Pulse Ox Last 24 Hr 97.3 F-98.1 F 68-99 18-22 139-172/75-93 92-98 General appearance: morbidly obese - Head Head exam: Present: normal inspection, normocephalic, atraumatic - Eye Eye exam: Present: EOMI. Absent: conjunctival injection Pupils: Present: NAT, normal accommodation - ENT ENT exam: Present: normal exam, normal external ear exam, normal oropharynx - Neck Neck exam: Present: normal inspection. Absent: lymphadenopathy, meningismus, tenderness, thyromegaly - Respiratory Respiratory exam: Present: clear to auscultation bilaterally. Absent: rales, rhonchi, stridor, wheezes - Cardiovascular Cardiovascular exam: Present: regular rate and rhythm. Absent: carotid bruit, diastolic murmur, gallop, JVD, rubs, systolic murmur - GI/Abdominal GI/Abdominal exam: Present: normal bowel sounds - Extremities Exam Extremities exam: Present: normal capillary refill, edema, other (compression dressings noted to bilateral lower extremities) - Back Exam Back exam: Present: normal inspection - Neurological Exam Neurological exam: Present: alert, oriented X3, CN II-XII intact - Psychiatric Psychiatric exam: Present: normal affect, normal mood - Skin Skin exam: Present: normal color, warm, dry Results - Labs CBC & BMP: 05/16/17 05:44 05/16/17 05:44 Lab Results: I have reviewed the past 24 hour labs Quality Measures - VTE Contraindication to Mechanical VTE Prophylaxis: Vascular Ulceration
[2017-05-16 09:34] LABS: INR 1.1; PT Patient Result 12.2 SECS
[2017-05-16] MEDS ORDERED: FUROSEMIDE 40 MG/4 ML VIAL IV ONE (09:45)
[2017-05-16] MEDS ORDERED: GLUCAGON 1 MG VIAL IM PRN (12:53)
[2017-05-16] MEDS ORDERED: DEXTROSE 50% 25 GM/50 ML VIAL IV PRN (12:53)
--- NOTE | 2017-05-16 13:40 | Infectious Disease Consult ---
Assessment and Plan (1) Blister of lower extremity without infection Status: Acute Assessment and plan: Patient has shallow ulcerations to both legs associated with blisters that were present and got removed. Currently there is no evidence clinically of remaining cellulitis. Recommendations: Discontinue vancomycin and meropenem. Continue with local wound care to legs. Patient encouraged to keep legs elevated due to the significant swelling. Thank you very much for the consult. Call again as needed. Current Visit: No (2) Diabetes Status: Acute Current Visit: No (3) Lower extremity edema Status: Acute Current Visit: No (4) A-fib Status: Chronic Current Visit: No (5) Hypertension Status: Chronic Current Visit: No (6) Obesity Status: Chronic Current Visit: No (7) Obstructive sleep apnea Status: Chronic Current Visit: No History of Present Illness Chief complaint: Cellulitis History of present illness: Mr. Montelongo is a 57 year old male who was up until just last week. He was admitted for cellulitis of both legs. He has multiple comorbid including CHF with chronic swelling of his legs. Multiple organisms were cultured from the wounds in his legs and he was sent home on linezolid and ciprofloxacin. Patient says he did well and the leg swelling has improved and the redness has just about resolved. He came back to hospital because of significant pain in the knees preventing him from getting about at home. He lives at home alone and is having difficulty caring for himself. He denies fever or other constitutional symptoms since discharge home. Home Medications Medication Instructions Recorded Confirmed Type Digoxin Tab [Lanoxin Tab] 0.25 mg PO QAM 05/03/17 05/15/17 History Isosorbide Dinitrate 40 mg PO BID 05/03/17 05/15/17 History Lisinopril 40 mg PO QAM 05/03/17 05/15/17 History Melatonin 10 mg PO BEDTIME 05/03/17 05/15/17 History Metoprolol Tartrate 100 mg PO BID W/MEALS 05/03/17 05/15/17 History Sitagliptin Phos/Metformin HCl 50 mg PO BID 05/03/17 05/15/17 History [Janumet 50-1,000 mg Tablet] Warfarin [Coumadin] 5 mg PO SUTUTHSA 05/03/17 05/15/17 History dilTIAZem HCl [Diltiazem ER (24 360 mg PO QAM 05/03/17 05/15/17 History hr)] Furosemide 40 mg PO DAILY 05/15/17 05/15/17 History Insulin Detemir [Levemir] 125 units SUBCUT QAM 05/15/17 05/15/17 History Lovastatin 20 mg PO BEDTIME 05/15/17 05/15/17 History Warfarin [Coumadin] 7.5 mg PO MOWEFR 05/15/17 05/15/17 History Allergies Allergy/AdvReac Type Severity Reaction Status Date / Time No Known Allergies Allergy Verified 05/03/17 15:26 12 point system: reviewed and no additional remarkable complaints except as stated (Exertional dyspnea, rest of compressive review of systems negative apart for was mentioned in HPI) Medical,Surgical,& Family Hx - Medical History Cardio: History of: Cardiac Dysrhythmia (a-fib), CHF, CAD, Hypertension Psychological: History of: Anxiety Disorders, Depression No history of: Previous Suicide Attempt Neurology: History of: Peripheral Neuropathy Endocrine: History of: Diabetes Mellitus (IDDM), Dyslipidemia Respiratory: History of: Asthma, COPD - Surgical History Cardiac Surgeries: Sugical HX of: Cardiac Catheterization Thoracic Surgeries: Patient denies;: Organ Transplant Neurologic Surgeries: Patient denies: Neurologic Surgery Abdominal Surgeries: Surgical HX of: Hernia Repair - Family History Family History: Reports;: Family Diabetes (Grandmother), Family Heart Disease ( Grandmother) - Social History Smoking Status: Current every day smoker Frequency of Alcohol Use: None Type of Drug Use: Marijuana Infectious Disease Exam H&P - Constitutional Vitals: Vital Signs Temp Pulse Resp BP Pulse Ox 97 F L 87 20 123/72 91 L 05/16/17 12:00 05/16/17 12:00 05/16/17 12:00 05/16/17 12:00 05/16/17 12:00 Intake and Output 05/15/17 05/16/17 05/16/17 23:59 07:59 15:59 Intake Total 1900 / 1900 1580 / 1580 Output Total 600 / 600 Balance 1900 / 1900 980 / 980 Intake: IV 100 / 100 1100 / 1100 Merrem 1,000 mg In Ns 100 100 / 100 100 / 100 ml @ 200 mls/hr IV Q12H [facility] Rx#:[id number] Vancomycin Inj 1,000 mg 1000 / 1000 In Ns 500 ml @ 250 mls/hr IV Q8H [facility] Rx#: [id number] Oral 1800 / 1800 480 / 480 Output: Urine 600 / 600 Other: # Voids 2 Weight 151.046 kg Exam: General: Patient relatively comfortable, sitting in the chair HEENT: Mucous membranes pink and moist, anicteric acyanotic, NAT, no oral exudates Neck: Supple, no thyroid gland enlargement Respiratory system: Breath sounds vesicular, no crepitations or wheezes Cardiovascular: Normal S1 and S2, no murmurs appreciated Abdomen: Normal bowel sounds, very obese abdomen with edema of dependent aspect of abdominal wall, unable to appreciate organomegaly or mass due to the obesity Genitourinary: No suprapubic pain Extremities: Quite significant bilateral lower extremity edema however it has improved a bit since last week. The has been resolution of the erythema and hyperemia. He still has some shallow ulcerations on both legs with serous drainage, no purulence, no foul odor Skin: No rash Reports - Labs CBC & BMP: 05/16/17 05:44 05/16/17 05:44 Labs: Laboratory Results - last 24 hr 05/15/17 05/15/17 05/16/17 13:45 14:22 05:44 WBC 8.5 RBC 4.85 Hgb 13.5 L Hct 40.3 L MCV 83.1 L MCH 28 MCHC 33.5 RDW 16.7 Plt Count 207 MPV 10.2 Neut % (Auto) 84.0 H Lymph % (Auto) 9.2 L Mcdonough % (Auto) 5.5 Eos % (Auto) 0.0 Baso % (Auto) 0.2 Neut # (Auto) 7.2 Lymph # (Auto) 0.8 L Mcdonough # (Auto) 0.5 Eos # (Auto) 0.0 Baso # (Auto) 0.0 Immature Gran % 1.1 Nucleated RBC % 0.0 Immature Gran # 0.09 Nucleated RBCs # 0.00 Immature Plt Fraction 0.0 INR PT Patient/Control Mix ABG pH 7.367 ABG pCO2 44.7 ABG pO2 70.7 L ABG HCO3 24.3 ABG Total CO2 22.0 L ABG O2 Saturation 93.8 L ABG Base Excess -0.1 Sodium Potassium Chloride Carbon Dioxide Anion Gap BUN Creatinine GFR Calculation BUN/Creatinine Ratio Glucose POC Glucose Hemoglobin A1c Calculated Osmolality Calcium Phosphorus Magnesium Total Bilirubin AST ALT Alkaline Phosphatase Ammonia 81 H Total Protein Albumin Globulin Albumin/Globulin Ratio Triglycerides Cholesterol LDL Cholesterol VLDL Cholesterol HDL Cholesterol Heart Disease Risk Ratio Free T4 TSH 3rd Generation 05/16/17 05/16/17 05/16/17 05:44 05:44 05:44 WBC RBC Hgb Hct MCV MCH MCHC RDW Plt Count MPV Neut % (Auto) Lymph % (Auto) Mcdonough % (Auto) Eos % (Auto) Baso % (Auto) Neut # (Auto) Lymph # (Auto) Mcdonough # (Auto) Eos # (Auto) Baso # (Auto) Immature Gran % Nucleated RBC % Immature Gran # Nucleated RBCs # Immature Plt Fraction INR PT Patient/Control Mix ABG pH ABG pCO2 ABG pO2 ABG HCO3 ABG Total CO2 ABG O2 Saturation ABG Base Excess Sodium 136 Potassium 4.8 Chloride 101 Carbon Dioxide 26 Anion Gap 13.8 BUN 18 Creatinine 0.90 GFR Calculation 143 BUN/Creatinine Ratio 20.00 Glucose 284 H POC Glucose Hemoglobin A1c 8.5 H Calculated Osmolality 283.0 Calcium 8.5 Phosphorus Magnesium 2.1 Total Bilirubin AST ALT Alkaline Phosphatase Ammonia Total Protein Albumin Globulin Albumin/Globulin Ratio Triglycerides 127 Cholesterol 176 LDL Cholesterol 128.0 VLDL Cholesterol 25.4 HDL Cholesterol 35 L Heart Disease Risk Ratio 5.03 Free T4 0.93 TSH 3rd Generation 0.338 L 05/16/17 05/16/17 05/16/17 05:44 05:44 13:06 WBC RBC Hgb Hct MCV MCH MCHC RDW Plt Count MPV Neut % (Auto) Lymph % (Auto) Mcdonough % (Auto) Eos % (Auto) Baso % (Auto) Neut # (Auto) Lymph # (Auto) Mcdonough # (Auto) Eos # (Auto) Baso # (Auto) Immature Gran % Nucleated RBC % Immature Gran # Nucleated RBCs # Immature Plt Fraction INR 1.1 PT Patient/Control Mix 12.2 ABG pH ABG pCO2 ABG pO2 ABG HCO3 ABG Total CO2 ABG O2 Saturation ABG Base Excess Sodium 136 Potassium 4.8 Chloride 102 Carbon Dioxide 26 Anion Gap 12.8 BUN 18 Creatinine 0.90 GFR Calculation 143 BUN/Creatinine Ratio 20.00 Glucose 277 H POC Glucose 338 H Hemoglobin A1c Calculated Osmolality 283.0 Calcium 8.3 L Phosphorus 3.5 Magnesium 2.0 Total Bilirubin 0.40 AST 8 ALT 31 Alkaline Phosphatase 73 Ammonia Total Protein 6.6 Albumin 2.8 L Globulin 3.8 H Albumin/Globulin Ratio 0.7 L Triglycerides Cholesterol LDL Cholesterol VLDL Cholesterol HDL Cholesterol Heart Disease Risk Ratio Free T4 TSH 3rd Generation - Reports Microbiology: Microbiology 05/15/17 11:38 Blood Culture - Preliminary Blood No growth at 1 day 05/15/17 11:35 Blood Culture - Preliminary Blood No growth at 1 day 05/15/17 18:28 Wound Culture - Preliminary Leg - Left Lower Gram Negative Rods
[2017-05-16] MEDS: INSULIN REGULAR 100 UNIT/ML SUBCUT SCH ×3 (14:05→20:39)
[2017-05-16] MEDS: WARFARIN 7.5 MG TABLET PO SCH (15:35)
--- NOTE | 2017-05-16 16:48 | Sleep Medicine Progress Note ---
Assessment and Plan (1) Obstructive sleep apnea Status: Chronic Assessment and plan: Patient will be continued on auto titration CPAP for his obstructive sleep apnea. Sleep techs will help with mask fit and instructions on usage of CPAP to aid with compliance. Current Visit: No Sleep Medicine Subjective Interval history: This patient had just recently been seen in sleep consultation. He had home sleep testing done while hospitalized and was found to have severe obstructive sleep apnea. He was prescribed auto titration CPAP at discharge. He did receive a CPAP machine through a local [employer] company. The patient states that he has barely used it. He states that he really did not understand how to use it and that he got poor instruction from the DME provider. However, this patient had been familiar with CPAP in the past. He is used CPAP in the past and was familiar with it from his hospital stay last week. We will get him a CPAP machine to use while he is here. He did not bring his with him. We will work with him on his mask fit and try to encourage him to be compliant with therapy. He has been readmitted for more swelling in his lower extremities after hospitalization last week for cellulitis. Exam (Progress Note) - Constitutional Vitals: Period Temp Pulse Resp BP Sys/Pierre Pulse Ox Last 24 Hr 96.4 F-98.1 F 68-87 18-20 123-172/72-93 91-100 Exam: He is alert and responsive in no acute distress. HEENT unremarkable. He has class IV Mallampati exam. Neck supple without adenopathy or thyromegaly. Chest with fair air movement no significant wheeze rhonchi. Cardiac exam reveals a regular rhythm without murmur or gallop. Abdomen obese nontender without palpable hepatosplenomegaly or mass. Extremities with chronic edema and cellulitic changes with an open wound on the left lower leg. Neurologically , he is grossly intact. Results - Labs CBC & BMP: 05/16/17 05:44 05/16/17 05:44 Lab Results: I have reviewed the past 24 hour labs
[2017-05-16] MEDS: INSULIN GLARGINE 100 UNIT/ML SUBCUT SCH (20:39)
[2017-05-16] MEDS: LOVASTATIN 20 MG TABLET PO SCH (20:40)
[2017-05-16] MEDS: MELATONIN 3 MG TABLET PO SCH (20:40)
--- NOTE | 2017-05-17 06:44 | Physician Query Form ---
CLICK EDIT DOCUMENT TO SELECT QUERY ANSWER --> OK --> SIGN Desiree Purdy RN, CCDS Certified Clinical Process Engineering Manager W) [phone] (f) [phone] [email or web address] PROVIDERS: Make your selection(s) from the choices in EACH section by typing an "x" and enter comments in the comment section. Please use your independent medical judgment in providing your response. This request does not imply that any particular answer is desired or expected. CLINICAL INDICATORS: (Providers should not edit this section) The medical record indicates that the patient was admitted with Stasis Ulceration of the legs, per Infectious Disease "no evidence clinically of remaining cellulitis" and the Vancomycin was stopped. As the attending MD can you please clarify the level of the ulcerations? Based on the above, could you clarify the appropriate diagnosis, if significant , that supports the above abnormalities and additional evaluation, monitoring, and/or treatment rendered: ( ) Fat layer exposed ( ) Necrosis of bone ( ) Necrosis of Muscle ( X) Skin breakdown only ( ) Other, please specify: ( ) Clinically unable to determine COMMENTS: PLEASE ALSO DOCUMENT RESPONSE IN PROGRESS NOTES AND/OR DISCHARGE SUMMARY Use of terms such as suspected, likely, or probable (associated with a specific diagnosis that is being evaluated, monitored, or treated as if it exists) are acceptable and can be restated in the discharge summary if not ruled out. MTDD
--- NOTE | 2017-05-17 06:47 | Physician Query Form ---
CLICK EDIT DOCUMENT TO SELECT QUERY ANSWER --> OK --> SIGN Desiree Purdy RN, CCDS Certified Clinical Employee Benefits Director W) [phone] (f) [phone] [email or web address] PROVIDERS: Make your selection(s) from the choices in EACH section by typing an "x" and enter comments in the comment section. Please use your independent medical judgment in providing your response. This request does not imply that any particular answer is desired or expected. CLINICAL INDICATORS: (Providers should not edit this section) The medical record indicates that the patient was admitted with Stasis Ulceration of the legs, acute CHF is mentioned with BNP of 91#, and the patient was treated with IV Lasix. Please provide further specificity regarding CHF. ACUITY: ( ) Acute (X ) Chronic ( ) Acute on Chronic ( ) Clinically unable to determine TYPE: ( ) Systolic (HFrEF - heart failure with reduced systolic function/EF) (X ) Diastolic (HFpEF - heart failure with preserved systolic function/EF) ( ) Combined Systolic/Diastolic ( ) Other, please specify: ( ) Clinically unable to determine ( ) Past Medical History of Systolic CHF (X ) Past Medical History of Diastolic CHF ( ) Clinically unable to determine COMMENTS: PLEASE ALSO DOCUMENT RESPONSE IN PROGRESS NOTES AND/OR DISCHARGE SUMMARY Use of terms such as suspected, likely, or probable (associated with a specific diagnosis that is being evaluated, monitored, or treated as if it exists) are acceptable and can be restated in the discharge summary if not ruled out. MTDD
[2017-05-17 06:56] LABS: Basophils # 0.1 10*3/uL (0.0-0.2); Basophils % 1.2 % (0.0-0.8); Eosinophils # 0.2 10*3/uL (0.0-0.87); Eosinophils % 2.2 % (0.00-10.9); Hemoglobin 13.9 GM/DL (14.0-18.0); Immature Granulocytes % 0.8 %; Immature Granulocytes Absolute 0.08 #; Lymphocytes # 2.9 10*3/uL (1.4-4.0); Lymphocytes % 30.1 % (21.2-54.2); Mean Corpuscular HGB Conc 33.1 GM/DL (32-36); Mean Corpuscular Hemoglobin 28 PG (27-34); Mean Platelet Volume 10.1 FL (9.6-12.0); Monocytes # 0.7 10*3/uL (0.11-0.8); Neutrophils # 5.6 10*3/uL (1.4-7.4); Neutrophils % 58.7 % (38.7-73.9); Platelet Count 202 T/CUMM (130-400); White Blood Count 9.5 T/CUMM (4-12)
[2017-05-17 07:06] LABS: INR 1.5; PT Patient Result 15.8 SECS
[2017-05-17 07:29] LABS: Calcium 8.6 MG/DL (8.5-10.1); Magnesium 2.2 MG/DL (1.8-2.4); Osmolality,Calculated 284.5 MOS/KG (273-304); Potassium 4.3 MMOL/L (3.5-5.1)
[2017-05-17 07:32] LABS: Albumin 2.9 G/DL (3.4-5.0); Bilirubin,Total 0.8 MG/DL (0.2-1.0); Calcium 8.5 MG/DL (8.5-10.1); Magnesium 2.3 MG/DL (1.8-2.4); Osmolality,Calculated 286.4 MOS/KG (273-304); Phosphorous 2.5 MG/DL (2.5-4.9); Potassium 4.4 MMOL/L (3.5-5.1); Total Protein 6.5 G/DL (6.4-8.3)
--- NOTE | 2017-05-17 08:45 | Hospitalist Progress Note ---
Assessment and Plan (1) Cellulitis Status: Acute Assessment and plan: Patient encouraged to keep lower extremities elevated at all times. Wound care has been consulted to evaluate and treat the chronic lower extremity wounds. We will continue IV antibiotic coverage as previously ordered. We will consult infectious disease to evaluate and treat. 05/17-we will continue wound care and antibiotic coverage per ID recommendation. The patient has been advised to keep lower extremities elevated at all times. The patient reports issues regarding wound care in the home environment. Case management consultation has been requested to evaluate the patient's home living situation. I feel that the patient will greatly benefit from swing bed placement. We will consult physical therapy and Occupational Therapy to evaluate and treat. Current Visit: Yes Qualifiers: Site of cellulitis of extremity: lower extremity Laterality: unspecified laterality (2) Chronic anticoagulation Status: Chronic Assessment and plan: The patient is chronically anticoagulated with warfarin. PT and INR was noted at 1.2/12.5 on yesterday. We will obtain stat PT/INR. We will consult pharmacy to manage Coumadin therapy. 05/17-PT/INR noted at 1.5/15.8. Pharmacy to manage Coumadin dose. Current Visit: No (3) Congestive heart failure Status: Acute Assessment and plan: Chest x-ray at the time of admission was significant for cardiomegaly with venous congestion. BNP on yesterday was noted at 91. Echocardiogram on 2016 reported normal left ventricular ejection fraction at greater than 55%. The patient was diuresed on yesterday. We will diurese today and recheck chest x-ray in a.m. Current Visit: No (4) Diabetes Status: Acute Assessment and plan: Hemoglobin A1c was noted at 8.5. Upon review of glucose levels overnight, the patient has remained consistently elevated. We will start Accu-Cheks with sliding scale coverage. Upon review of the patient's medical record, the patient had been previously receiving Levemir 125 units daily. We will start Levemir 50 units twice daily. We will monitor blood glucose levels closely. Current Visit: No Hospitalist: Subjective Interval history: Patient seen and examined; chart reviewed. No significant overnight events reported per staff. Case management consultation has been requested for possible swing bed placement of discharge. Exam - Constitutional Vitals: Period Temp Pulse Resp BP Sys/Pierre Pulse Ox Last 24 Hr 96.4 F-97.7 F 68-87 18-20 117-168/67-93 91-97 General appearance: morbidly obese - Head Head exam: Present: normal inspection, normocephalic, atraumatic - Eye Eye exam: Present: EOMI. Absent: conjunctival injection Pupils: Present: NAT, normal accommodation - ENT ENT exam: Present: normal exam, normal external ear exam, normal oropharynx - Neck Neck exam: Present: normal inspection. Absent: lymphadenopathy, meningismus, tenderness, thyromegaly - Respiratory Respiratory exam: Present: clear to auscultation bilaterally. Absent: rales, rhonchi, stridor, wheezes - Cardiovascular Cardiovascular exam: Present: bradycardia, regular rate and rhythm. Absent: carotid bruit, diastolic murmur, gallop, irregular rhythm, rubs, systolic murmur - GI/Abdominal GI/Abdominal exam: Present: normal bowel sounds, soft - Extremities Exam Extremities exam: Present: normal capillary refill, edema (+3 edema noted to the bilateral lower). Absent: normal inspection (Compression dressings noted to bilateral lower extremities) - Back Exam Back exam: Present: normal inspection - Neurological Exam Neurological exam: Present: alert, oriented X3, CN II-XII intact - Psychiatric Psychiatric exam: Present: normal affect, normal mood - Skin Skin exam: Present: normal color, warm, dry Results - Labs CBC & BMP: 05/17/17 06:34 05/17/17 06:35 Lab Results: I have reviewed the past 24 hour labs Quality Measures - VTE Contraindication to Mechanical VTE Prophylaxis: Vascular Ulceration
--- NOTE | 2017-05-17 08:50 | Ultrasound Report ---
History is cirrhosis and elevated ammonia levels The liver is 17.0 cm in length. There is slight increased echogenicity of the liver with slight attenuation of the ultrasound beam No gallstones or biliary ductal dilatation is seen No right renal hydronephrosis seen Visualized pancreas is normal in size. Visualized proximal IVC and aorta is normal in size Visualization is somewhat limited by body habitus and inability to the breath hold. Impression: Mildly limited visualization with question of fatty infiltration of the liver PROCEDURE INTERPRETED AT [facility] DEPARTMENT OF RADIOLOGY Final Report Signed by: Dr. Chelly Ortiz
[2017-05-17] MEDS: DIGOXIN 0.25 MG TABLET PO SCH (09:29)
[2017-05-17] MEDS: LISINOPRIL 20 MG TABLET PO SCH (09:29)
[2017-05-17] MEDS: DILTIAZEM CD 180 MG CAPSULE PO SCH (09:30)
[2017-05-17] MEDS: PANTOPRAZOLE 40 MG TABLET PO SCH (09:30)
[2017-05-17] MEDS: ISOSORBIDE DINITRATE 20 MG TABLET PO SCH ×2 (09:31→21:06)
[2017-05-17] MEDS: INSULIN GLARGINE 100 UNIT/ML SUBCUT SCH ×2 (09:31→21:07)
[2017-05-17] MEDS: METOPROLOL TARTRATE 100 MG TABLET PO SCH ×2 (09:31→16:53)
[2017-05-17] MEDS: INSULIN REGULAR 100 UNIT/ML SUBCUT SCH ×4 (09:32→21:23)
[2017-05-17] MEDS ORDERED: TUBERCULIN SKIN TEST 0.1 ML SYRINGE INTRADERM ONE (12:49)
[2017-05-17] MEDS: CIPROFLOXACIN 500 MG TABLET PO SCH ×2 (13:14→21:07)
--- NOTE | 2017-05-17 13:56 | XRay Report ---
XR chest 1V Indication: jail placement Comparison: Chest x-ray May 15, 2017 Technique: Single frontal view of the chest. Findings: Continued cardiomegaly without tavon pulmonary edema. Probable mild scarring/atelectasis within the left lung base. Visualized osseous and surrounding soft tissue structures appear grossly unchanged. IMPRESSION: As above. PROCEDURE INTERPRETED AT [facility] DEPARTMENT OF RADIOLOGY Final Report Signed by: Dr Migue Clark
--- NOTE | 2017-05-17 15:38 | Sleep Medicine Progress Note ---
Assessment and Plan (1) Obstructive sleep apnea Status: Chronic Assessment and plan: He did poorly with CPAP and we will switch him to auto titration BiPAP. Current Visit: No Sleep Medicine Subjective Interval history: Patient did poorly last night with auto titration CPAP. He only was able to keep it on about an hour and a half. He just felt short of breath using it. His average AHI on it was over 13. We will switch him to an auto titration BiPAP and see if he does better. Will need to work on mask fit to help with compliance. Exam (Progress Note) - Constitutional Vitals: Period Temp Pulse Resp BP Sys/Pierre Pulse Ox Last 24 Hr 96.4 F-97.7 F 68-87 16-20 117-155/67-94 95-97 Exam: He is alert and responsive in no acute distress. HEENT unremarkable. He has class IV Mallampati exam. Neck supple without adenopathy or thyromegaly. Chest with fair air movement no significant wheeze rhonchi. Cardiac exam reveals a regular rhythm without murmur or gallop. Abdomen obese nontender without palpable hepatosplenomegaly or mass. Extremities with chronic edema and cellulitic changes with an open wound on the left lower leg. Neurologically , he is grossly intact. Results - Labs CBC & BMP: 05/17/17 06:34 05/17/17 06:35 Lab Results: I have reviewed the past 24 hour labs
[2017-05-17] MEDS: WARFARIN 5 MG TABLET PO SCH (16:53)
[2017-05-17] MEDS: MELATONIN 3 MG TABLET PO SCH (21:06)
[2017-05-17] MEDS: LOVASTATIN 20 MG TABLET PO SCH (21:07)
[2017-05-18 07:36] LABS: Basophils # 0.1 10*3/uL (0.0-0.2); Basophils % 1.3 % (0.0-0.8); Eosinophils # 0.3 10*3/uL (0.0-0.87); Eosinophils % 2.9 % (0.00-10.9); Hematocrit 41.4 VOL% (42.0-52.0); Hemoglobin 13.8 GM/DL (14.0-18.0); Lymphocytes # 2.8 10*3/uL (1.4-4.0); Lymphocytes % 29.1 % (21.2-54.2); Mean Corpuscular HGB Conc 33.3 GM/DL (32-36); Mean Corpuscular Hemoglobin 28 PG (27-34); Mean Corpuscular Volume 83.1 FL (87-102); Mean Platelet Volume 10.3 FL (9.6-12.0); Monocytes # 0.7 10*3/uL (0.11-0.8); Monocytes % 7.4 % (1.7-12.7); Neutrophils # 5.6 10*3/uL (1.4-7.4); Neutrophils % 58.3 % (38.7-73.9); Platelet Count 189 T/CUMM (130-400); Red Blood Count 4.98 MC/CUMM (3.8-5.5); Red Cell Distribution Width 16.8 % (9.3-17.3); White Blood Count 9.6 T/CUMM (4-12)
[2017-05-18 08:15] LABS: Alanine Aminotransferase 22 U/L (16-61); Albumin 2.8 G/DL (3.4-5.0); Alkaline Phosphatase 73 U/L (45-117); Aspartate Amino Transferase 6 U/L (0-37); Bilirubin,Total < 0.39 MG/DL (0.2-1.0); Blood Urea Nitrogen 14 MG/DL (7-18); Calcium 8.3 MG/DL (8.5-10.1); Glucose 119 MG/DL (74-106); Magnesium 2.1 MG/DL (1.8-2.4); Osmolality,Calculated 278.5 MOS/KG (273-304); Phosphorous 2.5 MG/DL (2.5-4.9); Sodium 139 MMOL/L (136-145); Total Protein 6.3 G/DL (6.4-8.3)
--- NOTE | 2017-05-18 08:49 | XRay Report ---
Exam: XR chest 1V portable Indication: Cardiac megaly, COPD Comparison study: 05/17/2017 Findings: Cardiac silhouette is enlarged, similar to prior. There are left basilar opacities which are slightly improved from prior and may represent atelectasis, infiltrates and/or basilar pleural effusions. There is no pneumothorax. Impression: Similar appearance of the chest with cardiomegaly and minimal improvement in left basilar opacities which are nonspecific. PROCEDURE INTERPRETED AT [facility] DEPARTMENT OF RADIOLOGY Final Report Signed by: Jos Mann
[2017-05-18 09:01] LABS: INR 1.7; PT Patient Result 17.8 SECS
[2017-05-18] MEDS: LISINOPRIL 20 MG TABLET PO SCH (09:16)
[2017-05-18] MEDS: INSULIN GLARGINE 100 UNIT/ML SUBCUT SCH ×2 (09:16→20:16)
[2017-05-18] MEDS: ISOSORBIDE DINITRATE 20 MG TABLET PO SCH ×2 (09:17→20:16)
[2017-05-18] MEDS: DILTIAZEM CD 180 MG CAPSULE PO SCH (09:18)
[2017-05-18] MEDS: DIGOXIN 0.25 MG TABLET PO SCH (09:18)
[2017-05-18] MEDS: METOPROLOL TARTRATE 100 MG TABLET PO SCH ×2 (09:18→17:39)
[2017-05-18] MEDS: CIPROFLOXACIN 500 MG TABLET PO SCH (09:18)
[2017-05-18] MEDS: PANTOPRAZOLE 40 MG TABLET PO SCH (09:19)
--- NOTE | 2017-05-18 10:33 | Hospitalist Progress Note ---
Assessment and Plan (1) Cellulitis Status: Acute Assessment and plan: Patient encouraged to keep lower extremities elevated at all times. Wound care has been consulted to evaluate and treat the chronic lower extremity wounds. We will continue IV antibiotic coverage as previously ordered. We will consult infectious disease to evaluate and treat. 05/17-we will continue wound care and antibiotic coverage per ID recommendation. The patient has been advised to keep lower extremities elevated at all times. The patient reports issues regarding wound care in the home environment. Case management consultation has been requested to evaluate the patient's home living situation. I feel that the patient will greatly benefit from swing bed placement. We will consult physical therapy and Occupational Therapy to evaluate and treat. 05/18-wound care or antibiotic coverage remains in progress. Case management has been consulted to evaluate for swing bed placement. We will continue physical and occupational therapy as previously ordered. Current Visit: Yes Qualifiers: Site of cellulitis of extremity: lower extremity Laterality: unspecified laterality (2) Chronic anticoagulation Status: Chronic Assessment and plan: The patient is chronically anticoagulated with warfarin. PT and INR was noted at 1.2/12.5 on yesterday. We will obtain stat PT/INR. We will consult pharmacy to manage Coumadin therapy. 05/17-PT/INR noted at 1.5/15.8. Pharmacy to manage Coumadin dose. 05/18-PT/INR noted at 1.7/17.8. Pharmacy to manage Coumadin dose. Current Visit: No (3) Congestive heart failure Status: Acute Assessment and plan: Chest x-ray at the time of admission was significant for cardiomegaly with venous congestion. BNP on yesterday was noted at 91. Echocardiogram on 2016 reported normal left ventricular ejection fraction at greater than 55%. The patient was diuresed on yesterday. We will diurese today and recheck chest x-ray in a.m. 05/18-slight improvement in chest x-ray. We will continue diuresis as previously ordered. Will recheck chest x-ray in a.m. Current Visit: No (4) Diabetes Status: Acute Assessment and plan: Hemoglobin A1c was noted at 8.5. Upon review of glucose levels overnight, the patient has remained consistently elevated. We will start Accu-Cheks with sliding scale coverage. Upon review of the patient's medical record, the patient had been previously receiving Levemir 125 units daily. We will start Levemir 50 units twice daily. We will monitor blood glucose levels closely. Current Visit: No Hospitalist: Subjective Interval history: Patient seen and examined; chart reviewed. No significant overnight events reported. Case management has been consulted to evaluate for possible swing bed placement at the time of discharge. Exam - Constitutional Vitals: Period Temp Pulse Resp BP Sys/Pierre Pulse Ox Last 24 Hr 97.0 F-98.2 F 76-88 18-20 112-148/63-87 94-96 General appearance: no acute distress, morbidly obese - Head Head exam: Present: normal inspection, normocephalic, atraumatic - Eye Eye exam: Present: EOMI. Absent: conjunctival injection Pupils: Present: NAT, normal accommodation - ENT ENT exam: Present: normal exam, normal external ear exam, normal oropharynx - Neck Neck exam: Present: normal inspection. Absent: lymphadenopathy, meningismus, tenderness, thyromegaly - Respiratory Respiratory exam: Present: clear to auscultation bilaterally. Absent: rales, rhonchi, stridor - Cardiovascular Cardiovascular exam: Present: regular rate and rhythm. Absent: carotid bruit, diastolic murmur, gallop, JVD, rubs, systolic murmur - GI/Abdominal GI/Abdominal exam: Present: normal bowel sounds, soft - Extremities Exam Extremities exam: Present: normal capillary refill, full ROM, edema (+3 edema noted to bilateral lower extremity). Absent: normal inspection (Bilateral compression dressings noted to lower extremities) - Back Exam Back exam: Present: normal inspection - Neurological Exam Neurological exam: Present: alert, oriented X3, CN II-XII intact - Psychiatric Psychiatric exam: Present: normal affect, normal mood - Skin Skin exam: Present: normal color, warm, dry, other (Chronic ulcerations noted to bilateral lower extremity) Results - Labs CBC & BMP: 05/18/17 07:15 05/18/17 07:15 Lab Results: I have reviewed the past 24 hour labs Quality Measures - VTE Contraindication to Mechanical VTE Prophylaxis: Vascular Ulceration
[2017-05-18] MEDS: INSULIN REGULAR 100 UNIT/ML SUBCUT SCH ×5 (13:09→20:17)
[2017-05-18] MEDS: WARFARIN 7.5 MG TABLET PO SCH (16:07)
[2017-05-18] MEDS: LOVASTATIN 20 MG TABLET PO SCH (20:16)
[2017-05-18] MEDS: MELATONIN 3 MG TABLET PO SCH (20:16)
[2017-05-19 07:03] LABS: INR 1.8; PT Patient Result 18.5 SECS
[2017-05-19] MEDS: INSULIN REGULAR 100 UNIT/ML SUBCUT SCH ×4 (08:12→21:02)
[2017-05-19] MEDS ORDERED: CIPROFLOXACIN 250 MG TABLET PO SCH ×2 (09:00→09:17)
[2017-05-19] MEDS ORDERED: CIPROFLOXACIN 500 MG TABLET PO SCH (09:00)
--- NOTE | 2017-05-19 09:02 | Hospitalist Progress Note ---
Assessment and Plan (1) Cellulitis Status: Acute Assessment and plan: Patient encouraged to keep lower extremities elevated at all times. Wound care has been consulted to evaluate and treat the chronic lower extremity wounds. We will continue IV antibiotic coverage as previously ordered. We will consult infectious disease to evaluate and treat. 05/17-we will continue wound care and antibiotic coverage per ID recommendation. The patient has been advised to keep lower extremities elevated at all times. The patient reports issues regarding wound care in the home environment. Case management consultation has been requested to evaluate the patient's home living situation. I feel that the patient will greatly benefit from swing bed placement. We will consult physical therapy and Occupational Therapy to evaluate and treat. 05/18-wound care or antibiotic coverage remains in progress. Case management has been consulted to evaluate for swing bed placement. We will continue physical and occupational therapy as previously ordered. 05/19-wound care and antibiotic coverage remains in progress. Case management has been consulted for swing bed placement. Physical and Occupational Therapy remain in progress. Current Visit: Yes Qualifiers: Site of cellulitis of extremity: lower extremity Laterality: unspecified laterality (2) Chronic anticoagulation Status: Chronic Assessment and plan: The patient is chronically anticoagulated with warfarin. PT and INR was noted at 1.2/12.5 on yesterday. We will obtain stat PT/INR. We will consult pharmacy to manage Coumadin therapy. 05/17-PT/INR noted at 1.5/15.8. Pharmacy to manage Coumadin dose. 05/18-PT/INR noted at 1.7/17.8. Pharmacy to manage Coumadin dose. 05/19-PT/INR noted at 1.8/18.5. Pharmacy to manage Coumadin dose. Current Visit: No (3) Congestive heart failure Status: Acute Assessment and plan: Chest x-ray at the time of admission was significant for cardiomegaly with venous congestion. BNP on yesterday was noted at 91. Echocardiogram on 2016 reported normal left ventricular ejection fraction at greater than 55%. The patient was diuresed on yesterday. We will diurese today and recheck chest x-ray in a.m. 05/18-slight improvement in chest x-ray. We will continue diuresis as previously ordered. Will recheck chest x-ray in a.m. 05/19-we will continue diuresis and recheck chest x-ray in a.m. Current Visit: No (4) Diabetes Status: Acute Assessment and plan: Hemoglobin A1c was noted at 8.5. Upon review of glucose levels overnight, the patient has remained consistently elevated. We will start Accu-Cheks with sliding scale coverage. Upon review of the patient's medical record, the patient had been previously receiving Levemir 125 units daily. We will start Levemir 50 units twice daily. We will monitor blood glucose levels closely. Current Visit: No Hospitalist: Subjective Interval history: Patient seen and examined; chart reviewed. No significant overnight events reported per staff. Case management has been consulted for discharge planning for placement at the time of discharge. Exam - Constitutional Vitals: Period Temp Pulse Resp BP Sys/Pierre Pulse Ox Last 24 Hr 96.7 F-98.2 F 66-86 18-20 118-152/45-93 91-96 General appearance: morbidly obese - Head Head exam: Present: normal inspection, normocephalic, atraumatic - Eye Eye exam: Present: EOMI. Absent: conjunctival injection Pupils: Present: NAT, normal accommodation - ENT ENT exam: Present: normal exam, normal external ear exam, normal oropharynx - Neck Neck exam: Present: normal inspection. Absent: lymphadenopathy, meningismus, thyromegaly - Respiratory Respiratory exam: Present: clear to auscultation bilaterally. Absent: rales, rhonchi, stridor, wheezes - Cardiovascular Cardiovascular exam: Present: irregular rhythm, regular rate and rhythm, other. Absent: carotid bruit, diastolic murmur, systolic murmur - GI/Abdominal GI/Abdominal exam: Present: normal bowel sounds, soft - Extremities Exam Extremities exam: Present: edema (+4 pitting edema noted to bilateral lower extremities), other (Compression dressing noted to bilateral lower extremity) - Back Exam Back exam: Present: normal inspection - Neurological Exam Neurological exam: Present: alert, oriented X3, CN II-XII intact - Psychiatric Psychiatric exam: Present: normal affect, normal mood - Skin Skin exam: Present: normal color, warm, dry Results - Labs CBC & BMP: 05/18/17 07:15 05/18/17 07:15 Lab Results: I have reviewed the past 24 hour labs Quality Measures - VTE Contraindication to Mechanical VTE Prophylaxis: Vascular Ulceration
[2017-05-19] MEDS: INSULIN GLARGINE 100 UNIT/ML SUBCUT SCH ×2 (09:16→21:03)
[2017-05-19] MEDS: DIGOXIN 0.25 MG TABLET PO SCH (09:17)
[2017-05-19] MEDS: DILTIAZEM CD 180 MG CAPSULE PO SCH (09:17)
[2017-05-19] MEDS: LISINOPRIL 20 MG TABLET PO SCH (09:18)
[2017-05-19] MEDS: PANTOPRAZOLE 40 MG TABLET PO SCH (09:18)
[2017-05-19] MEDS: ISOSORBIDE DINITRATE 20 MG TABLET PO SCH ×2 (09:18→21:01)
[2017-05-19] MEDS: METOPROLOL TARTRATE 100 MG TABLET PO SCH ×3 (09:18→18:06)
--- NOTE | 2017-05-19 12:53 | Sleep Medicine Progress Note ---
Assessment and Plan (1) Obstructive sleep apnea Status: Chronic Assessment and plan: We will continue with auto titration BiPAP but schedule him for outpatient titration study. We will have to check and see if he requires diagnostic study for insurance purposes. This will be necessary if we do not have prior documentation of known obstructive sleep apnea. Current Visit: No Sleep Medicine Subjective Interval history: Patient continues to have issues tolerating therapy for obstructive sleep apnea. He was switched to BiPAP on Tuesday. He states he still is awakening from sleep with a sensation of air hunger. Ultimately, he would probably best be served with an lab titration given these difficulties. We will set this up after discharge and continue to work with him on auto titration BiPAP while here. Exam (Progress Note) - Constitutional Vitals: Period Temp Pulse Resp BP Sys/Pierre Pulse Ox Last 24 Hr 97.1 F-98.2 F 66-82 18-20 118-152/45-96 91-96 Exam: He is alert and responsive in no acute distress. HEENT unremarkable. He has class IV Mallampati exam. Neck supple without adenopathy or thyromegaly. Chest with fair air movement no significant wheeze rhonchi. Cardiac exam reveals a regular rhythm without murmur or gallop. Abdomen obese nontender without palpable hepatosplenomegaly or mass. Extremities with chronic edema and cellulitic changes with an open wound on the left lower leg. Neurologically , he is grossly intact. Results - Labs CBC & BMP: 05/18/17 07:15 05/18/17 07:15 Lab Results: I have reviewed the past 24 hour labs
[2017-05-19] MEDS: CIPROFLOXACIN 250 MG TABLET PO SCH (14:44)
[2017-05-19] MEDS: WARFARIN 5 MG TABLET PO SCH (17:36)
[2017-05-19] MEDS: MELATONIN 3 MG TABLET PO SCH (21:01)
[2017-05-19] MEDS: LOVASTATIN 20 MG TABLET PO SCH (21:01)
[2017-05-20 07:58] LABS: PT Patient Result 20.9 SECS
[2017-05-20] MEDS: CIPROFLOXACIN 250 MG TABLET PO SCH (08:40)
[2017-05-20] MEDS: DIGOXIN 0.25 MG TABLET PO SCH (08:40)
[2017-05-20] MEDS: METOPROLOL TARTRATE 100 MG TABLET PO SCH (08:40)
[2017-05-20] MEDS: PANTOPRAZOLE 40 MG TABLET PO SCH (08:40)
[2017-05-20] MEDS: LISINOPRIL 20 MG TABLET PO SCH (08:40)
[2017-05-20] MEDS: ISOSORBIDE DINITRATE 20 MG TABLET PO SCH (08:40)
[2017-05-20] MEDS: DILTIAZEM CD 180 MG CAPSULE PO SCH (08:40)
[2017-05-20] MEDS: INSULIN GLARGINE 100 UNIT/ML SUBCUT SCH (08:41)
[2017-05-20] MEDS: INSULIN REGULAR 100 UNIT/ML SUBCUT SCH ×2 (08:41→12:10)
--- NOTE | 2017-05-20 08:59 | Hospitalist Progress Note ---
Assessment and Plan - Time spent with patient Time spent with patient: Greater than 30 minutes (1) Cellulitis Status: Acute Current Visit: Yes Qualifiers: Site of cellulitis of extremity: lower extremity Laterality: unspecified laterality (2) Congestive heart failure Status: Acute Current Visit: No (3) Diabetes Status: Acute Current Visit: No (4) Lower extremity edema Status: Acute Current Visit: No (5) A-fib Status: Chronic Current Visit: No (6) Chronic anticoagulation Status: Chronic Current Visit: No (7) Hyperlipidemia Status: Chronic Current Visit: No (8) Hypertension Status: Chronic Current Visit: No (9) Lymphedema of both lower extremities Status: Chronic Assessment and plan: We will continue current management which involves local wound care and oral antibiotics. If we find placement today, she is medically stable to go. She will continue on her oral antibiotics for a few more days and then stop. Continue oral anticoagulation, monitor INR. Blood sugars are in acceptable range, continue current insulin regimen. Medically okay to go to rehab once placement is found. Current Visit: No Hospitalist: Subjective Interval history: 57-year-old man with history of CHF, hypertension, coronary artery disease, diabetes, hyperlipidemia, asthma, COPD who is being managed for cellulitis in bilateral lower extremity. He is currently on oral antibiotics and has done well so far. He is awaiting placement at the rehab facility. He has no new complaints today, I discussed the case management, hopefully be able to find a place in the next 24 hours. Exam - Constitutional Vitals: Period Temp Pulse Resp BP Sys/Pierre Pulse Ox Last 24 Hr 96.3 F-98.2 F 58-82 19-20 120-133/53-80 93-98 Exam: General appearance: morbidly obese - Head Head exam: Present: normal inspection, normocephalic, atraumatic - Eye Eye exam: Present: EOMI. Absent: conjunctival injection Pupils: Present: NAT, normal accommodation - ENT ENT exam: Present: normal exam, normal external ear exam, normal oropharynx - Neck Neck exam: Present: normal inspection. Absent: lymphadenopathy, meningismus, thyromegaly - Respiratory Respiratory exam: Present: clear to auscultation bilaterally. Absent: rales, rhonchi, stridor, wheezes - Cardiovascular Cardiovascular exam: Present: irregular rhythm, regular rate and rhythm, other. Absent: carotid bruit, diastolic murmur, systolic murmur - GI/Abdominal GI/Abdominal exam: Present: normal bowel sounds, soft - Extremities Exam Extremities exam: Present: edema (+4 pitting edema noted to bilateral lower extremities), other (Compression dressing noted to bilateral lower extremity) - Back Exam Back exam: Present: normal inspection - Neurological Exam Neurological exam: Present: alert, oriented X3, CN II-XII intact - Psychiatric Psychiatric exam: Present: normal affect, normal mood - Skin Skin exam: Present: normal color, warm, dry Results - Labs CBC & BMP: 05/18/17 07:15 05/18/17 07:15 Lab Results: I have reviewed the past 24 hour labs Quality Measures - VTE Contraindication to Mechanical VTE Prophylaxis: Vascular Ulceration Specialty Discharge - Follow Up or Referrals
--- NOTE | 2017-05-20 11:54 | Sleep Medicine Progress Note ---
Assessment and Plan (1) Obstructive sleep apnea Status: Chronic Assessment and plan: Sleep study will be set up for titration after discharge. Current Visit: No Sleep Medicine Subjective Interval history: Patient is continued to do poorly with auto titration CPAP and BiPAP. We are going to need to set him up for titration study after discharge. This will be scheduled. Exam (Progress Note) - Constitutional Vitals: Period Temp Pulse Resp BP Sys/Pierre Pulse Ox Last 24 Hr 96.3 F-98.2 F 58-70 19-20 120-133/53-75 93-98 Exam: He is alert and responsive in no acute distress. HEENT unremarkable. He has class IV Mallampati exam. Neck supple without adenopathy or thyromegaly. Chest with fair air movement no significant wheeze rhonchi. Cardiac exam reveals a regular rhythm without murmur or gallop. Abdomen obese nontender without palpable hepatosplenomegaly or mass. Extremities with chronic edema and cellulitic changes with an open wound on the left lower leg. Neurologically , he is grossly intact. Results - Labs CBC & BMP: 05/18/17 07:15 05/18/17 07:15 Lab Results: I have reviewed the past 24 hour labs Specialty Discharge - Follow Up or Referrals
[2017-05-20 12:10] VITALS: BP 135/76
--- NOTE | 2017-05-20 12:10 | Discharge Summary ---
Diagnosis - Discharge Diagnosis (1) Cellulitis Status: Acute (2) Congestive heart failure Status: Acute (3) Diabetes Status: Acute (4) Lower extremity edema Status: Acute (5) A-fib Status: Chronic (6) Chronic anticoagulation Status: Chronic (7) Hyperlipidemia Status: Chronic (8) Hypertension Status: Chronic (9) Lymphedema of both lower extremities Status: Chronic Specialty Discharge - Follow Up or Referrals Discharge Plan - Discharge Data Disposition: Swing Bed, Hos Based, [facility] Condition at Discharge: Stable Discharge Diet: diabetic diet, heart healthy, low salt diet Activity: as per physical therapy - Discharge Medications New Ciprofloxacin Tab [Cipro Tab] 250 mg PO DAILY tablet HYDROcodone/ACETAMIN 5-325 [[place] 5-325] 1 tablet PO Q4H PRN #20 tablet PRN Reason: Pain Mild (1-3) Insulin Glargine [Lantus] 50 unit SUBCUT BID unit Insulin Regular [HumuLIN R] See Protocol SUBCUT ACHS unit Pantoprazole Tab [Protonix Tab] 40 mg PO DAILY tablet Gabapentin Cap/Tab [Neurontin Cap/Tab] 200 mg PO BID capsule Continue dilTIAZem HCl [Diltiazem ER (24 hr)] 360 mg PO QAM Warfarin [Coumadin] 5 mg PO SUTUTHSA Isosorbide Dinitrate 40 mg PO BID Sitagliptin Phos/Metformin HCl [Janumet 50-1,000 mg Tablet] 50 mg PO BID Metoprolol Tartrate 100 mg PO BID W/MEALS Digoxin Tab [Lanoxin Tab] 0.25 mg PO QAM Lovastatin 20 mg PO BEDTIME Warfarin [Coumadin] 7.5 mg PO MOWEFR Lisinopril 40 mg PO QAM Melatonin 10 mg PO BEDTIME Furosemide 40 mg PO DAILY Discontinued Insulin Detemir [Levemir] 125 units SUBCUT QAM - Follow Up or Referral - Forms/Instructions Instructions: Heart Failure (DC), Sleep Apnea Syndrome (DC), Cellulitis (DC) Additional Discharge Instructions: Follow-up with PCP in 2-4 weeks. Follow-up with sleep medicine for sleep study as outpatient. Infectious disease follow- up in 4-6 weeks. Exam - Constitutional Vitals: Period Temp Pulse Resp BP Sys/Pierre Pulse Ox Last 24 Hr 96.3 F-98.2 F 58-70 19-20 120-133/53-75 93-98 Discharge Results Procedures and tests throughout hospitalization: Pending Orders 05/21/17 04:00 CBC [Comp Blood Count Auto Diff] IN AM CMP [Comprehensive Metabolic Panel] IN AM Magnesium IN AM Phosphorous IN AM Prothrombin Time INR IN AM Labs on day of discharge: Labs from last 24 hours 05/20/17 05/20/17 05/20/17 11:41 07:12 07:07 INR 2.0 PT Patient/Control Mix 20.9 POC Glucose 169 H 170 H 05/19/17 05/19/17 19:44 16:31 INR PT Patient/Control Mix POC Glucose 215 H 99 DS: Provider Date of admission: 05/15/17 15:40 Primary care physician: . No PCP Attending physician on admission: Alessandro Beltran MD Consults: 05/15/17 17:48 Consult to Wound Care - [place] [CONS] Routine Reason for Wound Care: Wound Care Management 05/16/17 09:26 Consult to Pharmacy [CONS] Routine Reason for Pharmacy Consult: Other Comment: Coumadin management Consult to Physician [CONS] Routine Comment: Consulting Provider: La Cronin When should Consulting Provider be notified: Lucila Person Notified: Michelle Date Notified: 05/16/17 Time Notified: 09:58 05/16/17 09:27 Consult to Physician [CONS] Routine Comment: Consulting Provider: Lyndsay Mahajan Person Notified: Adrienne Date Notified: 05/16/17 Time Notified: 10:00 05/17/17 08:41 Consult to Case Mgmt/Social Srvs [CONS] Routine Reason for Case Mgmt/Social Srvs: Rehab Other 05/17/17 08:47 Consult to Case Mgmt/Social Srvs [CONS] Routine Reason for Case Mgmt/Social Srvs: Rehab Other 05/17/17 08:48 Consult to Occupational Therapy [CONS] Routine Reason for Occupational Therapy: Evaluate and Treat Consult to Physical Therapy [CONS] Routine Reason for Physical Therapy: Evaluate and Treat Start Therapy: Today 05/18/17 09:39 Consult to Case Mgmt/Social Srvs [CONS] Routine Reason for Case Mgmt/Social Srvs: Rehab Other Swingbed/SNF/Senior Living Consult Comment: [facility] Discharging clinician: Den Brewer MD
[2017-05-20] MEDS ORDERED: GABAPENTIN 100 MG CAPSULE PO SCH (21:00)
== END 2017-05-20 15:47 | disposition swing bed (61) | DRG 383 ==
LOC: EDUNIT# → N.ED 10:35 → N.EDINP 15:40 → SUATTDRO 15:40 → N.EDINP 17:43 → N.5E 17:47
PROVIDERS: ADMIT Internal Medicine Infectious Disease; ATTEND Internal Medicine